=== PATIENT | male | born 1990 | race Caucasian/White ===

== ENCOUNTER 2017-06-11 11:19 | Emergency (ER) | payer BC, OTHER ==
[~2017-06-11] VITALS: Ht 175.3 cm; Wt 111.9 kg
[~2017-06-11 11:19] MED LIST: ALBUAER INH; AMPH30TA2 PO; LAMO1TAB21 PO; LNS3 PO; OMEP20CA9 PO; SERT-234 PO
[2017-06-11 11:21] VITALS: TEMP 36.7; Ht 175.3 cm; Wt 111.9 kg
[2017-06-11] MEDS ORDERED: SODIUM CHLORIDE 0.9% 1000ML 1,000 ML IV STA (11:51)
[2017-06-11] MEDS ORDERED: HYDROmorphone INJ 1 MG/ML SYR IV STA (11:51)
[2017-06-11] MEDS ORDERED: ONDANSETRON INJ 2 MG/ML 2 ML VIAL IV STA (11:51)
--- NOTE | 2017-06-11 11:54 | EMERGENCY ROOM VISIT NOTE ---
History First contact with patient: 11:47 Chief Complaint: URINARY SYMPTOMS Stated Complaint: URINATING BLOOD, BACK PAIN, TESTICLE PAIN Nursing Triage Summary: Pt c/o right-sided flank pain and testicular pain along with nausea. Admits to hematuria and burning with urination. Hx of kidney stones. History of Present Illness The patient is a 26 year old male who presents to the Emergency Room with complaints of right-sided flank pain. The patient states that he has had some mild pain since last Thursday. He states the pain has progressively worsened and today it was not tolerable. The patient rates his discomfort a 10/10. He reports the pain radiates into the right abdomen and right testicle. He reports dysuria and hematuria. He has a history of kidney stones but states this feels worse. He denies any fevers. He denies any earache, sore throat, cough. Review of Systems A 10 system review of systems was completed with positives and pertinent negatives listed in the HPI. Past Medical/Surgical History Medical Problems: (1) No significant medical problems Surgical Problems: (1) No significant past surgical history Social History Smoking Status: Never Smoker Alcohol Use: occasionally Marital Status: single Occupation Status: employed Current/Historical Medications Scheduled Eszopiclone (Lunesta), 3 MG PO DAILY Lamotrigine (Lamotrigine), 100 MG PO DAILY Tamsulosin Hcl (Flomax), 0.4 MG PO DAILY Scheduled PRN Amphetamine-Dextroamphetamine 30MG (Adderall 30MG), 30 MG PO DAILY PRN for INABILITY TO CONCENTRATE Omeprazole (Prilosec), 20 MG PO DAILY PRN for REFLUX Oxycodone Ir (Roxicodone Ir), 1-2 TAB PO Q4H PRN for Pain Physical Exam Vital Signs Date Time Temp Pulse Resp B/P (MAP) Pulse Ox O2 Delivery O2 Flow Rate FiO2 06/11/17 14:25 68 16 123/89 95 06/11/17 13:02 69 18 138/95 94 Room Air 06/11/17 11:21 36.7 89 20 148/110 93 Room Air Physical Exam VITALS: Vitals are noted on the nurse's note and reviewed by myself. Vital signs stable. GENERAL: This is a 26-year-old male, who appears to be in pain, nondiaphoretic, well-developed well-nourished. SKIN: The skin was without rashes, erythema, edema, or bruising. There is no tenting of the skin. Capillary reflex less than 2 seconds. HEAD: Normocephalic atraumatic. EARS: The external ears are normal in appearance. EYES: Pupils equal round and reactive to light and accommodation. Conjunctivae without injection, sclerae without icterus. Extraocular movements intact. NOSE: Patent, turbinates without inflammation or discharge. MOUTH: Mucous membranes moist. Tonsils are not enlarged. Pharynx without erythema or exudate. Uvula midline. Airway patent. Tongue does not deviate. NECK: Supple without nuchal rigidity. No JVD. HEART: Regular rate and rhythm without murmurs gallops or rubs. LUNGS: Clear to auscultation bilaterally without wheezes, rales or rhonchi. No retractions or accessory muscle use. ABDOMEN: Positive bowel sounds x 4. Soft, mild right lower quadrant tenderness , without masses or organomegaly. Mild right sided CVA tenderness MUSCULOSKELETAL: No muscle atrophy, erythema, or edema noted. Full range of motion in all extremities. Strength 5/5 throughout. NEURO: Patient was alert and oriented to person place and time. No focal neurological deficits. Medical Decision & Procedures ER Provider Diagnostic Interpretation: ABD/PELVIS WITHOUT FOR STONE HISTORY: 26 years-old Male right flank pain, history of kidney stones COMPARISON: Abdominal radiographs 06/10/2015 TECHNIQUE: Multiple axial CT images of the abdomen and pelvis were obtained without IV contrast. A dose lowering technique was used consistent with the principals of ALARA. FINDINGS: There is minimal dependent bibasilar atelectasis. There is no pneumoperitoneum. The imaged inferior cardiac chambers are unremarkable. The liver, spleen, gallbladder, pancreas and adrenal glands appear normal. There are several nonobstructing renal calculi on the left measuring up to 7 mm. There is mild right-sided obstructive uropathy secondary to a 4 x 4 x 4 mm calculus of the distal right ureter just proximal to the ureterovesicular junction. Additionally, there is a punctate nonobstructing calculus of the appear pole right kidney. Urinary bladder is partially collapsed. Prostate is unremarkable. The abdominal aorta is normal in course and caliber without bulky adenopathy. There is a small duodenal diverticulum. No bowel obstruction. Moderate volume of formed stool seen within the rectosigmoid. The appendix appears noninflamed. Bones and soft tissues are unremarkable. Small annular disc bulge seen at L5-S1. IMPRESSION: 1. Mild right-sided obstructive uropathy secondary to a 4 x 4 x 4 mm calculus of the distal right ureter just proximal to the ureterovesicular junction. 2. Additional nonobstructing renal calculi are present, left greater than right. Laboratory Results 06/11/17 11:39 Red Blood Count 5.57, Mean Corpuscular Volume 86.9, Mean Corpuscular Hemoglobin 29.1, Mean Corpuscular Hemoglobin Concent 33.5, Mean Platelet Volume 9.4, Neutrophils (%) (Auto) 53.4, Lymphocytes (%) (Auto) 34.2, Monocytes (%) (Auto) 9.3, Eosinophils (%) (Auto) 2.7, Basophils (%) (Auto) 0.3, Neutrophils # (Auto) 4.18, Lymphocytes # (Auto) 2.68, Monocytes # (Auto) 0.73, Eosinophils # (Auto) 0.21, Basophils # (Auto) 0.02 06/11/17 11:39 Test 06/11/17 00:00 06/11/17 11:39 Urine Color RED Urine Appearance TURBID (CLEAR) Urine pH 6.0 (4.5-7.5) Urine Specific [place] 1.025 (1.000-1.030) Urine Protein 2+ (NEG) Urine Glucose (UA) NEG (NEG) Urine Ketones NEG (NEG) Urine Occult Blood 3+ (NEG) Urine Nitrite NEG (NEG) Urine Bilirubin 1+ (NEG) Urine Urobilinogen NEG (NEG) Urine Leukocyte Esterase NEG (NEG) Urine RBC >30 /hpf (0-4) Urine WBC 1-5 /hpf (0-5) Urine Epithelial Cells 0-5 /lpf (0-5) Urine Bacteria NEG (NEG) Urine Mucus PRESENT (NONE PRSENT) White Blood Count 7.83 K/uL (4.8-10.8) Red Blood Count 5.57 M/uL (4.7-6.1) Hemoglobin 16.2 g/dL (14.0-18.0) Hematocrit 48.4 % (42-52) Mean Corpuscular Volume 86.9 fL (80-100) Mean Corpuscular Hemoglobin 29.1 pg (25-34) Mean Corpuscular Hemoglobin Concent 33.5 g/dl (32-36) Platelet Count 254 K/uL (130-400) Mean Platelet Volume 9.4 fL (7.4-10.4) Neutrophils (%) (Auto) 53.4 % Lymphocytes (%) (Auto) 34.2 % Monocytes (%) (Auto) 9.3 % Eosinophils (%) (Auto) 2.7 % Basophils (%) (Auto) 0.3 % Neutrophils # (Auto) 4.18 K/uL (1.4-6.5) Lymphocytes # (Auto) 2.68 K/uL (1.2-3.4) Monocytes # (Auto) 0.73 K/uL (0.11-0.59) Eosinophils # (Auto) 0.21 K/uL (0-0.5) Basophils # (Auto) 0.02 K/uL (0-0.2) RDW Standard Deviation 41.0 fL (36.4-46.3) RDW Coefficient of Variation 12.7 % (11.5-14.5) Immature Granulocyte % (Auto) 0.1 % Immature Granulocyte # (Auto) 0.01 K/uL (0.00-0.02) Anion Gap 5.0 mmol/L (3-11) Est Creatinine Clear Calc Drug Dose 124.4 ml/min Estimated GFR () 106.1 Estimated GFR (Non- 91.5 BUN/Creatinine Ratio 10.5 (10-20) Calcium Level 9.2 mg/dl (8.5-10.1) Total Bilirubin 1.1 mg/dl (0.2-1) Aspartate Amino Transf (AST/SGOT) 16 U/L (15-37) Alanine Aminotransferase (ALT/SGPT) 38 U/L (12-78) Alkaline Phosphatase 82 U/L (45-117) Total Protein 7.8 gm/dl (6.4-8.2) Albumin 4.1 gm/dl (3.4-5.0) Globulin 3.7 gm/dl (2.5-4.0) Albumin/Globulin Ratio 1.1 (0.9-2) Lipase 101 U/L (73-393) Medications Administered Medications (Trade) Dose Ordered Sig/Brain Route Start Time Stop Time Status Last Admin Dose Admin Sodium Chloride 1,000 ml @ 999 mls/hr Q1H1M STAT IV 06/11/17 11:51 06/11/17 12:51 DC 06/11/17 11:58 999 MLS/HR Hydromorphone HCl (Dilaudid Inj) 1 mg NOW STAT IV 06/11/17 11:51 06/11/17 11:53 DC 06/11/17 11:58 1 MG Ondansetron HCl (Zofran Inj) 4 mg NOW STAT IV 06/11/17 11:51 06/11/17 11:53 DC 06/11/17 11:57 4 MG Ketorolac Tromethamine (Toradol Inj) 30 mg NOW STAT IV 06/11/17 13:04 06/11/17 13:06 DC 06/11/17 13:21 30 MG Tamsulosin HCl (Flomax Cap) 0.4 mg NOW ONCE PO 06/11/17 14:15 06/11/17 14:16 DC 06/11/17 14:06 0.4 MG ED Course The patient was seen and examined. Previous visits were reviewed. The patient does not have a fever or leukocytosis. He does not have any significant electrolyte abnormality. Lipase is not elevated. Urinalysis suggests contamination and hematuria. CT scan of the abdomen and pelvis reveals a 4 x 4 x 4 mm stone at the right UVJ. The patient does have several other stones in the poles of the kidneys and he was advised of this. The patient was hydrated with 1 L of normal saline solution He was given 1 mg IV Dilaudid and 4 mg IV Zofran and his pain improved only for a short time He was given 30 mg IV Toradol with marked improvement in his pain He was given oral Flomax The patient presents to the emergency department with right-sided flank pain. The patient has a history of kidney stones. He also has hematuria. The patient was found to have the above stone at the right UVJ. He is afebrile. He does not seem to have urinary tract infection. The patient was comfortable after the above treatment. I did discuss and offer admission to the hospital but the patient would like to try outpatient management. He was given prescriptions for Flomax and oxycodone. He was given the information for the on -call urologist in the event that his symptoms do not improve and he does not pass the stone. He should return to the ER with any worsening symptoms, intractable pain or fevers. The case was discussed with Dr. Munoz who agrees with the assessment and treatment plan. Medical Decision DIFFERENTIAL DIAGNOSIS: Hepatitis, cholecystitis, cholangitis, biliary colic, pancreatitis, pneumonia, subdiaphragmatic abscess, appendicitis, inguinal hernia , nephrolithiasis, inflammatory bowel disease, mesenteric adenitis, peptic ulcer disease, GERD, gastritis, pancreatitis, myocardial infarction, pericarditis, ruptured aortic aneurysm, appendicitis, gastroenteritis, bowel obstruction, splenic infarct, diverticulitis, mesenteric ischemia, metabolic, peritonitis, among others. [place] Drug Monitoring Program Search Results: patient reviewed within database, no issues identified Medication Reconcilliation Current Medication List: was personally reviewed by ak Blood Pressure Screening Patient's blood pressure: Normal blood pressure Blood pressure disposition: Did not require urgent referral Impression Primary Impression: Kidney stone Departure Information Dispostion Home / Self-Care Condition GOOD Prescriptions Oxycodone Ir (Roxicodone Ir) 5 Mg Tab 1-2 TAB PO Q4H Y for Pain, #36 TAB For Initial Treatment Prov: Lisseth Post PA-C 06/11/17 Tamsulosin Hcl (FLOMAX) 0.4 Mg Cap 0.4 MG PO DAILY for 7 Days, #7 CAP Prov: Lisseth Post PA-C 06/11/17 Referrals Rick Trejo M.D. (PCP) Jose Pradhan MD, Urology Forms HOME CARE DOCUMENTATION FORM, IMPORTANT VISIT INFORMATION, Work Instructions Return To Work: 3 days Patient Instructions [facility] [employer] Additional Instructions -Motrin 600 mg every 6-8 hours or moderate pain Oxy IR 1-2 tablets every 4-6 hrs as needed for worse pain. No driving or alcohol use with Oxy IR. Increase water intake Contact urology if symptoms are not improving Return with intractable pain or fevers
[2017-06-11 12:02] LABS: BASO % 0.3 %; BASO ABS # 0.02 K/uL (0-0.2); COMPLETE YES; EOS % 2.7 %; HEMATOCRIT 48.4 % (42-52); IG% 0.1 %; LYMPH % 34.2 %; LYMPH ABS # 2.68 K/uL (1.2-3.4); MEAN CELL VOLUME 86.9 fL (80-100); MEAN CORPUSCULAR HEMOGLOBIN 29.1 pg (25-34); MEAN CORPUSCULAR HGB CONC 33.5 g/dl (32-36); MEAN PLATELET VOLUME 9.4 fL (7.4-10.4); MONO % 9.3 %; NEUT % 53.4 %; PLATELET COUNT 254 K/uL (130-400); RED BLOOD COUNT 5.57 M/uL (4.7-6.1); WHITE BLOOD COUNT 7.83 K/uL (4.8-10.8)
[2017-06-11 12:19] LABS: MANUAL MICROSCOPIC REQUIRED? YES; URINE APPEARANCE TURBID (CLEAR); URINE COLOR RED; URINE NITRITE NEG (NEG); URINE SPECIFIC GRAVITY 1.025 (1.000-1.030); UROBILINOGEN NEG (NEG)
[2017-06-11 12:21] LABS: REVIEW REQ? NO; URINE BILIRUBIN 1+ (NEG)
[2017-06-11 12:22] LABS: BUN/CREATININE RATIO 10.5 (10-20); CALCIUM 9.2 mg/dl (8.5-10.1); CREATININE 1.1 mg/dl (0.60-1.40); POTASSIUM 3.9 mmol/L (3.5-5.1)
[2017-06-11 12:27] LABS: URINE BACTERIA NEG (NEG); URINE MUCUS PRESENT (NONE PRSENT); URINE RBC >30 /hpf (0-4)
[2017-06-11 12:28] LABS: ZZUR CULT IF INDIC CLEAN CATCH NO
[2017-06-11 12:30] LABS: ALB/GLOB RATIO 1.1 (0.9-2)
--- NOTE | 2017-06-11 12:58 | DIAGNOSTIC IMAGING REPORT ---
ABD/PELVIS WITHOUT FOR STONE HISTORY: 26 years-old Male right flank pain, history of kidney stones COMPARISON: Abdominal radiographs 06/10/2015 TECHNIQUE: Multiple axial CT images of the abdomen and pelvis were obtained without IV contrast. A dose lowering technique was used consistent with the principals of JADE. FINDINGS: There is minimal dependent bibasilar atelectasis. There is no pneumoperitoneum. The imaged inferior cardiac chambers are unremarkable. The liver, spleen, gallbladder, pancreas and adrenal glands appear normal. There are several nonobstructing renal calculi on the left measuring up to 7 mm. There is mild right-sided obstructive uropathy secondary to a 4 x 4 x 4 mm calculus of the distal right ureter just proximal to the ureterovesicular junction. Additionally, there is a punctate nonobstructing calculus of the appear pole right kidney. Urinary bladder is partially collapsed. Prostate is unremarkable. The abdominal aorta is normal in course and caliber without bulky adenopathy. There is a small duodenal diverticulum. No bowel obstruction. Moderate volume of formed stool seen within the rectosigmoid. The appendix appears noninflamed. Bones and soft tissues are unremarkable. Small annular disc bulge seen at L5-S1. IMPRESSION: 1. Mild right-sided obstructive uropathy secondary to a 4 x 4 x 4 mm calculus of the distal right ureter just proximal to the ureterovesicular junction. 2. Additional nonobstructing renal calculi are present, left greater than right. The above report was generated using voice recognition software. It may contain grammatical, syntax or spelling errors. Electronically signed by: Crispin Choi M.D. 06/11/2017 12:56 PM Dictated Date/Time: 06/11/2017 12:52 PM
[2017-06-11] MEDS ORDERED: KETOROLAC TROMETHAMINE 30 MG/ML VIAL IV STA (13:04)
[2017-06-11] MEDS ORDERED: TAMS0.4C38 PO (14:03)
[2017-06-11] MEDS ORDERED: OXYC1TAB3 PO (14:03)
[2017-06-11] MEDS ORDERED: TAMSULOSIN HCL 0.4 MG CAP PO ONE (14:15)
[2017-06-11 14:25] VITALS: BP 123/89; PULSE 68; O2SAT 95
[2017-06-16] MEDS ORDERED: SERT1TAB68 PO (16:17)
[2017-06-16] MEDS ORDERED: ZNTT/150 PO (16:17)
[2017-06-19] MEDS ORDERED: FLM4 (06:24)
[2017-07-07] MEDS ORDERED: ALUM-30 PO (10:21)
[2017-07-10] MEDS ORDERED: OXYC7.5T65 PO (07:45)
[2017-07-13] MEDS ORDERED: OXYB5TAB PO (16:35)
[2017-07-13] MEDS ORDERED: FLM4 PO (16:35)
== END 2017-06-11 14:25 | disposition home or self-care (01) ==
LOC: C.EDB 11:21 → C.EDA 14:25
DX: N20.0 Calculus of kidney (principal); Z87.442 Personal history of urinary calculi; Z79.899 Other long term (current) drug therapy

== ENCOUNTER → 2017-06-16 | Outpatient (CLI) | payer BC ==
[~2017-06-16] MED LIST changes: -ALBUAER INH; +ALUM-30 PO; +FLM4; +FLM4 PO; +ONDA4TAB10 SL; +OXYB5TAB PO; +OXYC1TAB3 PO; +OXYC7.5T65 PO; -SERT-234 PO; +SERT1TAB68 PO; +TAMS0.4C38 PO; +ZNTT/150 PO
--- NOTE | 2017-06-16 17:13 | DIAGNOSTIC IMAGING REPORT ---
CHEST 2 VIEWS ROUTINE CLINICAL HISTORY: N20.1 Right ureteral calculus PREOPERATIVE CHEST COMPARISON STUDY: No previous studies for comparison. FINDINGS: The cardiac and mediastinal contours are normal. There is no evidence of focal pulmonary consolidation. There is no evidence of failure. No pleural effusions are visualized.[ There are sequela from an old right AC joint separation. IMPRESSION: No active disease in the chest. Electronically signed by: Irineo Renae M.D. 06/16/2017 5:12 PM Dictated Date/Time: 06/16/2017 5:11 PM
== END | disposition home or self-care (01) ==
LOC: C.RAD 16:35
PROVIDERS: ATTEND Nurse Practitioner Adult Health
DX: N20.1 Calculus of ureter (principal)

== ENCOUNTER → 2017-06-16 | Outpatient (CLI) | payer BC ==
--- NOTE | 2017-06-16 14:23 | DIAGNOSTIC IMAGING REPORT ---
KUB CLINICAL HISTORY: 26 years-old Male presenting with right ureteral calculus. TECHNIQUE: Single supine view of the abdomen was obtained. COMPARISON: CT from 06/11/2017.. FINDINGS: Mild stool burden somewhat degrades evaluation of the kidneys. Allowing for this limitation, the largest left renal calculus is radiographically evident and possibly a smaller left upper pole calculus. These are unchanged in position from prior CT. The diminutive calculus in the right kidney is not radiographically apparent. Previously noted distal right ureteral calculus remains apparent and is unchanged in position. Phlebolith is also noted. Nonobstructive bowel gas pattern. Osseous structures intact. IMPRESSION: 1. No change in position of the distal right ureteral calculus. 2. Left nephrolithiasis radiographically apparent. Additional punctate calculus in the right kidney not apparent. Electronically signed by: Dmitry López M.D. 06/16/2017 2:22 PM Dictated Date/Time: 06/16/2017 2:18 PM
== END | disposition home or self-care (01) ==
LOC: C.RAD 13:48
PROVIDERS: ATTEND Nurse Practitioner Adult Health
DX: N20.1 Calculus of ureter (principal)

== ENCOUNTER → 2017-06-18 | Outpatient (CLI) | payer BC ==
[~2017-06-18] MED LIST changes: -OMEP20CA9 PO
--- NOTE | 2017-06-18 18:47 | DIAGNOSTIC IMAGING REPORT ---
KUB CLINICAL HISTORY: 26 years-old Male presenting with right ureteral calculus. TECHNIQUE: Single supine view of the abdomen was obtained. COMPARISON: 06/16/2017. FINDINGS: No change in positioning of the distal right ureteral calculus. No radiographically apparent right renal calculi. Presence of bowel gas and stool mildly degrades evaluation of the kidneys. Allowing for this limitation, at least one of the left renal calculi is again noted. No calculus along the course of the left ureter is apparent. Multiple phleboliths noted in the pelvis, best demonstrated on recent CT from 06/11/2017. Nonobstructive bowel gas pattern. Mild stool burden throughout the colon. Osseous structures normal. IMPRESSION: 1. Unchanged position of the distal right ureteral calculus. 2. At least one of the left renal calculi are radiographically apparent. No radiographically apparent right renal calculi. Electronically signed by: Dmitry López M.D. 06/18/2017 6:45 PM Dictated Date/Time: 06/18/2017 6:43 PM
== END | disposition home or self-care (01) ==
LOC: C.RAD 18:24
PROVIDERS: ATTEND Nurse Practitioner Adult Health
DX: N20.1 Calculus of ureter (principal); N20.0 Calculus of kidney

== ENCOUNTER 2017-06-19 16:18 | Emergency (ER) | payer BC ==
[~2017-06-19] VITALS: Ht 175.3 cm; Wt 113.0 kg
[~2017-06-19 16:18] MED LIST changes: -ACETAMINOPHEN 325 MG TAB PO PRN; -ALUM-30 PO; -ATROPINE SULFATE 0.1 MG/ML 5ML SYR IV PRN; -CIPROFLOXACIN 400MG / D5W IV SCH; -DEXAMETHASONE SOD INJ 4 MG/ML VIAL ONE; -FENTANYL CITRATE INJ 50 MCG/1 ML 2 ML VIAL IV PRN; -FENTANYL CITRATE INJ 50 MCG/1 ML 2 ML VIAL ONE; -FLM4 PO; -KETOROLAC TROMETHAMINE 30 MG/ML VIAL IV. PRN; -LABETALOL HCL IV 5 MG/ML 20ML IV PRN; -LACTATED RINGER'S 1000ML 1,000 ML IV SCH; -LIDOCAINE HCL 2% 2 ML VIAL (20MG/ML) ONE; -MIDAZOLAM HCL 1 MG/ML 2ML VIAL ONE; -ONDA4TAB10 SL; -ONDANSETRON INJ 2 MG/ML 2 ML VIAL IV PRN; -ONDANSETRON INJ 2 MG/ML 2 ML VIAL ONE; -OXYB5TAB PO; -OXYC7.5T65 PO; -PROPOFOL IV EMULSION 10 MG/ML 20 ML VIAL IV ONE; -SODIUM CHLORIDE 0.9% 1000ML 1,000 ML IV SCH
[2017-06-19 16:24] VITALS: TEMP 37; Ht 175.3 cm; Wt 113.0 kg
[2017-06-19] MEDS ORDERED: HYDROmorphone INJ 1 MG/ML SYR IV STA (16:33)
[2017-06-19] MEDS ORDERED: SODIUM CHLORIDE 0.9% 1000ML 1,000 ML IV STA (16:33)
[2017-06-19] MEDS ORDERED: ONDANSETRON INJ 2 MG/ML 2 ML VIAL IV STA (16:33)
--- NOTE | 2017-06-19 16:48 | EMERGENCY ROOM VISIT NOTE ---
History First contact with patient: 16:28 Chief Complaint: FLANK PAIN Stated Complaint: PAIN - NAUSEA - VOMIT - LITHOTRIPSY THIS AM History of Present Illness The patient is a 26 year old male who presents to the Emergency Room with complaints of right flank pain and vomiting which began after a lithotripsy this morning. The patient states that he had a lithotripsy for a right ureteral stone approximately 8 hours ago. He reports "excruciating" pain since the completion of the procedure. He has had nausea and vomiting and difficulty urinating. He took oxycodone without relief. He rates his discomfort a 10/10. He does have a significant history of kidney stones but has never had to have surgery prior to this. He denies any fevers/chills. Review of Systems A complete 10 point review of systems was reviewed with the patient with pertinent positives and negatives as per history of present illness. All else were negative. Past Medical/Surgical History Medical Problems: (1) No significant medical problems Surgical Problems: (1) No significant past surgical history Social History Smoking Status: Never Smoker Alcohol Use: occasionally Marital Status: single Occupation Status: employed Current/Historical Medications Scheduled Eszopiclone (Lunesta), 3 MG PO QPM Lamotrigine (Lamotrigine), 100 MG PO HS Ondasetron Odt (Zofran Odt), 4 MG SL Q6H Sertraline Hcl (Zoloft), 100 MG PO QAM Scheduled PRN Amphetamine-Dextroamphetamine 30MG (Adderall 30MG), 30 MG PO DAILY PRN for INABILITY TO CONCENTRATE Oxycodone Ir (Roxicodone Ir), 1-2 TAB PO Q4H PRN for Pain Ranitidine (Zantac), 150 MG PO DAILY PRN for HEARTBURN Miscellaneous Medications Tamsulosin HCl (Tamsulosin HCl) Physical Exam Vital Signs Date Time Temp Pulse Resp B/P (MAP) Pulse Ox O2 Delivery O2 Flow Rate FiO2 06/19/17 19:02 82 16 142/78 98 Room Air 06/19/17 18:25 87 20 124/62 95 06/19/17 17:03 90 06/19/17 17:00 82 20 120/76 92 Room Air 06/19/17 16:24 37.0 97 18 139/94 95 Room Air Physical Exam VITALS: Vitals are noted on the nurse's note and reviewed by myself. Vital signs stable. GENERAL: This is a 26-year-old male, uncomfortable appearing, well-developed well-nourished. HEART: Regular rate and rhythm without murmurs gallops or rubs. LUNGS: Clear to auscultation bilaterally without wheezes, rales or rhonchi. ABDOMEN: Positive bowel sounds x 4. No tenderness to palpation in the right mid to lower abdomen. No guarding or rebound tenderness. Positive right CVA tenderness. NEURO: Patient was alert and oriented to person place and time. Medical Decision & Procedures ER Provider Diagnostic Interpretation: KUB IMPRESSION: 1. Interval passage of the distal right ureteral calculus. 2. Stable left renal calculi. No radiographically apparent right renal calculi. ABD/PELVIS NO IV OR ORAL CONT IMPRESSION: 1. Slight migration of the right ureteral calculus, which is now impacted at the right ureterovesical junction. 2. Stable slight interval increase in right collecting system and right ureteral dilation, possibly worsening obstruction. 3. Bilateral nephrolithiasis, greater on the left. Laboratory Results 06/19/17 16:37 Red Blood Count 5.07, Mean Corpuscular Volume 86.6, Mean Corpuscular Hemoglobin 30.6, Mean Corpuscular Hemoglobin Concent 35.3, Mean Platelet Volume 9.5, Neutrophils (%) (Auto) 83.8, Lymphocytes (%) (Auto) 10.1, Monocytes (%) (Auto) 5.6, Eosinophils (%) (Auto) 0.2, Basophils (%) (Auto) 0.1, Neutrophils # (Auto) 11.41, Lymphocytes # (Auto) 1.37, Monocytes # (Auto) 0.77, Eosinophils # (Auto) 0.03, Basophils # (Auto) 0.02 06/19/17 16:37 Test 06/19/17 16:30 06/19/17 16:37 Urine Color YELLOW Urine Appearance CLEAR (CLEAR) Urine pH 5.0 (4.5-7.5) Urine Specific [place] 1.019 (1.000-1.030) Urine Protein TRACE (NEG) Urine Glucose (UA) NEG (NEG) Urine Ketones TRACE (NEG) Urine Occult Blood 3+ (NEG) Urine Nitrite NEG (NEG) Urine Bilirubin NEG (NEG) Urine Urobilinogen NEG (NEG) Urine Leukocyte Esterase TRACE (NEG) Urine WBC (Auto) 5-10 /hpf (0-5) Urine RBC (Auto) >30 /hpf (0-4) Urine Hyaline Casts (Auto) 1-5 /lpf (0-5) Urine Epithelial Cells (Auto) 5-10 /lpf (0-5) Urine Bacteria (Auto) NEG (NEG) White Blood Count 13.63 K/uL (4.8-10.8) Red Blood Count 5.07 M/uL (4.7-6.1) Hemoglobin 15.5 g/dL (14.0-18.0) Hematocrit 43.9 % (42-52) Mean Corpuscular Volume 86.6 fL (80-100) Mean Corpuscular Hemoglobin 30.6 pg (25-34) Mean Corpuscular Hemoglobin Concent 35.3 g/dl (32-36) Platelet Count 195 K/uL (130-400) Mean Platelet Volume 9.5 fL (7.4-10.4) Neutrophils (%) (Auto) 83.8 % Lymphocytes (%) (Auto) 10.1 % Monocytes (%) (Auto) 5.6 % Eosinophils (%) (Auto) 0.2 % Basophils (%) (Auto) 0.1 % Neutrophils # (Auto) 11.41 K/uL (1.4-6.5) Lymphocytes # (Auto) 1.37 K/uL (1.2-3.4) Monocytes # (Auto) 0.77 K/uL (0.11-0.59) Eosinophils # (Auto) 0.03 K/uL (0-0.5) Basophils # (Auto) 0.02 K/uL (0-0.2) RDW Standard Deviation 39.8 fL (36.4-46.3) RDW Coefficient of Variation 12.5 % (11.5-14.5) Immature Granulocyte % (Auto) 0.2 % Immature Granulocyte # (Auto) 0.03 K/uL (0.00-0.02) Anion Gap 7.0 mmol/L (3-11) Est Creatinine Clear Calc Drug Dose 98.2 ml/min Estimated GFR () 79.2 Estimated GFR (Non- 68.4 BUN/Creatinine Ratio 9.9 (10-20) Calcium Level 8.9 mg/dl (8.5-10.1) Total Bilirubin 0.7 mg/dl (0.2-1) Direct Bilirubin 0.1 mg/dl (0-0.2) Aspartate Amino Transf (AST/SGOT) 21 U/L (15-37) Alanine Aminotransferase (ALT/SGPT) 42 U/L (12-78) Alkaline Phosphatase 76 U/L (45-117) Total Protein 7.6 gm/dl (6.4-8.2) Albumin 4.1 gm/dl (3.4-5.0) Lipase 97 U/L (73-393) Medications Administered Medications (Trade) Dose Ordered Sig/Brain Route Start Time Stop Time Status Last Admin Dose Admin Sodium Chloride 1,000 ml @ 999 mls/hr Q1H1M STAT IV 06/19/17 16:33 06/19/17 17:33 DC 06/19/17 16:42 999 MLS/HR Hydromorphone HCl (Dilaudid Inj) 1 mg NOW STAT IV 06/19/17 16:33 06/19/17 16:36 DC 06/19/17 16:43 1 MG Ondansetron HCl (Zofran Inj) 4 mg NOW STAT IV 06/19/17 16:33 06/19/17 16:36 DC 06/19/17 16:42 4 MG Ketorolac Tromethamine (Toradol Inj) 30 mg NOW STAT IV 06/19/17 18:20 06/19/17 18:22 DC 06/19/17 18:29 30 MG Ondansetron HCl (ZOFRAN ODT 4MG Home Pack) 1 homepack UD ONCE PO 06/19/17 18:45 06/19/17 18:46 DC 06/19/17 18:45 1 HOMEPACK ED Course The patient was evaluated as above. Labs were drawn and IV access was obtained. Patient was medicated with 1 mg Dilaudid, 4 mg Zofran and 1 L normal saline solution. KUB was performed and read by radiology as above. CT of the abdomen and pelvis was performed and read by radiology as above. Patient was reevaluated and findings were discussed. He was given 30 mg IV Toradol for pain. Case was discussed with Dr. Pollard of urology. He felt the patient could be discharged home or admitted if needed for pain control. I discussed this with the patient and he prefers to be discharged. Discharge instructions were reviewed with the patient. The patient verbalized understanding of my assessment and treatment plan and was discharged home in good condition. Medical Decision Differential diagnosis includes obstructing ureteral stone, pyelonephritis, parenchymal injury, hematoma, anesthesia reaction, among others. The patient is a 26-year-old male who presents today complaining of right flank pain after a lithotripsy performed today. Labs revealed mild leukocytosis possibly secondary to pain. No concerning anemia or electrolyte abnormalities. Urinalysis showed 3+ occult blood but was not suggestive of infection. KUB was initially performed and did not show an obstructing ureteral calculus. Due to the patient's severe pain and concern for the possibility of a parenchymal injury, I did choose to perform a CT scan of the abdomen and pelvis. This showed a migration of the stone, which is now located at the UVJ. I spoke with Dr. Pollard, the urologist who performed the lithotripsy today. He felt that this represented active passage of the stone and that the patient could either be admitted for pain control or discharged home. The patient prefers to be discharged home and was given a prescription for Zofran. He has pain medication at home from a previous prescription which she will take. He was instructed to follow-up with urology next week as needed. He may return here for any worsening of his current condition or new/concerning symptoms. Based on the patient's presentation and work up, I feel the patient is stable for outpatient treatment. The patient was educated to return to the emergency department for any worsening of their current condition or new/concerning symptoms. He will follow up with urology. Medication Reconcilliation Current Medication List: was personally reviewed by me Blood Pressure Screening Patient's blood pressure: Normal blood pressure Impression Primary Impression: Right ureteral calculus Departure Information Dispostion Home / Self-Care Condition GOOD Prescriptions Ondasetron Odt (ZOFRAN ODT) 4 Mg Tab 4 MG SL Q6H for Nausea, #15 TAB Prov: Shantel Hadley PA-C 06/19/17 Referrals Rick Trejo M.D. (PCP) Patient Instructions My [facility] Additional Instructions You have been treated in the Emergency Department today for a Kidney Stone ( Nephrolithiasis). You have received pain medicine in the emergency department which impairs your ability to operate a vehicle. It is illegal for you to drive after receiving these medicines. Continue your pain medication as prescribed. You have been prescribed Zofran to be used for any nausea or vomiting. Take as prescribed. For pain control, you can use the following [id number] medicines (if >12 yo): - Regular strength (325mg/tab) Tylenol (acetaminophen) 2 tabs every 4-6 hours as needed. Do not exceed 12 tablets in a 24 hour period. Avoid taking more than 4 grams (4000 mg) of Tylenol per day. This includes any other sources of acetaminophen you may take on a regular basis. - Regular strength (200 mg/tab) Advil (ibuprofen) 1-2 tabs every 4-6 hours as needed. Do not exceed a dose of 3200 mg per day. You have been provided a strainer and specimen collection cup. You should strain your urine to collect any passed stones. Your stones can be placed into the specimen cup and taken to your Urologist for further evaluation. Call Dr. Pollard next week to schedule follow-up as needed. Return to the Emergency Department if your symptoms persist despite the treatment plan outlined above or if you develop the following symptoms: intractable pain, fever, chills, or large amounts of blood in your urine.
[2017-06-19 16:50] LABS: BASO % 0.1 %; BASO ABS # 0.02 K/uL (0-0.2); COMPLETE YES; EOS % 0.2 %; HEMATOCRIT 43.9 % (42-52); IG% 0.2 %; LYMPH % 10.1 %; LYMPH ABS # 1.37 K/uL (1.2-3.4); MEAN CELL VOLUME 86.6 fL (80-100); MEAN CORPUSCULAR HEMOGLOBIN 30.6 pg (25-34); MEAN CORPUSCULAR HGB CONC 35.3 g/dl (32-36); MEAN PLATELET VOLUME 9.5 fL (7.4-10.4); MONO % 5.6 %; NEUT % 83.8 %; PLATELET COUNT 195 K/uL (130-400); RED BLOOD COUNT 5.07 M/uL (4.7-6.1); WHITE BLOOD COUNT 13.63 K/uL (4.8-10.8)
[2017-06-19 17:01] LABS: URINE APPEARANCE CLEAR (CLEAR); URINE BILIRUBIN NEG (NEG); URINE COLOR YELLOW; URINE NITRITE NEG (NEG); URINE SPECIFIC GRAVITY 1.019 (1.000-1.030); UROBILINOGEN NEG (NEG); ZZUR CULT IF INDIC CLEAN CATCH NO
[2017-06-19 17:02] LABS: MANUAL MICROSCOPIC REQUIRED? NO; REVIEW REQ? NO
--- NOTE | 2017-06-19 17:03 | DIAGNOSTIC IMAGING REPORT ---
KUB CLINICAL HISTORY: 26 years-old Male presenting with right flank pain, lithotripsy today. TECHNIQUE: Single supine view of the abdomen was obtained. COMPARISON: 06/18/2017. FINDINGS: Normal bowel gas pattern. No evidence of free intraperitoneal gas, pneumatosis, or portal venous gas. Osseous structures normal. Previously noted distal right ureteral calculus is no longer present. Multiple pelvic phleboliths again noted. No radiographically apparent right renal calculi. Previously noted left renal calculus remains evident likely with an upper pole left renal calculus also identified, unchanged in position. IMPRESSION: 1. Interval passage of the distal right ureteral calculus. 2. Stable left renal calculi. No radiographically apparent right renal calculi. Electronically signed by: Dmitry López M.D. 06/19/2017 5:01 PM Dictated Date/Time: 06/19/2017 5:00 PM
[2017-06-19 17:13] LABS: BUN/CREATININE RATIO 9.9 (10-20); CALCIUM 8.9 mg/dl (8.5-10.1); CREATININE 1.4 mg/dl (0.60-1.40)
--- NOTE | 2017-06-19 17:56 | DIAGNOSTIC IMAGING REPORT ---
ABD/PELVIS NO IV OR ORAL CONT CLINICAL HISTORY: 26 years-old Male presenting with right flank pain, lithotripsy today. TECHNIQUE: Multidetector CT of the abdomen and pelvis was performed without the use of intravenous contrast. IV contrast: None. A dose lowering technique was used consistent with the principles of ALARA (as low as reasonably achievable). COMPARISON: 06/11/2017. CT DOSE (mGy.cm): The estimated cumulative dose is 1180.28 mGy.cm. FINDINGS: Embedded Systems Engineer topogram: Unremarkable. Lung bases: Minimal dependent changes likely atelectasis. Normal heart size. No pericardial or pleural effusion. Liver: Normal morphology. Hepatic steatosis. Biliary: No gross biliary ductal dilatation allowing for noncontrast technique. Normal gallbladder. Pancreas: Normal. Spleen: Normal. Adrenal glands: Normal. Kidneys and ureters: Previously noted calculus in the distal ureter has migrated slightly and is now impacted at the right ureterovesical junction (series 3 image 414). Dilated right ureter and right renal collecting system stable to slightly increased from prior. Mild right perinephric fat stranding. Nonobstructing renal calculi bilaterally, the largest on the left measuring 6 mm. No left hydronephrosis. Left ureter normal. Bladder: No bladder calculi. Bladder wall normal. Pelvic organs: Prostate and seminal vesicles normal. Bowel: Intramural fat deposition within the colon, nonspecific. Normal appendix. No bowel obstruction. Peritoneal cavity: No free fluid or intraperitoneal gas. Vasculature: Normal noncontrast appearance. Lymph nodes: No enlarged lymph nodes in the abdomen or pelvis. Abdominal wall: Normal. Musculoskeletal: Normal. IMPRESSION: 1. Slight migration of the right ureteral calculus, which is now impacted at the right ureterovesical junction. 2. Stable slight interval increase in right collecting system and right ureteral dilation, possibly worsening obstruction. 3. Bilateral nephrolithiasis, greater on the left. Electronically signed by: Dmitry López M.D. 06/19/2017 5:54 PM Dictated Date/Time: 06/19/2017 5:48 PM
[2017-06-19] MEDS ORDERED: KETOROLAC TROMETHAMINE 30 MG/ML VIAL IV STA (18:20)
[2017-06-19] MEDS ORDERED: ONDANSETRON HOME PACK 4MG OD TAB PO ONE (18:45)
[2017-06-19] MEDS ORDERED: ONDA4TAB10 SL (18:49)
[2017-06-19 19:02] VITALS: BP 142/78; PULSE 82; O2SAT 98
[2017-07-07] MEDS ORDERED: ALUM-30 PO (10:21)
[2017-07-10] MEDS ORDERED: OXYC7.5T65 PO (07:45)
[2017-07-13] MEDS ORDERED: FLM4 PO (16:35)
[2017-07-13] MEDS ORDERED: OXYB5TAB PO (16:35)
== END 2017-06-19 19:10 | disposition home or self-care (01) ==
LOC: C.EDB 16:20 → C.EDA 19:10
DX: N20.1 Calculus of ureter (principal); Z87.442 Personal history of urinary calculi

== ENCOUNTER → 2017-06-19 | Day surgery (SDC) | payer BC ==
[2017-06-16 16:18] VITALS: Ht 175.3 cm; Wt 110.9 kg
[~2017-06-19] VITALS: Ht 175.3 cm; Wt 110.9 kg
[~2017-06-19] MED LIST changes: +ACETAMINOPHEN 325 MG TAB PO PRN; +ATROPINE SULFATE 0.1 MG/ML 5ML SYR IV PRN; +CIPROFLOXACIN 400MG / D5W IV SCH; +DEXAMETHASONE SOD INJ 4 MG/ML VIAL ONE; +FENTANYL CITRATE INJ 50 MCG/1 ML 2 ML VIAL IV PRN; +FENTANYL CITRATE INJ 50 MCG/1 ML 2 ML VIAL ONE; +KETOROLAC TROMETHAMINE 30 MG/ML VIAL IV. PRN; +LABETALOL HCL IV 5 MG/ML 20ML IV PRN; +LACTATED RINGER'S 1000ML 1,000 ML IV SCH; +LIDOCAINE HCL 2% 2 ML VIAL (20MG/ML) ONE; +MIDAZOLAM HCL 1 MG/ML 2ML VIAL ONE; +ONDANSETRON INJ 2 MG/ML 2 ML VIAL IV PRN; +ONDANSETRON INJ 2 MG/ML 2 ML VIAL ONE; +PROPOFOL IV EMULSION 10 MG/ML 20 ML VIAL IV ONE; +SODIUM CHLORIDE 0.9% 1000ML 1,000 ML IV SCH
--- NOTE | 2017-06-19 06:59 | History & Physical Bridge Note ---
H&P Re-Evaluation Bridge Note: I have examined the patient, reviewed the History & Physical and in the interval since the performance of the History & Physical I have noted the following changes of clinical significance: No changes noted
--- NOTE | 2017-06-19 07:39 | Discharge Instructions-SurgCtr ---
Discharge Instructions Date of Service Jun 19, 2017. Visit Reason for Visit: Stones Discharge Discharge Diagnosis / Problem: stones Discharge Goals Goal(s): Decrease discomfort, Improve function, Increase independence, Improve disease control Activity Recommendations Activity Limitations: resume your previous activity Lifting Limitations: none Exercise/Sports Limitations: none May Resume Sexual Activity: when tolerated Shower/Bathe: no limitations Driving or Machine Use: no limitations Anesthesia . Post Anesthesia Instructions: If you have had General Anesthesia or IV Sedation: * Do not drive today. * Resume driving when surgeon permits. * Do not make important decisions or sign legal documents today. * Call surgeon for: 1. Temperature elevations greater than 101 degrees F. 2. Uncontrollable pain. 3. Excessive bleeding. 4. Persistent nausea and vomiting. 5. Medication intolerance (nausea, vomiting or rash). * For nausea and vomiting use only clear liquids such as: tea, soda, bouillon until nausea subsides, then gradually increase diet as tolerated. * If you have any concerns or questions, call your surgeon's office. If physician is unavailable and it is an emergency, call 911 or go to the nearest emergency room. . Instructions / Follow-Up Instructions / Follow-Up Please keep your previously scheduled follow-up Diet Recommendations Home Diet: no limitations Procedures Procedures Performed: Right Extracorporeal Shock Wave Lithotripsy - Ureteral Pending Studies Studies pending at discharge: no Medical Emergencies . Who to Call and When: Medical Emergencies: If at any time you feel your situation is an emergency, please call 911 immediately. . Non-Emergent Contact Non-Emergency issues call your: Urologist Call Non-Emergent contact if: you have a fever, temperature is above 101.5, your pain is not controlled, your pain is worsening . . "Provider Documentation" section prepared by Mikel Vargas. .
--- NOTE | 2017-06-19 07:41 | [facility] Operative Report ---
Operative Report Operative Date Jun 19, 2017. Pre-Operative Diagnosis Right ureteral calculi Post-Operative Diagnosis Same as pre-op Procedure(s) Performed Right Extracorporeal Shock Wave Lithotripsy - Ureteral Surgeon Dr. Maci Pollard Document Manager Surgeon(s) None Estimated Blood Loss 0 mL Findings Right distal ureteral stone Specimens None Drains none Anesthesia Gen. Complication(s) None Disposition Recovery Room / PACU (stable) Indications Symptomatic right ureteral stone Description of Procedure Isma Zaragoza was identified in the preoperative holding area, appropriate informed consent was reviewed and completed and the patient was transported to the operating suite. Upon arrival appropriate preoperative antibiotics were administered and general anesthesia induced. The patient was placed in supine position and the stone in the distal right ureter was localized under fluoroscopy. A total of 3000 shocks were delivered to the stone. There appeared to be good fragmentation of the stone. Details of this procedure can be found on the [facility] information sheet. At the conclusion of the case the patient was extubated and taken to the PACU in stable condition. There were no complications. I attest to the content of the Intraoperative Record and any orders documented therein. Any exceptions are noted below.
[2017-06-19 08:31] VITALS: TEMP 36.4
[2017-06-19 08:53] VITALS: BP 132/85; PULSE 57; O2SAT 97
--- NOTE | 2017-06-19 08:53 | Anesthesiology Progress Note ---
Anesthesia Post Op Note Date & Time Jun 19, 2017 at 08:52 Vital Signs Vital Signs Past 12 Hours Date Time Temp Pulse Resp B/P (MAP) Pulse Ox O2 Delivery O2 Flow Rate FiO2 06/19/17 08:31 36.4 58 16 116/78 (91) 96 Room Air 06/19/17 08:26 67 17 06/19/17 08:26 66 17 94 06/19/17 08:25 137/91 06/19/17 08:23 78 13 97 06/19/17 08:23 77 13 06/19/17 08:22 53 14 93 06/19/17 08:22 53 14 06/19/17 08:21 66 16 94 06/19/17 08:21 64 16 06/19/17 08:21 36.6 73 20 128/90 95 Room Air 06/19/17 08:20 128/90 06/19/17 08:16 55 15 06/19/17 08:16 54 15 92 06/19/17 08:15 124/95 06/19/17 08:13 68 14 93 06/19/17 08:13 68 14 06/19/17 08:12 70 15 06/19/17 08:12 71 15 94 06/19/17 08:11 79 14 06/19/17 08:11 80 14 94 06/19/17 08:10 119/92 06/19/17 08:06 62 14 97 06/19/17 08:06 64 14 06/19/17 08:05 115/86 06/19/17 08:01 65 14 97 06/19/17 08:01 64 14 06/19/17 08:00 65 14 06/19/17 08:00 66 14 120/71 96 06/19/17 07:55 66 13 06/19/17 07:55 65 13 105/79 96 06/19/17 07:50 72 109/81 94 06/19/17 07:50 36.3 80 16 109/81 97 Mask 8 06/19/17 07:50 72 06/19/17 06:24 36.7 68 18 122/83 (96) 96 Room Air Notes Mental Status: alert / awake / arousable, participated in evaluation Pt Amnestic to Procedure: Yes Nausea / Vomiting: adequately controlled Pain: adequately controlled Airway Patency, RR, SpO2: stable & adequate BP & HR: stable & adequate Hydration State: stable & adequate Anesthetic Complications: no major complications apparent
== END | disposition home or self-care (01) ==
LOC: X.SURG 06:04
PROVIDERS: ATTEND Urology
DX: N20.1 Calculus of ureter (principal); J45.909 Unspecified asthma, uncomplicated; Z87.442 Personal history of urinary calculi

== ENCOUNTER → 2017-07-01 | Outpatient (CLI) | payer BC ==
[~2017-07-01] MED LIST changes: +ALUM-30 PO; +FLM4 PO; +ONDA4TAB10 SL; +OXYB5TAB PO; +OXYC7.5T65 PO; -TAMS0.4C38 PO
--- NOTE | 2017-07-01 11:36 | DIAGNOSTIC IMAGING REPORT ---
KUB HISTORY: RIGHT URETERAL CALCULUS N20.1 COMPARISON: Abdomen and pelvis CT and KUB 06/19/2017. FINDINGS: The bowel gas pattern is unremarkable. There are no dilated loops of small bowel to suggest an obstruction. The punctate stone within the distal right ureter seen on the prior CT examination is not identified and may have passed in the interval. Stable calcifications within the right deep pelvis consistent with phleboliths. No right renal calculi. There are 3 stones within the left kidney with the largest measuring 5 mm. These remain unchanged No pneumoperitoneum or pneumatosis. IMPRESSION: 1. Stable left-sided nephrolithiasis. 2. No ureteral calculi. Electronically signed by: Anshul Clemente M.D. 07/01/2017 11:35 AM Dictated Date/Time: 07/01/2017 11:28 AM
== END | disposition home or self-care (01) ==
LOC: C.RAD 11:16
PROVIDERS: ATTEND Nurse Practitioner Adult Health
DX: N20.0 Calculus of kidney (principal)

== ENCOUNTER → 2017-07-10 | Day surgery (SDC) | payer BC ==
--- NOTE | 2017-07-03 14:27 | DIAGNOSTIC IMAGING REPORT ---
IVP W/OR W/O TOMOGRAMS HISTORY: 26 years-old Male N20.1 Right ureteral [id number] COMPARISON: KUB 07/01/2017, CT 06/19/2017 TECHNIQUE: IVP was obtained without tomograms FINDINGS: Left-sided nephrolithiasis redemonstrated with largest calculus within the interpolar region, 5 mm. No definite ureteral lithiasis identified. There is prompt uptake and excretion of contrast in the kidneys bilaterally in a generally symmetric distribution. The right kidney measures 14.4 cm in length and the left kidney measures 15.7 cm in length. No focal collecting system filling defect identified. There is mild dilation of the right ureter compared to the left without significant right renal pelvis or calyceal dilation. This is likely physiologic. As the exam progresses, the right ureter becomes normal in caliber (notably on image 10 of 10). The post void image demonstrates minimal residual contrast within the bilateral collecting systems and ureters. No focal abnormality of the bladder identified. IMPRESSION: 1. Left-sided nephrolithiasis redemonstrated. No ureteral lithiasis. 2. No focal collecting system filling defect identified. 3. Normal bilateral symmetric renal function. Minimal dilation of the mid right ureter is likely physiologic. The above report was generated using voice recognition software. It may contain grammatical, syntax or spelling errors. Electronically signed by: Crispin Choi M.D. 07/03/2017 2:26 PM Dictated Date/Time: 07/03/2017 2:19 PM
[2017-07-07 10:25] VITALS: Ht 175.3 cm; Wt 110.9 kg
--- NOTE | 2017-07-09 19:08 | DIAGNOSTIC IMAGING REPORT ---
KUB CLINICAL HISTORY: Nephrolithiasis. COMPARISON STUDY: CT of the abdomen and pelvis June 19, 2017 and IVP July 03, 2017. FINDINGS: Pelvic calcifications represent phleboliths. A 5 mm calculus within the midpole of the left kidney is noted. No ureteral calculi are identified. Bowel gas pattern is normal. IMPRESSION: 1. No change in the 5 mm left renal calculus. 2. No ureteral calculi identified. Electronically signed by: Chepe Ribeiro M.D. 07/09/2017 7:07 PM Dictated Date/Time: 07/09/2017 7:00 PM
[~2017-07-10] VITALS: Ht 175.3 cm; Wt 110.9 kg
[~2017-07-10] MED LIST changes: +ATROPINE SULFATE 0.1 MG/ML 5ML SYR IV PRN; +CIPROFLOXACIN 400MG / D5W IV SCH; +DEXAMETHASONE SOD INJ 4 MG/ML VIAL ONE; +EpHEDrine SULFATE INJ 50 MG/ML AMP IV PRN; +FENTANYL CITRATE INJ 50 MCG/1 ML 2 ML VIAL IV PRN; +FENTANYL CITRATE INJ 50 MCG/1 ML 2 ML VIAL ONE; -FLM4; +FLUMAZENIL 0.1 MG/1 ML 10 ML VIAL IV PRN; +LABETALOL HCL IV 5 MG/ML 20ML IV PRN; +LACTATED RINGER'S 1000ML 1,000 ML IV SCH; +LIDOCAINE HCL 2% 2 ML VIAL (20MG/ML) ONE; +MIDAZOLAM HCL 1 MG/ML 2ML VIAL ONE; +NALOXONE HCL 0.4 MG/1 ML VIAL/CARP IV PRN; -ONDA4TAB10 SL; +ONDANSETRON INJ 2 MG/ML 2 ML VIAL IV PRN; +ONDANSETRON INJ 2 MG/ML 2 ML VIAL ONE; -OXYC1TAB3 PO; +OXYCODONE/ACETAMINOPHEN 5-325 TAB PO PRN; +PROMETHAZINE HCL INJ 12.5 MG in SODIUM CHLORIDE 0.9% 50ML 50 ML IV PRN; +PROPOFOL IV EMULSION 10 MG/ML 20 ML VIAL IV ONE
--- NOTE | 2017-07-10 08:02 | Discharge Instructions ---
Discharge Instructions Date of Service Jul 10, 2017. Admission Reason for Admission: Stones Discharge Discharge Diagnosis / Problem: Left renal stone s/p ESWL Discharge Goals Goal(s): Decrease discomfort, Improve disease control, Therapeutic intervention Activity Recommendations Activity Limitations: as noted below Lifting Limitations: no more than 25 pounds, gradually increase as tolerated Exercise/Sports Limitations: rest today, gradually increase as tolerated May Resume Sexual Activity: when tolerated Shower/Bathe: no limitations Driving or Machine Use: resume 1 day after discharge . Instructions / Follow-Up Instructions / Follow-Up In office as planned with KUB Xray before visit Discharge Diet Recommended Diet: Regular Diet (good fluid intake) Procedures Procedures Performed: Left Extracorporeal Shock Wave Lithotripsy - Renal Pending Studies Studies pending at discharge: no Medical Emergencies . Who to Call and When: Medical Emergencies: If at any time you feel your situation is an emergency, please call 911 immediately. . Non-Emergent Contact Non-Emergency issues call your: Urologist Call Non-Emergent contact if: you have a fever, temperature is above 101, your pain is not controlled, your pain is worsening, your pain is unusual for you, your pain is concerning you, you have any medication questions . . "Provider Documentation" section prepared by Jose Pradhan. . VTE Core Measure Inpt VTE Proph given/why not?: [facility]CD[place] Drug Monitoring Program Search Results: patient reviewed within database, see additional documentation (last Rx a month ago, new Rx provided for stone)
--- NOTE | 2017-07-10 08:08 | [facility] Post Operative Brief Note ---
Immediate Operative Summary Operative Date Jul 10, 2017. Pre-Operative Diagnosis Left Renal Calculi Post-Operative Diagnosis Same as pre-op Procedure(s) Performed Left Extracorporeal Shock Wave Lithotripsy - Renal Surgeon Dr. [place] Pradhan Certified Surgical First Assistant Surgeon(s) None Estimated Blood Loss 0 mL Findings Excellent stone fragmentation Specimens None Drains NA Anesthesia [facility] Complication(s) None Disposition Recovery Room / PACU
--- NOTE | 2017-07-10 08:39 | OPERATIVE REPORT ---
DATE OF OPERATION: 07/10/2017 PREOPERATIVE DIAGNOSIS: Left renal stone. POSTOPERATIVE DIAGNOSIS: Same. PROCEDURE: Left-sided renal extracorporeal shockwave lithotripsy. SURGEON: Dr. Jose Pradhan. POULTRY PROCESSOR: None. ANESTHESIA: General anesthesia with laryngeal mask. COMPLICATIONS: None. FINDINGS: Excellent stone fragmentation on fluoroscopy. ESTIMATED BLOOD LOSS: None. DETAILS OF PROCEDURE: The patient was brought to the litho suite. He was correctly identified and the stone was visualized on his most recent x-rays. After the correct time out was performed the patient was positioned over the therapy head. An adequate level of anesthesia was administered. The extracorporeal shockwave lithotripsy treatment was then commenced. Please see the [place] [facility] Stone Management sheet for complete treatment summary. After completion of the procedure the patient was taken to the recovery room in stable condition. I attest to the content of the Intraoperative Record and any orders documented therein. Any exception s are noted below.
[2017-07-10 09:32] VITALS: TEMP 36.3
--- NOTE | 2017-07-10 09:47 | Anesthesia Progress Nt - [facility] ---
Anesthesia Post Op Note Date & Time Jul 10, 2017 at 09:47 Vital Signs Pain Intensity: 1.0 Vital Signs Past 12 Hours Date Time Temp Pulse Resp B/P (MAP) Pulse Ox O2 Delivery O2 Flow Rate FiO2 07/10/17 09:32 36.3 74 16 118/83 (95) 95 Room Air 07/10/17 09:21 36.6 07/10/17 09:16 59 13 07/10/17 09:16 59 13 129/90 (99) 94 07/10/17 09:11 68 23 07/10/17 09:11 71 23 123/83 (97) 96 07/10/17 09:06 68 17 112/83 (93) 95 07/10/17 09:06 66 17 07/10/17 09:01 55 13 128/92 (106) 100 07/10/17 09:01 56 13 07/10/17 08:56 59 15 07/10/17 08:56 59 15 131/87 (101) 100 07/10/17 08:51 63 16 124/83 (93) 100 07/10/17 08:51 62 16 07/10/17 08:46 62 16 07/10/17 08:46 63 16 126/80 (84) 99 07/10/17 08:41 69 17 119/89 (99) 99 07/10/17 08:41 68 17 07/10/17 08:36 72 16 07/10/17 08:36 71 16 124/75 (85) 99 07/10/17 08:31 68 18 116/86 (91) 97 07/10/17 08:31 70 18 07/10/17 08:26 69 19 07/10/17 08:26 69 19 125/83 (98) 99 07/10/17 08:23 122/86 (102) 07/10/17 08:20 36.1 98 20 122/86 98 Diffusion Mask 5 07/10/17 06:28 37 86 16 123/85 (98) 95 Room Air Notes Mental Status: alert / awake / arousable, participated in evaluation Pt Amnestic to Procedure: Yes Nausea / Vomiting: adequately controlled Pain: adequately controlled Airway Patency, RR, SpO2: stable & adequate BP & HR: stable & adequate Hydration State: stable & adequate Anesthetic Complications: no major complications apparent
[2017-07-10 09:58] VITALS: BP 117/83; PULSE 70; O2SAT 96
== END | disposition home or self-care (01) ==
LOC: X.SURG 06:06
PROVIDERS: ATTEND Urology
DX: N20.0 Calculus of kidney (principal); F17.200 Nicotine dependence, unspecified, uncomplicated

== ENCOUNTER 2017-07-11 23:37 | Observation (INO) | payer BC ==
[~2017-07-11] VITALS: Ht 175.3 cm; Wt 113.6 kg
[~2017-07-11 23:37] MED LIST changes: -ATROPINE SULFATE 0.1 MG/ML 5ML SYR IV PRN; -CIPROFLOXACIN 400MG / D5W IV SCH; -DEXAMETHASONE SOD INJ 4 MG/ML VIAL ONE; -EpHEDrine SULFATE INJ 50 MG/ML AMP IV PRN; -FENTANYL CITRATE INJ 50 MCG/1 ML 2 ML VIAL IV PRN; -FENTANYL CITRATE INJ 50 MCG/1 ML 2 ML VIAL ONE; -FLM4 PO; -FLUMAZENIL 0.1 MG/1 ML 10 ML VIAL IV PRN; -LABETALOL HCL IV 5 MG/ML 20ML IV PRN; -LACTATED RINGER'S 1000ML 1,000 ML IV SCH; -LIDOCAINE HCL 2% 2 ML VIAL (20MG/ML) ONE; -MIDAZOLAM HCL 1 MG/ML 2ML VIAL ONE; -NALOXONE HCL 0.4 MG/1 ML VIAL/CARP IV PRN; -ONDANSETRON INJ 2 MG/ML 2 ML VIAL IV PRN; -ONDANSETRON INJ 2 MG/ML 2 ML VIAL ONE; -OXYB5TAB PO; -OXYCODONE/ACETAMINOPHEN 5-325 TAB PO PRN; -PROMETHAZINE HCL INJ 12.5 MG in SODIUM CHLORIDE 0.9% 50ML 50 ML IV PRN; -PROPOFOL IV EMULSION 10 MG/ML 20 ML VIAL IV ONE
[2017-07-11] MEDS ORDERED: HYDROmorphone INJ 1 MG/ML SYR IV STA (23:53)
[2017-07-11] MEDS ORDERED: SODIUM CHLORIDE 0.9% 1000ML 1,000 ML IV STA (23:53)
[2017-07-11] MEDS ORDERED: ONDANSETRON INJ 2 MG/ML 2 ML VIAL IV STA (23:53)
--- NOTE | 2017-07-12 | EMERGENCY ROOM VISIT NOTE ---
History First contact with patient: 23:48 Chief Complaint: KIDNEY STONE Stated Complaint: KIDNEY STONE PAIN History of Present Illness The patient is a 26 year old male who presents to the Emergency Room with complaints of left flank pain. The patient has a history of kidney stone. He had lithotripsy yesterday. He states he did not have much pain yesterday but now has significant 10/10 pain. The pain is in the left flank and radiates to the abdomen. He took 2 Percocet around 10 PM and the pain has not improved. The patient reports associated nausea. He denies any fevers. He denies any falls or injuries. He sees Dr. Pradhan of urology. Review of Systems A 10 system review of systems was completed with positives and pertinent negatives listed in the HPI. Past Medical/Surgical History Medical Problems: (1) No significant medical problems Surgical Problems: (1) No significant past surgical history Social History Smoking Status: Never Smoker Alcohol Use: occasionally Marital Status: single Occupation Status: employed Current/Historical Medications Scheduled Eszopiclone (Lunesta), 3 MG PO QPM Lamotrigine (Lamotrigine), 100 MG PO HS Sertraline Hcl (Zoloft), 100 MG PO QAM Scheduled PRN Alum & Mag Hydrox-Simethicone (Mylanta), 1 DOSE PO DAILY PRN for Indigestion Amphetamine-Dextroamphetamine 30MG (Adderall 30MG), 30 MG PO DAILY PRN for INABILITY TO CONCENTRATE Oxycodone/Acetaminophen 7.5MG/325MG (Percocet 7.5MG/325MG), 1 TAB PO Q4 PRN for Pain Ranitidine (Zantac), 150 MG PO DAILY PRN for HEARTBURN Physical Exam Vital Signs Date Time Temp Pulse Resp B/P (MAP) Pulse Ox O2 Delivery O2 Flow Rate FiO2 07/12/17 01:08 78 22 150/110 99 Room Air 07/11/17 23:41 36.6 70 19 152/102 99 Room Air Physical Exam VITALS: Vitals are noted on the nurse's note and reviewed by myself. Vital signs stable. The patient is afebrile. GENERAL: This is a 26-year-old male who appears to be uncomfortable from the pain, in no acute distress, nondiaphoretic, well-developed well-nourished. SKIN: The skin was without rashes, erythema, edema, or bruising. There is no tenting of the skin. Capillary reflex less than 2 seconds. HEAD: Normocephalic atraumatic. EARS: The external ears are normal in appearance. EYES: Pupils equal round and reactive to light and accommodation. Conjunctivae without injection, sclerae without icterus. Extraocular movements intact. NOSE: Patent, turbinates without inflammation or discharge. MOUTH: Mucous membranes moist. Tonsils are not enlarged. Pharynx without erythema or exudate. Uvula midline. Airway patent. Tongue does not deviate. NECK: Supple without nuchal rigidity. No lymphadenopathy. No thyromegaly. Cervical spine is nontender. No JVD. HEART: Regular rate and rhythm without murmurs gallops or rubs. LUNGS: Clear to auscultation bilaterally without wheezes, rales or rhonchi. No retractions or accessory muscle use. ABDOMEN: Positive bowel sounds x 4. Soft, nontender, without masses or organomegaly. MUSCULOSKELETAL: No muscle atrophy, erythema, or edema noted. Full range of motion in all extremities. Strength 5/5 throughout. NEURO: Patient was alert and oriented to person place and time. No focal neurological deficits. Medical Decision & Procedures ER Provider Diagnostic Interpretation: KUB was reviewed by myself and Dr. costello. The image seemed similar compared to the most recent KUB Laboratory Results 07/11/17 23:50 Red Blood Count 4.93, Mean Corpuscular Volume 87.8, Mean Corpuscular Hemoglobin 30.4, Mean Corpuscular Hemoglobin Concent 34.6, Mean Platelet Volume 9.6, Neutrophils (%) (Auto) 64.6, Lymphocytes (%) (Auto) 26.2, Monocytes (%) (Auto) 7.6, Eosinophils (%) (Auto) 1.1, Basophils (%) (Auto) 0.3, Neutrophils # (Auto) 9.82, Lymphocytes # (Auto) 3.99, Monocytes # (Auto) 1.16, Eosinophils # (Auto) 0.17, Basophils # (Auto) 0.04 07/11/17 23:50 Test 07/11/17 23:50 White Blood Count 15.21 K/uL (4.8-10.8) Red Blood Count 4.93 M/uL (4.7-6.1) Hemoglobin 15.0 g/dL (14.0-18.0) Hematocrit 43.3 % (42-52) Mean Corpuscular Volume 87.8 fL (80-100) Mean Corpuscular Hemoglobin 30.4 pg (25-34) Mean Corpuscular Hemoglobin Concent 34.6 g/dl (32-36) Platelet Count 190 K/uL (130-400) Mean Platelet Volume 9.6 fL (7.4-10.4) Neutrophils (%) (Auto) 64.6 % Lymphocytes (%) (Auto) 26.2 % Monocytes (%) (Auto) 7.6 % Eosinophils (%) (Auto) 1.1 % Basophils (%) (Auto) 0.3 % Neutrophils # (Auto) 9.82 K/uL (1.4-6.5) Lymphocytes # (Auto) 3.99 K/uL (1.2-3.4) Monocytes # (Auto) 1.16 K/uL (0.11-0.59) Eosinophils # (Auto) 0.17 K/uL (0-0.5) Basophils # (Auto) 0.04 K/uL (0-0.2) RDW Standard Deviation 40.3 fL (36.4-46.3) RDW Coefficient of Variation 12.6 % (11.5-14.5) Immature Granulocyte % (Auto) 0.2 % Immature Granulocyte # (Auto) 0.03 K/uL (0.00-0.02) Urine Color YELLOW Urine Appearance CLOUDY (CLEAR) Urine pH 5.0 (4.5-7.5) Urine Specific [place] 1.033 (1.000-1.030) Urine Protein TRACE (NEG) Urine Glucose (UA) NEG (NEG) Urine Ketones NEG (NEG) Urine Occult Blood 3+ (NEG) Urine Nitrite NEG (NEG) Urine Bilirubin NEG (NEG) Urine Urobilinogen NEG (NEG) Urine Leukocyte Esterase NEG (NEG) Urine WBC (Auto) 1-5 /hpf (0-5) Urine RBC (Auto) >30 /hpf (0-4) Urine Hyaline Casts (Auto) 1-5 /lpf (0-5) Urine Epithelial Cells (Auto) 0-5 /lpf (0-5) Urine Bacteria (Auto) NEG (NEG) Anion Gap 8.0 mmol/L (3-11) Est Creatinine Clear Calc Drug Dose 114.9 ml/min Estimated GFR () 95.5 Estimated GFR (Non- 82.4 BUN/Creatinine Ratio 11.5 (10-20) Calcium Level 8.5 mg/dl (8.5-10.1) Total Bilirubin 0.3 mg/dl (0.2-1) Aspartate Amino Transf (AST/SGOT) 13 U/L (15-37) Alanine Aminotransferase (ALT/SGPT) 37 U/L (12-78) Alkaline Phosphatase 75 U/L (45-117) Total Protein 7.2 gm/dl (6.4-8.2) Albumin 3.9 gm/dl (3.4-5.0) Globulin 3.3 gm/dl (2.5-4.0) Albumin/Globulin Ratio 1.2 (0.9-2) Medications Administered Medications (Trade) Dose Ordered Sig/Brain Route Start Time Stop Time Status Last Admin Dose Admin Sodium Chloride 1,000 ml @ 999 mls/hr Q1H1M STAT IV 07/11/17 23:53 07/12/17 00:53 DC 07/11/17 23:59 999 MLS/HR Ondansetron HCl (Zofran Inj) 4 mg NOW STAT IV 07/11/17 23:53 07/11/17 23:55 DC 07/11/17 23:58 4 MG Hydromorphone HCl (Dilaudid Inj) 1 mg NOW STAT IV 07/11/17 23:53 07/11/17 23:55 DC 07/11/17 23:58 1 MG Hydromorphone HCl (Dilaudid Inj) 1 mg NOW STAT IV 07/12/17 00:57 07/12/17 00:58 DC 07/12/17 01:05 1 MG Ondansetron HCl (Zofran Inj) 4 mg NOW STAT IV 07/12/17 00:57 07/12/17 00:58 DC 07/12/17 01:05 4 MG Ondansetron HCl (Zofran Inj) 4 mg NOW STAT IV 07/12/17 01:56 07/12/17 01:57 DC 07/12/17 02:01 4 MG ED Course The patient was seen and examined. Previous visits were reviewed. The patient does not have a fever. He does have a leukocytosis of 15.21 which may be reactive. He does not have any significant electrolyte abnormality. Urinalysis reveals hematuria. KUB does not appear to be significantly changed compared to previous. I cannot definitively identify a stone. The patient was hydrated with normal saline solution The patient Percocet prior to arrival He was given 1 mg IV Dilaudid and only had mild improvement in his pain He was given 1 mg IV Dilaudid with improvement in his pain He was given a total of 3 doses of 4 mg IV Zofran The patient has a long-standing history of kidney stones. He had lithotripsy performed yesterday. The patient presents today with intractable flank pain. The patient has already been trying Percocet at home with no relief. He would benefit from further evaluation and management in the hospital. The patient will be evaluated by the [facility] physician group pop as the last hospitalist. The case was discussed with Dr. costello who agrees with the assessment and treatment plan Medical Decision DIFFERENTIAL DIAGNOSIS: Hepatitis, cholecystitis, cholangitis, biliary colic, pancreatitis, pneumonia, subdiaphragmatic abscess, appendicitis, inguinal hernia , nephrolithiasis, inflammatory bowel disease, mesenteric adenitis, peptic ulcer disease, GERD, gastritis, pancreatitis, myocardial infarction, pericarditis, ruptured aortic aneurysm, appendicitis, gastroenteritis, bowel obstruction, splenic infarct, diverticulitis, mesenteric ischemia, metabolic, peritonitis, among others. Blood Pressure Screening Patient's blood pressure: Elevated blood pressure Blood pressure disposition: Elevated BP felt to be situational Impression Primary Impression: Right ureteral calculus Departure Information Dispostion Admitted as an inpatient Referrals Rick Trejo M.D. (PCP) Patient Instructions [facility]
[2017-07-12 00:14] LABS: BASO % 0.3 %; BASO ABS # 0.04 K/uL (0-0.2); COMPLETE YES; EOS % 1.1 %; HEMATOCRIT 43.3 % (42-52); IG% 0.2 %; LYMPH % 26.2 %; LYMPH ABS # 3.99 K/uL (1.2-3.4); MEAN CELL VOLUME 87.8 fL (80-100); MEAN CORPUSCULAR HEMOGLOBIN 30.4 pg (25-34); MEAN CORPUSCULAR HGB CONC 34.6 g/dl (32-36); MEAN PLATELET VOLUME 9.6 fL (7.4-10.4); MONO % 7.6 %; NEUT % 64.6 %; PLATELET COUNT 190 K/uL (130-400); RED BLOOD COUNT 4.93 M/uL (4.7-6.1); WHITE BLOOD COUNT 15.21 K/uL (4.8-10.8)
[2017-07-12 00:24] LABS: URINE APPEARANCE CLOUDY (CLEAR); URINE BILIRUBIN NEG (NEG); URINE COLOR YELLOW; URINE EPITHELIAL CELL AUTO 0-5 /lpf (0-5); URINE NITRITE NEG (NEG); URINE SPECIFIC GRAVITY 1.033 (1.000-1.030); UROBILINOGEN NEG (NEG); ZZUR CULT IF INDIC CLEAN CATCH NO
[2017-07-12 00:25] LABS: BUN/CREATININE RATIO 11.5 (10-20); CALCIUM 8.5 mg/dl (8.5-10.1); CREATININE 1.2 mg/dl (0.60-1.40); POTASSIUM 3.8 mmol/L (3.5-5.1)
[2017-07-12 00:28] LABS: ALB/GLOB RATIO 1.2 (0.9-2)
[2017-07-12 00:30] LABS: MANUAL MICROSCOPIC REQUIRED? NO; REVIEW REQ? NO
[2017-07-12] MEDS ORDERED: HYDROmorphone INJ 1 MG/ML SYR IV STA (00:57)
[2017-07-12] MEDS ORDERED: ONDANSETRON INJ 2 MG/ML 2 ML VIAL IV STA ×2 (00:57→01:56)
[2017-07-12] MEDS ORDERED: ONDANSETRON INJ 2 MG/ML 2 ML VIAL IV PRN (02:30)
[2017-07-12] MEDS ORDERED: ACETAMINOPHEN 325 MG TAB PO PRN (02:30)
[2017-07-12] MEDS ORDERED: IV FLUIDS COMPLETED PRN (02:45)
[2017-07-12 02:50] VITALS: BP 155/108; PULSE 65; TEMP 36.9; O2SAT 97; Ht 175.3 cm; Wt 113.6 kg
[2017-07-12] MEDS: FAMOTIDINE IV INJ 20 MG in DEXTROSE 5% 100ML 100 ML IV SCH ×2 (03:14→14:24)
[2017-07-12] MEDS: OXYCODONE/ACETAMINOPHEN 7.5-325 TAB PO PRN ×4 (03:15→20:23)
--- NOTE | 2017-07-12 03:15 | History and Physical ---
History & Physical Date & Time of Service: Jul 12, 2017 at 03:08 Chief Complaint: Abdominal Pain, Right Ureteral Calculus Primary Care Physician: Rick Trejo M.D. History of Present Illness Source: patient, spouse, hospital records The patient is a 26-year-old male who underwent lithotripsy on July 10 for right ureteral stone by Dr. Jose Pradhan. He reports he was doing well until earlier this evening, when he developed severe left flank pain and presents emergency department for assessment. A KUB at been performed by the ED which was nonrevealing, but I ordered CT of the abdomen and pelvis without contrast, which showed a 2 and a 3 mm distal left ureteral stone stones, with mild left hydroureteronephrosis. The previous right distal ureteral stone and right hydroureteronephrosis was resolved compared to the CT of 06/19/2017. Past Medical/Surgical History Medical Problems: (1) No significant medical problems Status: Chronic Surgical Problems: (1) No significant past surgical history Status: Chronic Family History Noncontributory Social History Smoking Status: Never Smoker Smokeless Tobacco Use: No Alcohol Use: none Drug Use: none Marital Status: single Occupational Status: employed Immunizations History of Influenza Vaccine: Unknown History of Tetanus Vaccine?: Unknown History of Pneumococcal: No History of Hepatitis B Vaccine: Unknown Multi-Drug Resistant Organisms History of MDRO: No Allergies Coded Allergies: Morphine (Verified Adverse Reaction, Unknown, N/V, 07/12/17) Home Medications Scheduled Eszopiclone (Lunesta), 3 MG PO QPM Lamotrigine (Lamotrigine), 100 MG PO HS Sertraline Hcl (Zoloft), 100 MG PO QAM Scheduled PRN Alum & Mag Hydrox-Simethicone (Mylanta), 1 DOSE PO DAILY PRN for Indigestion Amphetamine-Dextroamphetamine 30MG (Adderall 30MG), 30 MG PO DAILY PRN for INABILITY TO CONCENTRATE Oxycodone/Acetaminophen 7.5MG/325MG (Percocet 7.5MG/325MG), 1 TAB PO Q4 PRN for Pain Ranitidine (Zantac), 150 MG PO DAILY PRN for HEARTBURN Review of Systems The patient denies chest pain, palpitations, shortness of breath, cough, lower extremity swelling, vision change, hearing change, sore throat, fevers, chills, sweats, weight change, fatigue, diarrhea or constipation, abdominal pain, pelvic pain, blood in urine or stool, dysuria, urinary frequency or urgency, lightheadedness, dizziness, headache, memory loss, rash, abnormal bruising or bleeding, imbalance, focal or generalized weakness, numbness or tingling in arms or legs, generalized arthralgias or myalgias, back or neck pain, night sweats, or allergy symptoms. The review of systems is otherwise negative other than for that already noted above, and at least 10 systems have been reviewed. Physical Exam Vital Signs Date Time Temp Pulse Resp B/P (MAP) Pulse Ox O2 Delivery O2 Flow Rate FiO2 07/12/17 02:41 82 18 151/97 96 07/12/17 01:08 78 22 150/110 99 Room Air 07/11/17 23:41 36.6 70 19 152/102 99 Room Air The patient is awake, well-developed and adequately nourished, alert and oriented 3, normocephalic and atraumatic, lying in bed and in mild to moderate distress secondary to pain. HEENT--PERRL, EOMI, mucous membranes and oropharynx dry. Neck--supple, no JVD or bruits, thyroid normal, trachea midline, no adenopathy. Heart--normal S1 and S2, no extra beats, no murmurs, rubs or gallops. Lungs--clear bilaterally with good air movement, no respiratory distress, no accessory muscle use. Abdomen--normal bowel sounds and soft. Tender left flank. Abdomen is nondistended. Extremities--no cyanosis, clubbing or edema. There are good distal pulses b/l. Dermatologic--normal skin turgor, normal color, warm and dry, no abnormal lymph nodes, no rash. Neurologic--cranial nerves II through XII grossly intact, motor and sensory examination normal. Rheumatologic--normal range of motion, nontender, muscles and joints. Psychiatric--normal affect. Diagnostics Laboratory Results Results Past 24 Hours Test 07/11/17 23:50 Range/Units White Blood Count 15.21 4.8-10.8 K/uL Red Blood Count 4.93 4.7-6.1 M/uL Hemoglobin 15.0 14.0-18.0 g/dL Hematocrit 43.3 42-52 % Mean Corpuscular Volume 87.8 80-100 fL Mean Corpuscular Hemoglobin 30.4 25-34 pg Mean Corpuscular Hemoglobin Concent 34.6 32-36 g/dl Platelet Count 190 130-400 K/uL Mean Platelet Volume 9.6 7.4-10.4 fL Neutrophils (%) (Auto) 64.6 % Lymphocytes (%) (Auto) 26.2 % Monocytes (%) (Auto) 7.6 % Eosinophils (%) (Auto) 1.1 % Basophils (%) (Auto) 0.3 % Neutrophils # (Auto) 9.82 1.4-6.5 K/uL Lymphocytes # (Auto) 3.99 1.2-3.4 K/uL Monocytes # (Auto) 1.16 0.11-0.59 K/uL Eosinophils # (Auto) 0.17 0-0.5 K/uL Basophils # (Auto) 0.04 0-0.2 K/uL RDW Standard Deviation 40.3 36.4-46.3 fL RDW Coefficient of Variation 12.6 11.5-14.5 % Immature Granulocyte % (Auto) 0.2 % Immature Granulocyte # (Auto) 0.03 0.00-0.02 K/uL Urine Color YELLOW Urine Appearance CLOUDY CLEAR Urine pH 5.0 4.5-7.5 Urine Specific [place] 1.033 1.000-1.030 Urine Protein TRACE NEG Urine Glucose (UA) NEG NEG Urine Ketones NEG NEG Urine Occult Blood 3+ NEG Urine Nitrite NEG NEG Urine Bilirubin NEG NEG Urine Urobilinogen NEG NEG Urine Leukocyte Esterase NEG NEG Urine WBC (Auto) 1-5 0-5 /hpf Urine RBC (Auto) >30 0-4 /hpf Urine Hyaline Casts (Auto) 1-5 0-5 /lpf Urine Epithelial Cells (Auto) 0-5 0-5 /lpf Urine Bacteria (Auto) NEG NEG Sodium Level 141 136-145 mmol/L Potassium Level 3.8 3.5-5.1 mmol/L Chloride Level 105 98-107 mmol/L Carbon Dioxide Level 28 21-32 mmol/L Anion Gap 8.0 3-11 mmol/L Blood Urea Nitrogen 14 7-18 mg/dl Creatinine 1.20 0.60-1.40 mg/dl Est Creatinine Clear Calc Drug Dose 114.9 ml/min Estimated GFR () 95.5 Estimated GFR (Non- 82.4 BUN/Creatinine Ratio 11.5 10-20 Random Glucose 117 70-99 mg/dl Calcium Level 8.5 8.5-10.1 mg/dl Total Bilirubin 0.3 0.2-1 mg/dl Aspartate Amino Transf (AST/SGOT) 13 15-37 U/L Alanine Aminotransferase (ALT/SGPT) 37 12-78 U/L Alkaline Phosphatase 75 45-117 U/L Total Protein 7.2 6.4-8.2 gm/dl Albumin 3.9 3.4-5.0 gm/dl Globulin 3.3 2.5-4.0 gm/dl Albumin/Globulin Ratio 1.2 0.9-2 Impression Assessment and Plan Result right distal ureteral stone and right hydroureteronephrosis status post lithotripsy on July 10 new distal left ureteral stones, 2 and 3 mm respectively in size, with mild left hydroureteronephrosis-- Patient will be admitted to the medical surgical floor. Nothing by mouth status except medications. Normal saline at 100 mils per hour. Ceftriaxone 1 g IV daily. Dilaudid 1 mg IV every 2 hours when necessary. Zofran 4 mg IV every 6 hours when necessary. Consult Dr. Jose Pradhan from urology. Depression/insomnia-- Continue Lunesta 3 mg by mouth daily at bedtime, lamotrigine 100 mg by mouth daily at bedtime, and sertraline 100 mg by mouth every morning. Level of Care Med/Surg Advanced Directives Existing Advance Directive: No Existing Living Will: No Existing Power of Service Delivery Analyst: No Resuscitation Status FULL RESUSCITATION VTE Prophylaxis VTE Risk Assessment Done? Y/N: Yes Risk Level: Low Given or contraindicated: SCD's Social Service Consult None Apply
[2017-07-12] MEDS: SODIUM CHLORIDE 0.9% 1000ML 1,000 ML IV SCH ×3 (04:03→23:26)
[2017-07-12] MEDS: CEFTRIAXONE SOD INJ 1 GM in DEXTROSE 5% ADD-VANTAGE 50ML 50 ML IV SCH (04:04)
[2017-07-12] MEDS: HYDROmorphone INJ 1 MG/ML SYR IV PRN ×2 (04:39→12:32)
--- NOTE | 2017-07-12 06:15 | DIAGNOSTIC IMAGING REPORT ---
KUB CLINICAL HISTORY: left flank pain, lithotripsy yesterday COMPARISON STUDY: 07/09/2017 FINDINGS: Bowel pattern obscures the kidneys to significant degree. No well-defined calcification. Nonobstructive bowel pattern. IMPRESSION: Nonobstructive bowel pattern. Poor visibility of the kidneys. The above report was generated using voice recognition software. It may contain grammatical, syntax or spelling errors. Electronically signed by: Felix Barcenas M.D. 07/12/2017 6:13 AM Dictated Date/Time: 07/12/2017 6:12 AM
--- NOTE | 2017-07-12 06:29 | DIAGNOSTIC IMAGING REPORT ---
ABD/PELVIS WITHOUT FOR STONE CT DOSE: 1608.09 mGy.cm HISTORY: Flank pain right ureteral stone TECHNIQUE: Multiaxial CT images of the abdomen and pelvis were performed without the use of intravenous and oral contrast according to the standard department stone protocol. A dose lowering technique was utilized adhering to the principles of ALARA. COMPARISON STUDY: 06/19/2017 FINDINGS: lung bases are clear. Liver spleen and pancreas are unremarkable. Right-sided hydroureteronephrosis has resolved. The right renal calcifications appear to have passed. Left kidney demonstrates 2 small 2.5 mm calcifications distal left ureter at and are slightly proximal to the left ureterovesical junction. There is mild left hydroureteronephrosis. Bowel pattern is nonobstructive. There is a 4 mm nonobstructing calcification lower aspect left kidney. There is trace amount of perinephric fluid. Several additional punctate nonobstructing left renal calcifications are present. IMPRESSION: 1. Obstructing calcifications distal left ureter slightly proximal to the left ureterovesical junction. 2. Interval passage of the right renal calcifications. 3. Mild left hydroureteronephrosis. 4. Several additional nonobstructing left renal calcifications. The above report was generated using voice recognition software. It may contain grammatical, syntax or spelling errors. Electronically signed by: Felix Barcenas M.D. 07/12/2017 6:28 AM Dictated Date/Time: 07/12/2017 6:25 AM
[2017-07-12 07:21] VITALS: BP 105/68; PULSE 76; TEMP 37; O2SAT 92
[2017-07-12] MEDS ORDERED: SERTRALINE HCL 100 MG TAB PO SCH (09:00)
[2017-07-12 09:33] LABS: BASO % 0.1 %; BASO ABS # 0.01 K/uL (0-0.2); COMPLETE YES; EOS % 0.2 %; HEMATOCRIT 40.4 % (42-52); IG% 0.2 %; LYMPH % 14.2 %; LYMPH ABS # 1.78 K/uL (1.2-3.4); MEAN CELL VOLUME 87.4 fL (80-100); MEAN CORPUSCULAR HEMOGLOBIN 30.7 pg (25-34); MEAN CORPUSCULAR HGB CONC 35.1 g/dl (32-36); MEAN PLATELET VOLUME 9.6 fL (7.4-10.4); MONO % 11.3 %; PLATELET COUNT 170 K/uL (130-400); RED BLOOD COUNT 4.62 M/uL (4.7-6.1); WHITE BLOOD COUNT 12.53 K/uL (4.8-10.8)
--- NOTE | 2017-07-12 12:00 | Urology Consultation ---
History General Date of Service: Jul 12, 2017. Chief Complaint: Left Flank pain. Stone Primary Care Physician: Rick Trejo M.D. Pt seen a urologist before?: Yes If yes, why?: Stone. ESWL and Lithotripsy History of Present Illness Patient had sudden onset of severe left pain to groin severe in waves sharp and no position of comfort. Previous stone. Had ESWL left for large stone and URS right for obstructing right stone. Now 2 small 2mm stones on left at UVJ region. Hydrating. Tolerating pain. Nausea. HPI - Stones Location: left, ureter, UVJ Laboratory Labs were reviewed and are within normal limits unless listed below. Labs are available in the chart and at [facility] Problem List Medical Problems: (1) Kidney stone Status: Acute (2) Right ureteral calculus Status: Acute Family History Stones Social History Hx Tobacco Use In Past Year?: Yes (SNUFF 1 CAN PER 3 DAYS) Marital status: single Occupation status: employed Immunizations History of Influenza Vaccine: Unknown History of Tetanus Vaccine?: Unknown History of Pneumococcal: No History of Hepatitis B Vaccine: Unknown History of MDRO No Allergies Coded Allergies: Morphine (Verified Adverse Reaction, Unknown, N/V, 07/12/17) Medications Home Medications: Home Meds and Scripts Medications Dose Route/Sig Max Daily Dose Days Date Category Percocet 7.5MG/325MG (Oxycodone/Acetaminophen) Tab 1 Tab PO Q4 PRN 07/10/17 Rx Mylanta (Alum & Mag Hydrox-Simethicone) 1 Michelle Michelle 1 Dose PO DAILY PRN 07/07/17 Reported Zantac (Ranitidine HCl) 150 Mg Tab 150 Mg PO DAILY PRN 06/16/17 Reported Zoloft (Sertraline Hcl) 100 Mg Tab 100 Mg PO QAM 06/16/17 Reported Adderall 30MG (Amphetamine-Dextroamphetamine 30MG) 1 Tab Tab 30 Mg PO DAILY PRN 11/01/14 Reported Lamotrigine 100 Mg Tab 100 Mg PO HS 11/01/14 Reported Lunesta (Eszopiclone) 3 Mg Tab 3 Mg PO QPM 11/01/14 Reported Inpatient Medications: Current Inpatient Medications Medications (Trade) Dose Ordered Sig/Brain Route Start Time Stop Time Status Last Admin Dose Admin Acetaminophen (Tylenol Tab) 650 mg Q4H PRN PO 07/12/17 02:30 08/11/17 02:29 Eszopiclone (Lunesta Tab) 3 mg QPM PO 07/12/17 21:00 08/11/17 20:59 Lamotrigine (Lamictal Tab) 100 mg HS PO 07/12/17 21:00 08/11/17 20:59 Oxycodone/ Acetaminophen (Percocet 7.5-325MG Tab) 1 tab Q4 PRN PO 07/12/17 02:30 07/26/17 02:29 07/12/17 08:38 1 TAB Sertraline HCl (Zoloft Tab) 100 mg QAM PO 07/12/17 09:00 08/11/17 08:59 07/12/17 08:35 100 MG Famotidine 20 mg/ Dextrose 102 ml @ 200 mls/hr Q12H IV 07/12/17 03:00 08/11/17 02:59 07/12/17 03:14 200 MLS/HR Ondansetron HCl (Zofran Inj) 4 mg Q6H PRN IV 07/12/17 02:30 08/11/17 02:29 Hydromorphone HCl (Dilaudid Inj) 1 mg Q2H PRN IV 07/12/17 02:30 07/26/17 02:29 07/12/17 04:39 1 MG Ceftriaxone Sodium 1 gm/ Dextrose 50 ml @ 100 mls/hr Q24H IV 07/12/17 04:00 07/22/17 03:59 07/12/17 04:04 100 MLS/HR Miscellaneous (Iv Fluids Completed) 1 ea PRN PRN N/A 07/12/17 02:45 07/12/18 02:44 Sodium Chloride 1,000 ml @ 100 mls/hr Q10H IV 07/12/17 03:30 08/11/17 03:29 07/12/17 04:03 100 MLS/HR Review of Systems Review of Systems All Other Systems: Reviewed and Negative (See HPI for pert pos and negatives) Physical Exam Vital Signs: Vital Signs Past 12 Hours Date Time Temp Pulse Resp B/P (MAP) Pulse Ox O2 Delivery O2 Flow Rate FiO2 07/12/17 07:21 37.0 76 18 105/68 (80) 92 Room Air 07/12/17 07:20 Room Air 07/12/17 02:50 Room Air 07/12/17 02:50 36.9 65 16 155/108 97 Room Air 07/12/17 02:41 82 18 151/97 96 07/12/17 01:08 78 22 150/110 99 Room Air Physical Exam: General Appearance: WD/WN, no apparent distress Eyes: bilateral eyes normal inspection, bilateral eyes PERRL, bilateral eyes EOMI ENT: normal ENT inspection, hearing grossly normal, TMs normal, pharynx normal Neck: supple, no adenopathy, thyroid normal, no JVD Respiratory/Chest: chest non-tender, lungs clear, normal breath sounds, no respiratory distress, no accessory muscle use Cardiovascular: regular rate, rhythm, no edema, no gallop, no JVD, no murmur Gastrointestinal: Abdomen: normal abdomen, LLQ tenderness Incision: normal incision Bladder: normal bladder Renal: cva tenderness Hernia: absent hernia Liver: normal liver Spleen: normal spleen Genitourinary - Male: Penis: normal penis Urethral Meatus: normal urethral meatus Testes: normal testes Epididymides: normal epididymides Scrotum: normal scrotum Anus / Perineum: normal anus/perineum Sphincter Tone: normal sphincter tone Prostate: normal prostate Seminal Vesicles: normal seminal vesicles Extremities: normal range of motion, non-tender, normal inspection, no pedal edema, no calf tenderness, normal capillary refill 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 Patient has small stones near UVJ. Max expulsion therapy and monitoring. Control nausea. Will follow closely. Complicated stone history. If symptoms not improved or patient worsens may need stent. Discussed with patient who wishes to avoid stent if possible. Will follow.
[2017-07-12 15:11] VITALS: BP 109/71; PULSE 73; TEMP 37; O2SAT 90
--- NOTE | 2017-07-12 16:01 | Progress Note ---
Progress Note Date of Service Jul 12, 2017. Progress Note Pt seen and examined VSS LAbs reviewed WBC improved this AM Will utilize conservative management Urology consulted Pain controlled Start on flomax
[2017-07-12] MEDS ORDERED: TAMSULOSIN HCL 0.4 MG CAP PO ONE (16:30)
[2017-07-12] MEDS ORDERED: ESZOPICLONE 3 MG TAB PO SCH (21:00)
[2017-07-12 22:44] VITALS: BP 108/73; PULSE 77; TEMP 37; O2SAT 92
[2017-07-13] MEDS: FAMOTIDINE IV INJ 20 MG in DEXTROSE 5% 100ML 100 ML IV SCH ×2 (02:37→14:23)
[2017-07-13] MEDS: CEFTRIAXONE SOD INJ 1 GM in DEXTROSE 5% ADD-VANTAGE 50ML 50 ML IV SCH (03:12)
[2017-07-13] MEDS: OXYCODONE/ACETAMINOPHEN 7.5-325 TAB PO PRN ×2 (04:04→13:42)
[2017-07-13 06:17] LABS: BASO % 0.2 %; BASO ABS # 0.02 K/uL (0-0.2); COMPLETE YES; EOS % 0.6 %; HEMATOCRIT 37.2 % (42-52); IG% 0.2 %; LYMPH % 12.9 %; LYMPH ABS # 1.58 K/uL (1.2-3.4); MEAN CELL VOLUME 87.7 fL (80-100); MEAN CORPUSCULAR HEMOGLOBIN 30.4 pg (25-34); MEAN CORPUSCULAR HGB CONC 34.7 g/dl (32-36); MEAN PLATELET VOLUME 9.8 fL (7.4-10.4); MONO % 11.6 %; NEUT % 74.5 %; PLATELET COUNT 153 K/uL (130-400); RED BLOOD COUNT 4.24 M/uL (4.7-6.1); WHITE BLOOD COUNT 12.21 K/uL (4.8-10.8)
[2017-07-13 06:54] LABS: BUN/CREATININE RATIO 7.6 (10-20); CALCIUM 7.9 mg/dl (8.5-10.1); CREATININE 1.5 mg/dl (0.60-1.40); MAGNESIUM 1.7 mg/dl (1.8-2.4); POTASSIUM 3.8 mmol/L (3.5-5.1)
[2017-07-13 06:58] VITALS: BP 115/74; PULSE 74; TEMP 37; O2SAT 92
--- NOTE | 2017-07-13 07:31 | Progress Note ---
Subjective Date of Service: Jul 13, 2017. Subjective Pt evaluation today including: conversation w/ patient Pain: Improved PO Intake: Tolerating full Pain in left flank improving. Mild radiation to groin. No stone passage. + burning. OOB and amb. Mild Nausea Problem List Medical Problems: (1) Kidney stone Status: Acute (2) Right ureteral calculus Status: Acute Review of Systems All Other Systems: Reviewed and Negative Objective Vital Signs Date Time Temp Pulse Resp B/P (MAP) Pulse Ox O2 Delivery O2 Flow Rate FiO2 07/13/17 06:58 37.0 74 19 115/74 (88) 92 Room Air 07/12/17 23:25 Room Air 07/12/17 22:44 37.0 77 16 108/73 (85) 92 Room Air 07/12/17 15:45 Room Air 07/12/17 15:11 37.0 73 16 109/71 (84) 90 Room Air Physical Exam General Appearance: WD/WN, no apparent distress Eyes: normal inspection ENT: normal ENT inspection Neck: no JVD Respiratory/Chest: chest non-tender, no respiratory distress, no accessory muscle use Cardiovascular: regular rate, rhythm Abdomen: soft Extremities: normal range of motion, non-tender Neurologic/Psychiatric: golf course starter II-XII nml as tested, no motor/sensory deficits Skin: normal color, warm/dry Laboratory Results Last 24 Hours Test 07/12/17 09:06 07/13/17 05:57 White Blood Count 12.53 K/uL 12.21 K/uL Red Blood Count 4.62 M/uL 4.24 M/uL Hemoglobin 14.2 g/dL 12.9 g/dL Hematocrit 40.4 % 37.2 % Mean Corpuscular Volume 87.4 fL 87.7 fL Mean Corpuscular Hemoglobin 30.7 pg 30.4 pg Mean Corpuscular Hemoglobin Concent 35.1 g/dl 34.7 g/dl Platelet Count 170 K/uL 153 K/uL Mean Platelet Volume 9.6 fL 9.8 fL Neutrophils (%) (Auto) 74.0 % 74.5 % Lymphocytes (%) (Auto) 14.2 % 12.9 % Monocytes (%) (Auto) 11.3 % 11.6 % Eosinophils (%) (Auto) 0.2 % 0.6 % Basophils (%) (Auto) 0.1 % 0.2 % Neutrophils # (Auto) 9.28 K/uL 9.10 K/uL Lymphocytes # (Auto) 1.78 K/uL 1.58 K/uL Monocytes # (Auto) 1.41 K/uL 1.42 K/uL Eosinophils # (Auto) 0.02 K/uL 0.07 K/uL Basophils # (Auto) 0.01 K/uL 0.02 K/uL RDW Standard Deviation 40.4 fL 40.6 fL RDW Coefficient of Variation 12.6 % 12.6 % Immature Granulocyte % (Auto) 0.2 % 0.2 % Immature Granulocyte # (Auto) 0.03 K/uL 0.02 K/uL Sodium Level 139 mmol/L Potassium Level 3.8 mmol/L Chloride Level 105 mmol/L Carbon Dioxide Level 27 mmol/L Anion Gap 7.0 mmol/L Blood Urea Nitrogen 11 mg/dl Creatinine 1.50 mg/dl Est Creatinine Clear Calc Drug Dose 91.9 ml/min Estimated GFR () 72.9 Estimated GFR (Non- 62.9 BUN/Creatinine Ratio 7.6 Random Glucose 107 mg/dl Calcium Level 7.9 mg/dl Magnesium Level 1.7 mg/dl Assessment and Plan 1. Left Stone 2. History bilateral stone 3. Renal Colic Improving overall. Straining urine. No confirmed passage yet. N/V controlled. Continue hydration and expulsion therapy. Can D/c home if improved. Plan to follow up in 1-2 weeks to confirm passage/resolution of symptoms.
[2017-07-13] MEDS ORDERED: TAMSULOSIN HCL 0.4 MG CAP PO SCH (09:00)
[2017-07-13] MEDS: MAGNESIUM SULFATE 1GM / D5W 1 GM in PREMIXED IN D5W 100 ML IV SCH ×2 (09:58→11:05)
[2017-07-13] MEDS: SODIUM CHLORIDE 0.9% 1000ML 1,000 ML IV SCH (09:59)
[2017-07-13 15:21] VITALS: BP 109/73; PULSE 73; TEMP 37; O2SAT 93
[2017-07-13 15:22] LABS: BUN/CREATININE RATIO 7.2 (10-20); CALCIUM 8.2 mg/dl (8.5-10.1); CREATININE 1.4 mg/dl (0.60-1.40); MAGNESIUM 2.4 mg/dl (1.8-2.4); POTASSIUM 3.7 mmol/L (3.5-5.1)
[2017-07-13] MEDS ORDERED: OXYB5TAB PO (16:35)
[2017-07-13] MEDS ORDERED: FLM4 PO (16:35)
--- NOTE | 2017-07-13 16:45 | Discharge Instructions ---
Discharge Instructions Date of Service Jul 13, 2017. Admission Reason for Admission: Abdominal Pain, left Ureteral Calculus Discharge Discharge Diagnosis / Problem: left ureteral calculus Discharge Goals Goal(s): Improve function, Increase independence, Specific goals (strain all urine) Activity Recommendations Activity Limitations: resume your previous activity Lifting Limitations: none Exercise/Sports Limitations: none May Resume Sexual Activity: when tolerated Shower/Bathe: no limitations Driving or Machine Use: no limitations . Instructions / Follow-Up Instructions / Follow-Up Strain all urine. Repeat labs with primary care provider in 3 days to check creatinine F/U with Urology in about 2 weeks (appt already scheduled) Do not operate Motor vehicles while taking percocet. Current Hospital Diet Patient's current hospital diet: Full Liquid Diet Discharge Diet Recommended Diet: Regular Diet Fluid Restriction: None Pending Studies Studies pending at discharge: no Medical Emergencies . Who to Call and When: Medical Emergencies: If at any time you feel your situation is an emergency, please call 911 immediately. . Non-Emergent Contact Non-Emergency issues call your: Primary Care Provider, Urologist Call Non-Emergent contact if: you have a fever, temperature is above 101, your pain is worsening . . "Provider Documentation" section prepared by Thomas Brown. . VTE Core Measure Inpt VTE Proph given/why not?: SCD's [place] Drug Monitoring Program Search Results: patient reviewed within database Drug Monitoring Findings: On 07/10/2017, patient Prescribed OXYCODON-ACETAMINOPHEN 7.5-325, had 20 tablets.
--- NOTE | 2017-07-13 17:04 | Discharge Summary ---
Discharge Summary Date of Service Jul 13, 2017. Discharge Summary Admission Date: Jul 12, 2017 at 02:21 Discharge Date: Jul 13, 2017 Discharge Disposition: Home Principal Diagnosis: left ureteral calculus Immunizations: Have You Had Influenza Vaccine: Unknown History of Tetanus Vaccine?: Unknown History of Pneumococcal: No History of Hepatitis B Vaccine: Unknown Medication Reconciliation New Medications: Oxybutynin Chloride (Oxybutynin Chloride Er) 5 Mg Tab 1 TAB PO DAILY for 14 Days, #14 TAB 1 Refill Tamsulosin HCl (Tamsulosin HCl) 0.4 Mg Cap 0.4 MG PO QAM for 14 Days, #14 CAP 1 Refill Take once daily Continued Medications: Alum & Mag Hydrox-Simethicone (Mylanta) 1 Michelle Michelle 1 DOSE PO DAILY PRN for Indigestion Amphetamine-Dextroamphetamine 30MG (Adderall 30MG) 1 Tab Tab 30 MG PO DAILY PRN for INABILITY TO CONCENTRATE Eszopiclone (Lunesta) 3 Mg Tab 3 MG PO QPM Lamotrigine (Lamotrigine) 100 Mg Tab 100 MG PO HS Oxycodone/Acetaminophen 7.5MG/325MG (Percocet 7.5MG/325MG) Tab 1 TAB PO Q4 PRN for Pain, #20 TAB Ranitidine (Zantac) 150 Mg Tab 150 MG PO DAILY PRN for HEARTBURN, TAB Sertraline Hcl (Zoloft) 100 Mg Tab 100 MG PO QAM, TAB Discharge Exam Review of Systems: Constitutional: No fever, No chills, No sweats, No weight loss, No weakness , No fatigue, No problem reported Eyes: + discharge, No worsening of vision, No eye pain, No redness, No diplopia, No problem reported ENT: + tinnitus, No hearing loss, No unusual epistaxis, No nasal symptoms Respiratory: No cough, No sputum, No wheezing Cardiovascular: No chest pain, No orthopnea, No PND Abdomen: + pain, + nausea, No vomiting, No diarrhea, No constipation Musculoskeletal: No joint pain, No muscle pain Genitourinary - Female: No dysuria, No urinary frequency, No urinary urgency Neurologic: No memory loss, No paralysis, No weakness Psychiatric: No depression symptoms, No anhedonism Endocrine: No fatigue, No excessive thirst Physical Exam: General Appearance: WD/WN, no apparent distress Eyes: normal inspection, PERRL, EOMI ENT: normal ENT inspection, hearing grossly normal, TMs normal Neck: supple, no adenopathy, thyroid normal Respiratory/Chest: chest non-tender, lungs clear, normal breath sounds, no respiratory distress Cardiovascular: regular rate, rhythm, no edema, no gallop, no JVD Abdomen / GI: normal bowel sounds, + tenderness (LUQ, no rebound tenderness) Extremities: normal inspection, no calf tenderness, normal capillary refill Neurologic/Psychiatric: no motor/sensory deficits Skin: normal color, warm/dry Lymphatic: no adenopathy Hospital Course The patient is a 26-year-old male who underwent lithotripsy on July 10 for right ureteral stone by Dr. Jose Pradhan. He reports he was doing well until earlier on the evening of 07/11/17, when he developed severe left flank pain and presents emergency department for assessment. A KUB at been performed by the ED which was nonrevealing, however CT of the abdomen and pelvis without contrast , which showed a 2 and a 3 mm distal left ureteral stone stones, with mild left hydroureteronephrosis. The previous right distal ureteral stone and right hydroureteronephrosis was resolved compared to the CT of 06/19/2017. Patient was placed on tamsulosin and pain medicine. Urology was consulted. BMP showed mild elevation of creatinine but is now coming down. UA did not show signs of infection, no need to continue antibiotics. Conservative management was recommended as stones this size usually pass at a 90 % rate. Case was discussed with Dr. Amin who will see patient in about 2 weeks. Appointment already scheduled before this admission. Upon discharge patient will be also started on oxybutynin. Pain medication already prescribed prior to this hospital stay Total Time Spent: Greater than 30 minutes This includes examination of the patient, discharge planning, medication reconciliation, and communication with other providers. Discharge Instructions Please refer to the electronic Patient Visit Report (Discharge Instructions) for additional information. Follow-Up Recommend BMP testing in 3 days to assure normalization of his kindeny function F/U with PCP in 7 days F/U with Urology in 2 weeks. Additional Copies To Rick Trejo M.D.
[2017-07-13] MEDS: HYDROmorphone INJ 1 MG/ML SYR IV PRN (17:12)
[2017-07-13 17:33] VITALS: BP 109/73; PULSE 73; TEMP 37; O2SAT 93
[2017-07-13] MEDS ORDERED: FAMOTIDINE 20 MG TAB PO SCH (21:00)
== END 2017-07-13 18:15 | disposition home or self-care (01) ==
LOC: C.EDB 23:38 → C.MSN 07-12 02:21 → ENRESERV 07-12 02:32
PROVIDERS: ADMIT Hospitalist; ATTEND Internal Medicine Sports Medicine
DX: N13.2 Hydronephrosis with renal and ureteral calculous obstruction (principal); F32.9 Major depressive disorder, single episode, unspecified; G47.00 Insomnia, unspecified; Z84.1 Family history of disorders of kidney and ureter

== ENCOUNTER → 2017-07-14 | Outpatient (CLI) | payer BC ==
[~2017-07-14] MED LIST changes: +FLM4 PO; +OXYB5TAB PO
== END | disposition home or self-care (01) ==
LOC: C.LABSPEC 16:53
PROVIDERS: ATTEND Urology
DX: N20.0 Calculus of kidney (principal)

== ENCOUNTER → 2017-07-14 | Outpatient (CLI) | payer BC ==
--- NOTE | 2017-07-14 13:19 | DIAGNOSTIC IMAGING REPORT ---
KUB CLINICAL HISTORY: 26 years-old Male presenting with right ureteral calculus. TECHNIQUE: Single supine view of the abdomen was obtained. COMPARISON: 07/12/[address] from 06/19/2017. FINDINGS: Previously noted nonobstructing calculi in the left kidney are not radiographically apparent. Previously seen noted obstructing calculus in the distal right ureter is no longer apparent, likely indicating passage. Multiple adjacent phleboliths correlated to prior CT. Mild stool burden. Nonobstructive bowel gas pattern. No evidence of free intraperitoneal gas, pneumatosis, or portal venous gas. Osseous structures normal. IMPRESSION: 1. Left renal calculi not radiographically apparent. 2. Previously seen noted distal right ureteral calculus is no longer visualized, likely indicating passage. Electronically signed by: Dmitry López M.D. 07/14/2017 1:18 PM Dictated Date/Time: 07/14/2017 1:14 PM
== END | disposition home or self-care (01) ==
LOC: C.RAD 12:53
PROVIDERS: ATTEND Urology
DX: N20.0 Calculus of kidney (principal); N20.1 Calculus of ureter

== ENCOUNTER → 2017-07-24 | Outpatient (CLI) | payer BC ==
[~2017-07-24] MED LIST changes: +OPTIRAY 300 IV PRN
--- NOTE | 2017-07-24 14:21 | DIAGNOSTIC IMAGING REPORT ---
IV PYELOGRAM CLINICAL HISTORY: Nephrolithiasis. Recent left ureteral stone status post lithotripsy. COMPARISON STUDY: Abdominal CT dated 07/12/2017. TECHNIQUE: An abdominal shift manager radiograph is performed. IVP pyelogram was then performed following the IV administration of 100 cc of Optiray 300, tomographic images are acquired in the corticomedullary and excretory phases of enhancement. Overhead views of the renal collecting system and bladder were obtained in multiple obliquities both pre and post void. FINDINGS: The abdominal shift manager radiograph shows a nonobstructed abdominal bowel gas pattern. There is mild to moderate colonic fecal retention. There is no radiographic evidence of nephrolithiasis on today's examination. Phleboliths are seen in the right hemipelvis. The bony structures appear intact. Following contrast administration there is symmetric renal cortical enhancement and contrast excretion. The kidneys are normal in size and no hydronephrosis is seen. There is no evidence of urothelial lesion within the renal pelvis bilaterally or along the course of the ureters. The bladder is normal as visualized. No significant postvoid residual is identified. IMPRESSION: 1. There is no radiographic evidence of nephrolithiasis on the shift manager tomogram. 2. Unremarkable IV pyelogram. There is no hydronephrosis. Electronically signed by: Yrn King M.D. 07/24/2017 2:16 PM Dictated Date/Time: 07/24/2017 2:14 PM
== END | disposition home or self-care (01) ==
LOC: C.RAD 12:43
PROVIDERS: ATTEND Urology
DX: N20.1 Calculus of ureter (principal)

== ENCOUNTER 2022-12-22 04:11 | Observation (INO) ==
[2022-12-22] MEDS ORDERED: ONDANSETRON INJ 2 MG/ML 2 ML VIAL IV STA (04:23)
[2022-12-22] MEDS ORDERED: fentaNYL citrate 100 MCG/2 ML VIAL IV PRN ×2 (04:23→15:06)
[2022-12-22] MEDS ORDERED: SODIUM CHLORIDE 0.9% 1000ML 1,000 ML IV ONE (04:23)
--- NOTE | 2022-12-22 04:27 | Emergency Department Note ---
History of Present Illness General Chief complaint: Chest Pain Stated complaint: CHEST PAIN,UPR ABD PAIN,NAUSEA,VOMITING,SOBB Time Seen by Provider: 12/22/22 04:17 History of Present Illness Maximum Pain Intensity: 8 This 32-year-old male with an elevated BMI who is generally for dinner presents the ER complaining of severe epigastric right upper quadrant pain. He had a few episodes in the past but nothing this bad. No prior abdominal surgeries. No alcohol use. Patient denies chest pain, dyspnea, fevers, flulike illness. is present. Home Medications Medication Instructions Recorded Confirmed Type AMPHETAMINE-DEXTROAMPHETAMINE 30MG 30 mg PO DAILY PRN INABILITY TO 11/01/14 History (ADDERALL 30MG) CONCENTRATE ##0 Eszopiclone (Lunesta) 3 mg PO QPM ##0 11/01/14 History LAMOTRIGINE 100 mg PO HS ##0 11/01/14 History Ranitidine (Zantac) 150 mg PO DAILY PRN HEARTBURN #0 06/16/17 History tabs SERTRALINE HCL (ZOLOFT) 100 mg PO QAM #0 tabs 06/16/17 History ALUM & MAG HYDROX-SIMETHICONE 1 dose PO DAILY PRN Indigestion ##0 07/07/17 History (MYLANTA) OXYBUTYNIN CHLORIDE (OXYBUTYNIN 1 tab PO DAILY 14 days #14 tabs 07/13/17 Rx CHLORIDE ER) Tamsulosin HCl 0.4 mg PO QAM 14 days #14 caps 07/13/17 Rx Allergies Allergy/AdvReac Type Severity Reaction Status Date / Time morphine AdvReac Unknown N/V Verified 07/12/17 00:21 Past Med/Surg History Medical History ADHD Allergic rhinitis Bipolar disorder Exercise-induced asthma mainly when he was younger GERD (gastroesophageal reflux disease) Kidney stone Surgical History H/O nasal septoplasty History of ankle surgery bilateral ankles Family History Denies family history of Coronary heart disease Gall bladder disease Social History Smoking Status: Never smoker Tobacco Type: Smokeless Tobacco (Dip or Chew) Cigarettes Per Day: 1 can chew/day; Hx Alcohol Use: Yes Alcohol Intake Frequency: Monthly or Less Preferred Language: Cuban marital status: Current Living Situation: Spouse current occupational status: employed 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 many Children do You have: 1 Feels Safe at Home: Yes Review of Systems A total of 10 systems reviewed and were otherwise negative Physical Exam Vital Signs Vital Signs - 24 hr 12/22/22 04:16 12/22/22 04:31 12/22/22 04:34 Temperature 36.5 C Temperature Source Temporal Artery Scan Pulse Rate 112 H 88 56 L Pulse Rate from SpO2 Sensor Pulse Rhythm Regular Respiratory Rate 22 18 Blood Pressure 153/100 H Blood Pressure Mean 117 Pulse Oximetry 99 98 Oxygen Delivery Method Room Air Room Air Sepsis Recent Fever Within 48 Hours No Sepsis New/Unexplained Change in Mental Status No Sepsis Action Taken by Nursing No Action Required 12/22/22 07:00 12/22/22 07:08 12/22/22 07:08 Temperature Temperature Source Pulse Rate 44 L 43 L Pulse Rate from SpO2 Sensor 44 L 43 L Pulse Rhythm Respiratory Rate 18 17 Blood Pressure 130/83 Blood Pressure Mean 98 Pulse Oximetry 93 94 Oxygen Delivery Method Room Air Room Air Sepsis Recent Fever Within 48 Hours Sepsis New/Unexplained Change in Mental Status Sepsis Action Taken by Nursing 12/22/22 07:30 Temperature Temperature Source Pulse Rate 65 Pulse Rate from SpO2 Sensor 66 Pulse Rhythm Respiratory Rate 18 Blood Pressure Blood Pressure Mean Pulse Oximetry 95 Oxygen Delivery Method Room Air Sepsis Recent Fever Within 48 Hours Sepsis New/Unexplained Change in Mental Status Sepsis Action Taken by Nursing VITALS: Vitals are noted on the nurse's note and reviewed by myself. Vital signs reviewed. GENERAL: White male who appears in pain, in no acute distress, nondiaphoretic, well-developed well-nourished. SKIN: The skin was without rashes, erythema, edema, or bruising. There is no tenting of the skin. Capillary reflex less than 2 seconds. HEAD: Normocephalic atraumatic. EARS: External auditory canals clear, EYES: Pupils equal round and reactive to light and accommodation. Conjunctivae without injection, sclerae without icterus. Extraocular movements intact. NOSE: Patent, turbinates without inflammation or discharge. MOUTH: Mucous membranes moist. Pharynx without erythema or exudate. Uvula midline. Airway patent. Tongue does not deviate. NECK: Supple without nuchal rigidity. No lymphadenopathy. No thyromegaly. Cervical spine is nontender. No JVD. HEART: Regular rate and rhythm LUNGS: Clear to auscultation bilaterally without wheezes, rales or rhonchi. No retractions or accessory muscle use. ABDOMEN: Positive bowel sounds x 4. Normal tympanic percussion. Soft, tender right upper quadrant, without masses or organomegaly. Abdi sign positive. No guarding or rebound tenderness. No CVA tenderness MUSCULOSKELETAL: No muscle atrophy, erythema, or edema noted. NEURO: Patient was alert and oriented to person place and time. Normal sensation to light and sharp touch. No focal neurological deficits. Course Administered Medications Lactated Ringer's (Lr) 1,000 mls @ 125 mls/hr IV .Q8H [facility] Stop: 01/21/23 07:14 Last Admin: 12/22/22 08:30 Dose: 125 mls/hr Documented By: AMADA Piperacillin Sod/Tazobactam (Sod 4.5 gm/ Dextrose) 120 mls @ 30 mls/hr IV Q8H [facility]; Protocol Stop: 01/01/23 10:59 Last Admin: 12/22/22 10:23 Dose: 30 mls/hr Documented By: AMADA Famotidine 20 mg/ Syringe 5 mls @ 2.5 mls/min IV BID [facility] Stop: 01/21/23 10:59 Last Admin: 12/22/22 11:40 Dose: 2.5 mls/min Documented By: AMADA Miscellaneous (Remove Nicoderm Patch) 1 each N/A DAILY@0859 [facility] Stop: 01/21/23 10:58 Last Admin: 12/22/22 11:46 Dose: Not Given Documented By: AMADA Nicotine (Nicotine 7 Mg/24 Hr Tdsy) 7 mg TD [facility] Stop: 01/21/23 10:59 Last Admin: 12/22/22 11:44 Dose: 7 mg Documented By: AMADA Sertraline HCl (Sertraline Hcl 100 Mg Tablet) [facility] Stop: 01/21/23 11:09 Last Admin: 12/22/22 11:46 Dose: Not Given Documented By: AMADA Discontinued Medications Bupivacaine HCl (Bupivacaine 0.5 % 5 Mg/1 Ml Mpf 30ml Vial) Confirm Administered Dose 30 ml .ROUTE .STK-MED ONE Stop: 12/22/22 15:43 Last Admin: 12/22/22 17:04 Dose: 10 ml Documented By: JIMMIE Famotidine (Famotidine 20mg/5ml Iv Push) Confirm Administered Dose 20 mg IV .STK-MED ONE Stop: 12/22/22 11:39 Last Admin: 12/22/22 11:40 Dose: Not Given Documented By: AMADA Fentanyl Citrate (Fentanyl Citrate 100 Mcg/2 Ml Vial) 50 mcg IV Q15M PRN PRN Reason: Pain Stop: 01/05/23 04:22 Last Admin: 12/22/22 07:50 Dose: 50 mcg Documented By: AMADA Sodium Chloride (Nss 1000ml) 1,000 mls @ 999 mls/hr IV .Q1H1M ONE Stop: 12/22/22 05:23 Last Infusion: 12/22/22 05:38 Dose: 0 mls/hr Documented By: MARIA LUZ Admin: 12/22/22 04:36 Dose: 999 mls/hr Documented By: MARIA LUZ Piperacillin Sod/Tazobactam Sod (Zosyn) 4.5 gm in 120 mls @ 240 mls/hr IV NOW ONE Stop: 12/22/22 05:49 Last Infusion: 12/22/22 06:14 Dose: 0 mls/hr Documented By: MARIA LUZ Admin: 12/22/22 05:42 Dose: 240 mls/hr Documented By: MARIA LUZ Acetaminophen (Ofirmev) 1,000 mg in 100 mls @ 400 mls/hr IV NOW ONE Stop: 12/22/22 17:20 Last Admin: 12/22/22 17:56 Dose: Not Given Documented By: VERO Indomethacin (Indomethacin 50 Mg Supp) 100 mg AL ONE ONE Stop: 12/22/22 08:22 Last Admin: 12/22/22 16:14 Dose: 100 mg Documented By: Ondansetron HCl (Ondansetron Inj 2 Mg/Ml 2 Ml Vial) 4 mg IV NOW STA Stop: 12/22/22 04:24 Last Admin: 12/22/22 04:37 Dose: 4 mg Documented By: MARIA LUZ Medical Decision Making Medical Records Attestation: I reviewed the patient's medical records. Home Medications Current Medication List: was personally reviewed by me Laboratory Data Attestation: I reviewed the patient's lab results. 12/22/22 04:35 12/22/22 04:35 Lab Results 12/22/22 12/22/22 12/22/22 Range/Units 04:35 04:35 04:36 WBC 7.46 (4.8-10.8) K/ul RBC 5.05 (4.70-6.10) M/uL Hgb 15.2 (14.0-18.0) g/dl Hct 44.0 (42.0-52.0) % MCV 87.1 (80.0-100.0) fL MCH 30.1 (25.0-34.0) pg MCHC 34.5 (32.0-36.0) g/dL RDW Std Deviation 40.4 (36.4-46.3) fL RDW Coeff of Wilbur 12.8 (11.5-14.5) % Plt Count 216 (130-400) K/uL MPV 9.5 (9.4-12.4) fL Immature Gran % (Auto) 0.1 % Neut % (Auto) 66.6 % Lymph % (Auto) 21.8 % [place] % (Auto) 9.5 % Eos % (Auto) 1.5 % Baso % (Auto) 0.5 % Neut # (Auto) 4.96 (1.40-6.50) K/uL Lymph # (Auto) 1.63 (1.2-3.4) K/uL [place] # (Auto) 0.71 H (0.11-0.59) K/uL Eos # (Auto) 0.11 (0-0.50) K/uL Baso # (Auto) 0.04 (0-0.2) K/uL Immature Gran # (Auto) 0.01 (0.01-0.20) K/uL PT 10.6 (9.0-12.0) Seconds INR 1.0 (0.9-1.1) APTT 25.1 (21.0-31.0) Seconds PTT Ratio 0.9 Sodium 142 (136-145) mmol/L Potassium 3.9 (3.5-5.1) mmol/L Chloride 106 (98-107) mmol/L Carbon Dioxide 28 (21-32) mmol/L Anion Gap 8 (3-11) BUN 13 (6-23) mg/dl Creatinine 0.86 (0.6-1.4) mg/dl Est Cr Clr Drug Dosing 142.1 ml/min Est GFR ( Amer) 132.1 ml/min Est GFR (Non-Af Amer) 113.9 ml/min BUN/Creatinine Ratio 15.1 (10-20) Glucose 115 H (70-99(Fasting)) mg/dl Calcium 9.8 (8.5-10.1) mg/dl Total Bilirubin 2.3 H (0.2-1.0) mg/dl AST 418 H (13-39) U/L ALT 367 H (7-52) U/L Alkaline Phosphatase 98 (34-104) U/L Troponin I High Sens 2.9 (0-20) pg/ml Total Protein 7.1 (6.0-8.3) gm/dl Albumin 4.6 (3.4-5.0) gm/dl Globulin 2.5 (2.5-4.0) gm/dl Albumin/Globulin Ratio 1.8 (0.9-2) Lipase 53 (11-82) U/L SARS-CoV-2, RNA, NAAT (NEGATIVE) 12/22/22 Range/Units 04:43 WBC (4.8-10.8) K/ul RBC (4.70-6.10) M/uL Hgb (14.0-18.0) g/dl Hct (42.0-52.0) % MCV (80.0-100.0) fL MCH (25.0-34.0) pg MCHC (32.0-36.0) g/dL RDW Std Deviation (36.4-46.3) fL RDW Coeff of Wilbur (11.5-14.5) % Plt Count (130-400) K/uL MPV (9.4-12.4) fL Immature Gran % (Auto) % Neut % (Auto) % Lymph % (Auto) % [place] % (Auto) % Eos % (Auto) % Baso % (Auto) % Neut # (Auto) (1.40-6.50) K/uL Lymph # (Auto) (1.2-3.4) K/uL [place] # (Auto) (0.11-0.59) K/uL Eos # (Auto) (0-0.50) K/uL Baso # (Auto) (0-0.2) K/uL Immature Gran # (Auto) (0.01-0.20) K/uL PT (9.0-12.0) Seconds INR (0.9-1.1) APTT (21.0-31.0) Seconds PTT Ratio Sodium (136-145) mmol/L Potassium (3.5-5.1) mmol/L Chloride (98-107) mmol/L Carbon Dioxide (21-32) mmol/L Anion Gap (3-11) BUN (6-23) mg/dl Creatinine (0.6-1.4) mg/dl Est Cr Clr Drug Dosing ml/min Est GFR ( Amer) ml/min Est GFR (Non-Af Amer) ml/min BUN/Creatinine Ratio (10-20) Glucose (70-99(Fasting)) mg/dl Calcium (8.5-10.1) mg/dl Total Bilirubin (0.2-1.0) mg/dl AST (13-39) U/L ALT (7-52) U/L Alkaline Phosphatase (34-104) U/L Troponin I High Sens (0-20) pg/ml Total Protein (6.0-8.3) gm/dl Albumin (3.4-5.0) gm/dl Globulin (2.5-4.0) gm/dl Albumin/Globulin Ratio (0.9-2) Lipase (11-82) U/L SARS-CoV-2, RNA, NAAT NEGATIVE (NEGATIVE) Imaging Data Attestation: I personally reviewed and interpreted this imaging study as follows: Radiologist's Impression: Chest X-Ray 12/22/22 04:17 XR chest 1V portable CLINICAL HISTORY: Chest pain, nonspecific TECHNIQUE: Single frontal radiograph of the chest was obtained. Comparison: Comparison is made to chest and abdomen radiograph 06/10/2015 FINDINGS: No lines and tubes are seen. The cardiomediastinal silhouette is normal. The lungs are clear. No evidence of pleural effusion or pneumothorax. IMPRESSION: No acute chest disease. ACT 112: Negative or not required by law. Electronically signed by: Jimbo Hough M.D. 12/22/2022 7:58 AM Gallbladder Ultrasound 12/22/22 04:23 US gallbladder CLINICAL HISTORY: Right upper quadrant abdominal pain. COMPARISON STUDY: CT of the abdomen and pelvis April 18, 2019. FINDINGS: Hepatic echogenicity is increased. No hepatic lesions are identified. There is no biliary ductal dilatation. The common bile duct measures 5 mm in caliber. A large gallstone within the gallbladder is noted. There is sludge within the gallbladder is well. Mild gallbladder wall thickening is noted. The wall measures 4 mm in thickness. Sonographic Abdi sign was elicited. There is no biliary ductal dilatation. The common bile duct measures 5 mm in caliber. Pancreas is largely obscured. There is no right hydronephrosis. IMPRESSION: 1. Cholelithiasis with mild gallbladder wall thickening and positive sonographic Abdi sign. These findings favor acute cholecystitis. A hepatobiliary scan could be obtained as indicated. 2. No biliary ductal dilatation. 3. Obscured pancreas. ACT 112: Negative or not required by law. Electronically signed by: Chepe Ribeiro M.D. 12/22/2022 6:49 AM Cholangiopancreatography MRI 12/22/22 05:46 MRCP CLINICAL HISTORY: elevated LFTs, gallstones TECHNIQUE: Utilizing a 1.5 Christin magnet and dedicated coil, multiplanar, multiecho imaging of the upper abdomen was performed utilizing heavily T2 weighted pulsing sequences without IV contrast. COMPARISON STUDY: CT of the abdomen and pelvis November 18, 2017 and right upper quadrant ultrasound performed earlier today. FINDINGS: There is no intra or extrahepatic biliary ductal dilatation. The common bile duct measures 5 mm in caliber. There is a possible 3 mm T2 hypointense focus within the distal common bile duct. This may reflect a calculus. Multiple gallstones within the gallbladder measure up to 2 cm. There is mild gallbladder wall thickening. The gallbladder is mildly distended. No hepatic lesions are identified on this unenhanced exam. Unenhanced images of the spleen, adrenal glands, kidneys and pancreas are unremarkable. There is no abdominal lymphadenopathy or ascites. Caliber and wall thickness of visualized small and large bowel are normal. There is no pancreatic ductal dilatation. IMPRESSION: 1. No biliary ductal dilatation. Possible small common bile duct calculus, measuring 3 mm. 2. Cholelithiasis with mild gallbladder wall thickening. Acute cholecystitis cannot be excluded. If indicated, a hepatobiliary scan could be obtained. ACT 112: Negative or not required by law. Electronically signed by: Chepe Ribeiro M.D. 12/22/2022 7:05 AM [facility] Narrative Prior records/ancillary studies reviewed. Triage Nursing notes reviewed. Additional history obtained from family. The patient's history was concerning for abdominal pain. Differential diagnosis: Etiologies such as appendicitis, diverticulitis, PUD, biliary pathology, UTI, pancreatitis, obstruction, mesenteric ischemia, aortic pathology, infections, inflammatory bowel disease, renal colic, as well as others were entertained. Physical examination findings: As above. ER treatment provided: An order was placed for continuous cardiac monitoring. The monitor shows a rate of 60-1 50 with a sinus rhythm per my Independent interpretation. Fentanyl, Zofran, IV fluids, Zosyn On reassessment the patient felt better. Diagnostics interpreted by me: ECG: Ordered for upper abdominal pain EKG: Normal sinus, normal intervals, no acute ST-T wave changes. Impression normal sinus rhythm interpreted by myself I think arrhythmia is unlikely. EKG shows normal sinus rhythm with no interval abnormalities such as QT prolongation or WPW. There are no findings to suggest Brugada syndrome. Cardiac monitoring in the emergency department reveals no tachycardic or bradycardic dysrhythmia. Hypertrophic cardiomyopathy was considered but there are no clear historical elements pointing toward this. EKG is not suggestive. The QRS voltage is not extremely large and there are no suggestive Q waves. The labs Independently Interpreted by myself revealed No worrisome leukocytosis, elevated bilirubin and LFTs. Imaging studies: Chest x-ray with no acute consolidation, pneumothorax or free air per my i ndependent rotation Ultrasound was reviewed by myself and read by radiology. Consultation: A consultation was placed with the Darien HERNANDEZ. The case was discussed and diagnostics were reviewed. The patient was evaluated in the ER for further treatment. They recommend medical admission. Medicine was consulted and the case was discussed. Patient will be admitted to this medicine service for possible ERCP as LFTs are elevated. Exam and history seem consistent with cholelithiasis with concerns for possible choledocholithiasis. Patient was started on antibiotics. Labs and diagnostics were independently interpreted by myself. Patient had elevated LFTs. He was given IV antibiotics. Medicine and surgery were consulted. Patient will be admitted to the medical service. Patient may need an ERCP. By the evaluation outlined above emergent etiologies such as appendicitis, diverticulitis, UTI, pancreatitis, mesenteric ischemia, aortic pathology, inflammatory bowel disease, renal colic, as well as others were deemed relatively unlikely. The pt informed about the findings as listed above. All questions were answered and pleased with the treatment. The chart was completed utilizing [employer] Speech voice recognition software. Grammatical errors, random word insertions, pronoun errors, and incomplete sentences are an occassional consequence of this system due to software limitations, ambient noise, and hardware issues. Any formal questions or concerns about the content, text, or information contained within the body of this dictation should be directly addressed to the physician assistant spa director for clarification. Impression & Plan Abdominal pain, acute, Cholelithiasis, Elevated LFTs Discharge Plan Visit Data Chief Complaint: Chest Pain Stated Complaint: CHEST PAIN,UPR ABD PAIN,NAUSEA,VOMITING,SOBB ED Provider: Abdia Fajardo ED Midlevel Provider: Neeta Roberts Discharge Problem: Abdominal pain, acute, Cholelithiasis, Elevated LFTs Patient Disposition: Admitted As Inpatient Condition: Good Discharge Instructions Interventions: ED Discharge Assessment Last Done: 12/22/22 13:13
[2022-12-22 05:16] LABS: Albumin Globulin Ratio 1.8 (0.9-2); Albumin Level 4.6 gm/dl (3.4-5.0); BUN Creatinine Ratio 15.1 (10-20); Bilirubin,Total 2.3 mg/dl (0.2-1.0); Calcium 9.8 mg/dl (8.5-10.1); Creatinine Clr Calc Pharmacy 142.1 ml/min; Est GFR (African American) 132.1 ml/min; Est GFR (Non-African American) 113.9 ml/min; Globulin 2.5 gm/dl (2.5-4.0); Potassium 3.9 mmol/L (3.5-5.1); Total Protein 7.1 gm/dl (6.0-8.3)
[2022-12-22] MEDS ORDERED: PIPERACILLIN/TAZOBACTAM 4.5 GM/120 ML BAG IV ONE (05:20)
[2022-12-22 05:21] LABS: Basophils # (auto) 0.04 K/uL (0-0.2); Basophils % (auto) 0.5 %; Eosinophils # (auto) 0.11 K/uL (0-0.50); Eosinophils % (auto) 1.5 %; Hemoglobin 15.2 g/dl (14.0-18.0); Immature Granulocytes # (auto) 0.01 K/uL (0.01-0.20); Immature Granulocytes % (auto) 0.1 %; Lymphocytes # (auto) 1.63 K/uL (1.2-3.4); Lymphocytes % (auto) 21.8 %; Mean Corpuscular Hemoglobin 30.1 pg (25.0-34.0); Mean Corpuscular Hgb Conc 34.5 g/dL (32.0-36.0); Mean Corpuscular Volume 87.1 fL (80.0-100.0); Mean Platelet Volume 9.5 fL (9.4-12.4); Monocytes # (auto) 0.71 K/uL (0.11-0.59); Monocytes % (auto) 9.5 %; Neutrophils # (auto) 4.96 K/uL (1.40-6.50); Neutrophils % (auto) 66.6 %; Platelet Count 216 K/uL (130-400); RDW Coefficient of Variation 12.8 % (11.5-14.5); RDW Standard Deviation 40.4 fL (36.4-46.3); Red Blood Count 5.05 M/uL (4.70-6.10); White Blood Count 7.46 K/ul (4.8-10.8)
[2022-12-22 05:23] LABS: Troponin I High Sensitivity 2.9 pg/ml (0-20)
--- NOTE | 2022-12-22 05:44 | Surgery Consultation ---
Date of Consultation December 22, 2022 Assessment & Plan (1) Cholelithiasis: I discussed with the treating clinician the emergency department and she is having the patient admitted on the hospitalist service. Recommend proceeding as follows: Provide analgesics Provide antiemetics Antibiotics in form of Zosyn have been initiated which I recommend continuing for the present time Implement n.p.o. status it looks like the patient may require procedural intervention Provide IV fluid for hydration Follow serial labs I discussed with the patient that he will likely need a cholecystectomy however due to his elevated LFTs we want to ensure he does not have choledocholithiasis. We will therefore obtain an MRCP to evaluate for this possibility. Decision about proceeding with cholecystectomy will be dependent on MRCP resultsif patient is noted to have choledocholithiasis gastroenterology will need to be involved to potentially form ERCP if indicated Additional recommendations be forthcoming based on pending results and his clinical course as it unfolds (2) Elevated LFTs: Supervising Physician Co-Signing Physician Notes As per Darien Gregory physician desk assistant Patient reports some pain again in right side when the pain medicine wears off Has had other issues in the past for reflux type of symptoms specially whenever eating spicy foods No family history of gallstones Abdomen soft tenderness in right upper quadrant At this point we will proceed with an MRCP if negative for choledocholithiasis then proceed with laparoscopic cholecystectomy intraoperative cholangiogram today if positive for choledocholithiasis try to arrange for laparoscopic cholecystectomy at the same time an ERCP All question answered History of Present Illness Reason for Consultation: Cholelithiasis History of Present Illness This is a 32-year-old male who presented to [facility] secondary to abdominal pain. He notes that the pain occurred last evening several hours after eating a meal. He notes the pain is primary located in the right upper quadrant without radiation. He does not note any modifying factors other than medicines that were administered in the emergency department. He denies any nausea or vomiting. He notes he has never had any abdominal surgery before. The patient notes that in the past he has received some postprandial abdominal pain not as severe as this that he always attributed to GERD. Since arrival to the hospital the patient has had labs and imaging which independent reviewed. Patient did have a gallbladder ultrasound that showed the patient had gallstones with gallbladder sludge. There not appear to be any distinct biliary ductal dilatation. The gallbladder wall was thickened at 4 mm and there is no pericholecystic fluid. The tissue technologist did report a positive Abdi sign. A chest x-ray was performed that did not appear to show any evidence of pneumonia. Labs include a CBC her white blood cell count, hemoglobin, hematocrit, and platelet count were normal. Chemistry profile showed sodium, potassium, BUN, and creatinine were normal. LFTs were elevated with total bilirubin of 2.3 and an AST of 418 and an ALT of 367. Alkaline phosphatase was not elevated. A COVID test was negative. The patient's lipase was nonelevated. In the emergency department the patient received 1 L of intravenous fluids. He has received antibiotics in the form of Zosyn and he did require 50 mcg of fentanyl for pain control At the time of my interview he was resting comfortably in bed and he was in no distress. Allergies Allergy/AdvReac Type Severity Reaction Status Date / Time morphine AdvReac Unknown N/V Verified 07/12/17 00:21 Home Medications Medication Instructions Recorded Confirmed Type AMPHETAMINE-DEXTROAMPHETAMINE 30MG 30 mg PO DAILY PRN INABILITY TO 11/01/14 History (ADDERALL 30MG) CONCENTRATE ##0 Eszopiclone (Lunesta) 3 mg PO QPM ##0 11/01/14 History LAMOTRIGINE 100 mg PO HS ##0 11/01/14 History Ranitidine (Zantac) 150 mg PO DAILY PRN HEARTBURN #0 06/16/17 History tabs SERTRALINE HCL (ZOLOFT) 100 mg PO QAM #0 tabs 06/16/17 History ALUM & MAG HYDROX-SIMETHICONE 1 dose PO DAILY PRN Indigestion ##0 07/07/17 History (MYLANTA) OXYBUTYNIN CHLORIDE (OXYBUTYNIN 1 tab PO DAILY 14 days #14 tabs 07/13/17 Rx CHLORIDE ER) Tamsulosin HCl 0.4 mg PO QAM 14 days #14 caps 07/13/17 Rx Patient History Medical History (Updated 12/22/22 @ 08:19 by Dony Stein) ADHD Allergic rhinitis Bipolar disorder Exercise-induced asthma mainly when he was younger GERD (gastroesophageal reflux disease) Kidney stone Surgical History (Updated 12/22/22 @ 08:16 by Dony Stein) H/O nasal septoplasty History of ankle surgery bilateral ankles Family History Denies family history of Coronary heart disease Gall bladder disease Social History (Updated 12/22/22 @ 08:17 by Dony Stein) Smoking Status: Never smoker Tobacco Type: Smokeless Tobacco (Dip or Chew) Cigarettes Per Day: 1 can chew/day; Hx Alcohol Use: Yes Alcohol Intake Frequency: Monthly or Less Preferred Language: Kiswahili marital status: Current Living Situation: Spouse current occupational status: employed 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 many Children do You have: 1 Feels Safe at Home: Yes Review of Systems Constitutional: no fever and no chills Eyes: no eye pain Ear, Nose, Mouth, Throat: no ear pain Respiratory: no cough Cardiovascular: no chest pain Gastrointestinal: as per Subjective / HPI Genitourinary: no dysuria Musculoskeletal: no back pain Integumentary: no rash Neurologic: no localized weakness Physical Exam Constitutional: WD/WN, vitals as above Eyes: + anicteric sclerae; no conjunctival abnormality ENMT: Ears: no hearing impairment and no external ear abnormality Sublingual jaundice is absent Neck: trachea midline Respiratory: normal respiratory effort; no respiratory distress and no labored breathing Cardiovascular: Rate/Rhythm: regular rate and regular rhythm Gastrointestinal (Abdomen): Abdomen is rotund but soft. It is nonrigid. There is pain noted with palpation in the right upper quadrant (the patient has just received fentanyl for analgesia prior to my examination) there is minimal pain in the epigastric region. There is no rebound tenderness or guarding Musculoskeletal: No calf tenderness Skin: no rashes and no jaundice Neurologic: moves all extremities Psychiatric: A+Ox3, euthymic affect Results & Data ([facility]) Vital Signs (Past 12 Hours) Vital Signs Temp Pulse Resp BP Pulse Ox O2 Del Method 12/22/22 04:34 56 L 12/22/22 04:31 88 18 98 Room Air 12/22/22 04:16 36.5 C 112 H 22 153/100 H 99 Room Air PG Care Time/CCT Total # of Minutes Spent Total Time Spent with Patient: Total time spent is greater than 50% in coordination of care (as documented) at patient's floor/unit and/or counseling patient: Coding Level of Care Code INP/OBS CONSULT LVL 5, 80 MIN Diagnoses Cholelithiasis K80.20 Elevated LFTs R79.89
--- NOTE | 2022-12-22 06:50 | Ultrasound Report ---
US gallbladder CLINICAL HISTORY: Right upper quadrant abdominal pain. COMPARISON STUDY: CT of the abdomen and pelvis April 18, 2019. FINDINGS: Hepatic echogenicity is increased. No hepatic lesions are identified. There is no biliary d uctal dilatation. The common bile duct measures 5 mm in caliber. A large gallstone within the gallbla dder is noted. There is sludge within the gallbladder is well. Mild gallbladder wall thickening is no chanel. The wall measures 4 mm in thickness. Sonographic Abdi sign was elicited. There is no biliary d uctal dilatation. The common bile duct measures 5 mm in caliber. Pancreas is largely obscured. There is no right hydronephrosis. IMPRESSION: 1. Cholelithiasis with mild gallbladder wall thickening and positive sonographic Abdi sign. These f indings favor acute cholecystitis. A hepatobiliary scan could be obtained as indicated. 2. No biliary ductal dilatation. 3. Obscured pancreas. ACT 112: Negative or not required by law. Electronically signed by: Chepe Ribeiro M.D. 12/22/2022 6:49 AM
--- NOTE | 2022-12-22 07:05 | History & Physical Report ---
Date of Service December 22, 2022 Assessment & Plan (1) Acute cholecystitis: Plan: Clinical history, exam, labs, and imaging studies highly suggestive of acute cholecystitis. He may have choledocholithiasis based on elevated t.bili along with MRCP showing possible distal 3mm CBD stone. He is hemodynamically stable at this time. Plan - * admit to med/surg * NPO except meds * generous IV fluids (LR at 125cc/hr) * continue IV zosyn q8h * IV dilaudid q6h prn * IV zofran prn * IV pepcid q12h * general surgery consult appreciated * [facility] consult for ?choledocholithiasis and potential need for ERCP - appreciate their assistance * CMP in am (2) Choledocholithiasis: Plan: MRCP suggestive of a 3mm distal CBD stone. I corresponded with Dr Viri Dejesus - [facility] - and requested formal cons ultation. Patient to likely need ERCP. See #1 above re: antibiotics, fluids, etc. Keep NPO. (3) Abnormal LFTs: Plan: 2nd to #1, #2. LFTs in am. Lipase noted to be normal. (4) ADHD: Plan: Hold his stimulant medication while here. (5) Bipolar disorder: Plan: Controlled, no recent yolanda. Continue lamictal. Continue zoloft. Continue lunesta. (6) GERD (gastroesophageal reflux disease): Plan: Start pepcid 20mg IV BID. (7) Exercise-induced asthma: Plan: No recent issues. No recent albuterol use. Lungs clear; O2 sats wnl. (8) DVT prophylaxis: Plan: Defer on chemical means due to likely need for ERCP then surgery for his gall bladder. He is low risk as well. Ambulation. (9) Obesity (BMI 30-39.9): Plan: BMI 36. Plan Pt's updated at bedside. History of Present Illness Chief Complaint: severe abdominal pain Primary Care Provider: Steven Dunham MD 32yo male with past h/o kidney stones s/p lithotripsy, bipolar disorder, ADHD, and GERD presents with the acute onset of severe upper abdominal pain beginning early evening on 12/21/22. Patient states he was feeling well and in his usual health yesterday. He and his ate strombolis for dinner late afternoon and within a couple of hours the abdominal pain began. He had associated vomiting. Some of the pain radiated to the back. Retrospectively he has had similar episodes like this over the last 4-6 months including an abdominal pain episode that caused him to come home early from work one time. He thought these episodes were from his GERD for which he takes prn pepcid. The pain persisted all evening and into the early AM hours of 12/22/22. Thus, he finally came to the ER for evaluation. Denies any fevers or chills. Denies chest pain or dyspnea. Denies diarrhea. Since coming to the ER and receiving IV narcotics he is more comfortable. He mentions he had considerable pain during his RUQ u/s. ER course - IV fluid bolus; IV zosyn x 1; zofran x 1; fentanyl IV RUQ u/s, MRCP Allergies Allergy/AdvReac Type Severity Reaction Status Date / Time morphine AdvReac Unknown N/V Verified 07/12/17 00:21 Home Medications Medication Instructions Recorded Confirmed Type AMPHETAMINE-DEXTROAMPHETAMINE 30MG 30 mg PO DAILY PRN INABILITY TO 11/01/14 History (ADDERALL 30MG) CONCENTRATE ##0 Eszopiclone (Lunesta) 3 mg PO QPM ##0 11/01/14 History LAMOTRIGINE 100 mg PO HS ##0 11/01/14 History Ranitidine (Zantac) 150 mg PO DAILY PRN HEARTBURN #0 06/16/17 History tabs SERTRALINE HCL (ZOLOFT) 100 mg PO QAM #0 tabs 06/16/17 History ALUM & MAG HYDROX-SIMETHICONE 1 dose PO DAILY PRN Indigestion ##0 07/07/17 History (MYLANTA) OXYBUTYNIN CHLORIDE (OXYBUTYNIN 1 tab PO DAILY 14 days #14 tabs 07/13/17 Rx CHLORIDE ER) Tamsulosin HCl 0.4 mg PO QAM 14 days #14 caps 07/13/17 Rx Past Med/Surg History Medical History (Updated 12/22/22 @ 08:29 by Dony Stein) ADHD Allergic rhinitis Bipolar disorder Exercise-induced asthma mainly when he was younger GERD (gastroesophageal reflux disease) Kidney stone Surgical History (Updated 12/22/22 @ 08:16 by Dony Stein) H/O nasal septoplasty History of ankle surgery bilateral ankles Family History Denies family history of Coronary heart disease Gall bladder disease Social History (Updated 12/22/22 @ 08:17 by Dony Stein) Smoking Status: Never smoker Tobacco Type: Smokeless Tobacco (Dip or Chew) Cigarettes Per Day: 1 can chew/day; Hx Alcohol Use: Yes Alcohol Intake Frequency: Monthly or Less Preferred Language: Polish marital status: Current Living Situation: Spouse current occupational status: employed 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 many Children do You have: 1 Feels Safe at Home: Yes Review of Systems Review of Systems: gen - no fevers/chills HENT - no runny nose; had a sore throat yesterday eyes - no visual complaints CV - no chest pain pulm - no cough, no wheeze, no dyspnea GI - severe upper abd pain with vomiting; no diarrhea; no BRBPR - no LUTs or dysuria musculo - no myalgias neuro - no headaches endo - denies diabetes skin - no rash psych - no recent issues with bipolar d/o Physical Exam Physical Exam: gen - NAD, awake, alert eyes - no icterus, PERRL HENT - MMM, no lesions, tonsils 3+ b/l neck - supple, no lymph nodes, no JVD heart - RRR, s1 s2, no murmur lungs - CTA b/l, no wheeze abd - soft, tender high epigastric region & RUQ; no rebound/no peritoneal signs; BS+; no HSM ext - no edema, pulses 2+ b/l neuro - patellar reflexes 2+ b/l; strength 5/5 x 4 exts skin - no jaundice psych - affect wnl; a/o x 3 Results & Data Results & Data ([facility]) Vital Signs (Past 12 Hours) Vital Signs Temp Pulse Resp BP Pulse Ox O2 Del Method 12/22/22 04:34 56 L 12/22/22 04:31 88 18 98 Room Air 12/22/22 04:16 36.5 C 112 H 22 153/100 H 99 Room Air Laboratory Results Laboratory Results - last 24 hr 12/22/22 12/22/22 12/22/22 04:35 04:35 04:36 WBC 7.46 RBC 5.05 Hgb 15.2 Hct 44.0 MCV 87.1 MCH 30.1 MCHC 34.5 RDW Std Deviation 40.4 RDW Coeff of Wilbur 12.8 Plt Count 216 MPV 9.5 Immature Gran % (Auto) 0.1 Neut % (Auto) 66.6 Lymph % (Auto) 21.8 Morehouse % (Auto) 9.5 Eos % (Auto) 1.5 Baso % (Auto) 0.5 Neut # (Auto) 4.96 Lymph # (Auto) 1.63 Morehouse # (Auto) 0.71 H Eos # (Auto) 0.11 Baso # (Auto) 0.04 Immature Gran # (Auto) 0.01 PT Pending INR Pending APTT Pending PTT Ratio Pending Sodium 142 Potassium 3.9 Chloride 106 Carbon Dioxide 28 Anion Gap 8 BUN 13 Creatinine 0.86 Est Cr Clr Drug Dosing 142.1 Est GFR ( Amer) 132.1 Est GFR (Non-Af Amer) 113.9 BUN/Creatinine Ratio 15.1 Glucose 115 H Calcium 9.8 Total Bilirubin 2.3 H AST 418 H ALT 367 H Alkaline Phosphatase 98 Troponin I High Sens 2.9 Total Protein 7.1 Albumin 4.6 Globulin 2.5 Albumin/Globulin Ratio 1.8 Lipase 53 SARS-CoV-2, RNA, NAAT 12/22/22 04:43 WBC RBC Hgb Hct MCV MCH MCHC RDW Std Deviation RDW Coeff of Wilbur Plt Count MPV Immature Gran % (Auto) Neut % (Auto) Lymph % (Auto) Morehouse % (Auto) Eos % (Auto) Baso % (Auto) Neut # (Auto) Lymph # (Auto) Morehouse # (Auto) Eos # (Auto) Baso # (Auto) Immature Gran # (Auto) PT INR APTT PTT Ratio Sodium Potassium Chloride Carbon Dioxide Anion Gap BUN Creatinine Est Cr Clr Drug Dosing Est GFR ( Amer) Est GFR (Non-Af Amer) BUN/Creatinine Ratio Glucose Calcium Total Bilirubin AST ALT Alkaline Phosphatase Troponin I High Sens Total Protein Albumin Globulin Albumin/Globulin Ratio Lipase SARS-CoV-2, RNA, NAAT NEGATIVE Diagnostic Findings Chest X-Ray 12/22/22 04:17 XR chest 1V portable CLINICAL HISTORY: Chest pain, nonspecific TECHNIQUE: Single frontal radiograph of the chest was obtained. Comparison: Comparison is made to chest and abdomen radiograph 06/10/2015 FINDINGS: No lines and tubes are seen. The cardiomediastinal silhouette is normal. The lungs are clear. No evidence of pleural effusion or pneumothorax. IMPRESSION: No acute chest disease. ACT 112: Negative or not required by law. Electronically signed by: Jimbo Hough M.D. 12/22/2022 7:58 AM Gallbladder Ultrasound 12/22/22 04:23 US gallbladder CLINICAL HISTORY: Right upper quadrant abdominal pain. COMPARISON STUDY: CT of the abdomen and pelvis April 18, 2019. FINDINGS: Hepatic echogenicity is increased. No hepatic lesions are identified. There is no biliary ductal dilatation. The common bile duct measures 5 mm in caliber. A large gallstone within the gallbladder is noted. There is sludge within the gallbladder is well. Mild gallbladder wall thickening is noted. The wall measures 4 mm in thickness. Sonographic Abdi sign was elicited. There is no biliary ductal dilatation. The common bile duct measures 5 mm in caliber. Pancreas is largely obscured. There is no right hydronephrosis. IMPRESSION: 1. Cholelithiasis with mild gallbladder wall thickening and positive sonographic Abdi sign. These findings favor acute cholecystitis. A hepatobiliary scan could be obtained as indicated. 2. No biliary ductal dilatation. 3. Obscured pancreas. ACT 112: Negative or not required by law. Electronically signed by: Chepe Ribeiro M.D. 12/22/2022 6:49 AM Cholangiopancreatography MRI 12/22/22 05:46 MRCP CLINICAL HISTORY: elevated LFTs, gallstones TECHNIQUE: Utilizing a 1.5 Christin magnet and dedicated coil, multiplanar, multiecho imaging of the upper abdomen was performed utilizing heavily T2 weighted pulsing sequences without IV contrast. COMPARISON STUDY: CT of the abdomen and pelvis November 18, 2017 and right upper quadrant ultrasound performed earlier today. FINDINGS: There is no intra or extrahepatic biliary ductal dilatation. The common bile duct measures 5 mm in caliber. There is a possible 3 mm T2 hypointense focus within the distal common bile duct. This may reflect a calculus. Multiple gallstones within the gallbladder measure up to 2 cm. There is mild gallbladder wall thickening. The gallbladder is mildly distended. No hepatic lesions are identified on this unenhanced exam. Unenhanced images of the spleen, adrenal glands, kidneys and pancreas are unremarkable. There is no abdominal lymphadenopathy or ascites. Caliber and wall thickness of visualized small and large bowel are normal. There is no pancreatic ductal dilatation. IMPRESSION: 1. No biliary ductal dilatation. Possible small common bile duct calculus, measuring 3 mm. 2. Cholelithiasis with mild gallbladder wall thickening. Acute cholecystitis cannot be excluded. If indicated, a hepatobiliary scan could be obtained. ACT 112: Negative or not required by law. Electronically signed by: Chepe Ribeiro M.D. 12/22/2022 7:05 AM EKG - NSR, mildly prominent R wave V1, slight early repol limb leads, no ST changes Code Status & VTE Plan Code Status full PG Care Time/CCT Total # of Minutes Spent Total Time Spent with Patient: Total time spent is greater than 50% in coordination of care (as documented) at patient's floor/unit and/or counseling patient: Coding Level of Care Code 17571 INT INP/OBS CARE 2/55MIN Diagnoses Acute cholecystitis K81.0 Choledocholithiasis K80.50 Abnormal LFTs R79.89 ADHD F90.9 Bipolar disorder F31.9 GERD (gastroesophageal reflux disease) K21.9 Exercise-induced asthma J45.990 DVT prophylaxis Z29.9 Obesity (BMI 30-39.9) E66.9
--- NOTE | 2022-12-22 07:07 | Magnetic Resonance Report ---
MRCP CLINICAL HISTORY: elevated LFTs, gallstones TECHNIQUE: Utilizing a 1.5 Christin magnet and dedicated coil, multiplanar, multiecho imaging of the [facility] abdomen was performed utilizing heavily T2 weighted pulsing sequences without IV contrast. COMPARISON STUDY: CT of the abdomen and pelvis November 18, 2017 and right upper quadrant ultrasound performed earlier today. FINDINGS: There is no intra or extrahepatic biliary ductal dilatation. The common bile duct measures 5 mm in caliber. There is a possible 3 mm T2 hypointense focus within the distal common bile duct. Th is may reflect a calculus. Multiple gallstones within the gallbladder measure up to 2 cm. There is mi ld gallbladder wall thickening. The gallbladder is mildly distended. No hepatic lesions are identifie d on this unenhanced exam. Unenhanced images of the spleen, adrenal glands, kidneys and pancreas are unremarkable. There is no abdominal lymphadenopathy or ascites. Caliber and wall thickness of visuali zed small and large bowel are normal. There is no pancreatic ductal dilatation. IMPRESSION: 1. No biliary ductal dilatation. Possible small common bile duct calculus, measuring 3 mm. 2. Cholelithiasis with mild gallbladder wall thickening. Acute cholecystitis cannot be excluded. If i ndicated, a hepatobiliary scan could be obtained. ACT 112: Negative or not required by law. Electronically signed by: Chepe Ribeiro M.D. 12/22/2022 7:05 AM
--- NOTE | 2022-12-22 08:00 | XRay Report ---
XR chest 1V portable CLINICAL HISTORY: Chest pain, nonspecific TECHNIQUE: Single frontal radiograph of the chest was obtained. Comparison: Comparison is made to chest and abdomen radiograph 06/10/2015 FINDINGS: No lines and tubes are seen. The cardiomediastinal silhouette is normal. The lungs are clear. No evid ence of pleural effusion or pneumothorax. IMPRESSION: No acute chest disease. ACT 112: Negative or not required by law. Electronically signed by: Jimbo Hough M.D. 12/22/2022 7:58 AM
[2022-12-22] MEDS ORDERED: INDOMETHACIN 50 MG SUPP PR ONE (08:21)
[2022-12-22] MEDS: LACTATED RINGER'S 1,000 ML IV SCH (08:30)
--- NOTE | 2022-12-22 08:32 | Gastrointestinal Consultation ---
Date of Consultation December 22, 2022 Assessment & Plan (1) Choledocholithiasis: (2) Acute cholecystitis: Pt is a 32 yo male w epigastric, RUQ abd pain radiating to back, noted to have elevated LFTs and abd US, MRCP finding of gallstones, gallbladder wall thickening suspicious for cholecystitis and CBD stone. - NPO - IV antibiotics - ERCP this afternoon in OR by Dr. Dejesus - Surgery consult for possible cholecystectomy Supervising Physician Co-Signing Physician Notes I saw and evaluated the patient. He presented with abdominal pain and was found to have evidence of choledocholithiasis on MRCP. The patient reports that he has had intermittent abdominal pain that is presented over the last 24 to 48 hours. Physical examination mild scleral icterus Right upper quadrant tenderness noted Impression: Patient presents with signs and symptoms related to choledocholithiasis. We will plan for ERCP for biliary decompression today. We discussed risks to include bleeding infection perforation pain failed biliary cannulation and need for follow-up studies. Plan ERCP today Indocin suppository to be given during the examination given the patient's young age. History of Present Illness Reason for Consultation: CBD stone Requesting Physician: Dr. Dony Santos Attending Physician: Dr. Viri Dejesus History of Present Illness Pt is a 32 yo male w PMHx as listed below who presented to ED w c/o epigastric and RUQ abd pain radiating to back since last night around 7p. He has associated n/v. Denies any changes in bowel habits. No fever, chills. He had what he thought is heartburn symptoms for 8 months now but usually pain resolved after anti-acids. However last night pain didn't resolve. On eval, he was found to be afebrile, wo leukocytosis. LFTs: Tbili 2.3, AST 418, ALT 367, Alk phos 98. Lipase normal. Abd us and MRCP w signs of gallstones, and gallbladder wall thickening, CBD stone of 3mm. Allergies Allergy/AdvReac Type Severity Reaction Status Date / Time morphine AdvReac Unknown N/V Verified 07/12/17 00:21 Home Medications Medication Instructions Recorded Confirmed Type AMPHETAMINE-DEXTROAMPHETAMINE 30MG 30 mg PO DAILY PRN INABILITY TO 11/01/14 History (ADDERALL 30MG) CONCENTRATE ##0 Eszopiclone (Lunesta) 3 mg PO QPM ##0 11/01/14 History LAMOTRIGINE 100 mg PO HS ##0 11/01/14 History Ranitidine (Zantac) 150 mg PO DAILY PRN HEARTBURN #0 06/16/17 History tabs SERTRALINE HCL (ZOLOFT) 100 mg PO QAM #0 tabs 06/16/17 History ALUM & MAG HYDROX-SIMETHICONE 1 dose PO DAILY PRN Indigestion ##0 07/07/17 History (MYLANTA) OXYBUTYNIN CHLORIDE (OXYBUTYNIN 1 tab PO DAILY 14 days #14 tabs 07/13/17 Rx CHLORIDE ER) Tamsulosin HCl 0.4 mg PO QAM 14 days #14 caps 07/13/17 Rx Patient History Medical History ADHD Allergic rhinitis Bipolar disorder Exercise-induced asthma 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 he was younger GERD (gastroesophageal reflux disease) Kidney stone Surgical History H/O nasal septoplasty History of ankle surgery bilateral ankles Family History Denies family history of Coronary heart disease Gall bladder disease Social History Smoking Status: Never smoker Tobacco Type: Smokeless Tobacco (Dip or Chew) Cigarettes Per Day: 1 can chew/day; Hx Alcohol Use: Yes Alcohol Intake Frequency: Monthly or Less Preferred Language: Khmer marital status: Current Living Situation: Spouse current occupational status: employed 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 many Children do You have: 1 Feels Safe at Home: Yes Review of Systems Review of Systems: All systems reviewed & are unremarkable except as noted in HPI & below Physical Exam Constitutional: WD/WN, vitals as above well groomed, cooperative and comfortable Eyes: PERRL, conjunctivae normal, anicteric sclerae ENMT: external ear and nose normal, oropharynx normal Respiratory: normal respiratory effort, lungs clear to auscultation Cardiovascular: RRR, no murmur, no edema Gastrointestinal (Abdomen): normal bowel sounds, soft, nontender, no hepatosplenomegaly Skin: no rashes, warm and dry no jaundice Psychiatric: A+Ox3, euthymic affect Lymphatic: no lymphedema Results & Data ([facility]) Vital Signs (Past 12 Hours) Vital Signs Temp Pulse Resp BP Pulse Ox O2 Del Method 12/22/22 08:09 61 12/22/22 08:00 70 21 94 Room Air 12/22/22 08:00 140/91 12/22/22 07:30 65 18 95 Room Air 12/22/22 07:08 43 L 17 94 Room Air 12/22/22 07:08 130/83 12/22/22 07:00 44 L 18 93 Room Air 12/22/22 04:34 56 L 12/22/22 04:31 88 18 98 Room Air 12/22/22 04:16 36.5 C 112 H 22 153/100 H 99 Room Air
[2022-12-22 08:45] LABS: Partial Thromboplastin Ratio 0.9; Partial Thromboplastin Time 25.1 Seconds (21.0-31.0); Prothrombin Time 10.6 Seconds (9.0-12.0)
[2022-12-22] MEDS ORDERED: PIPERACILLIN/TAZOBACTAM 3.375 GM in DEXTROSE 5% 100 ML IV SCH ×2 (08:45→15:00)
--- NOTE | 2022-12-22 09:50 | History & Physical Bridge Note ---
Date of Service December 22, 2022 History & Physical Bridge Note I have examined the patient, reviewed the History & Physical and in the interval since the performance of the History & Physical I have noted the following changes of clinical significance: no changes noted I discussed proceding with laparoscopic cholecystectomy today after ERCP pt and agree with plan
[2022-12-22] MEDS: PIPERACILLIN/TAZOBACTAM 4.5 GM CI (over 4 hours) IV SCH ×2 (10:23→19:25)
[2022-12-22] MEDS ORDERED: ONDANSETRON INJ 2 MG/ML 2 ML VIAL IV PRN ×3 (10:32→19:00)
[2022-12-22] MEDS ORDERED: HYDROmorphone INJ 0.5 MG/0.5 ML SYR IV PRN ×2 (10:32→19:00)
--- NOTE | 2022-12-22 11:23 | Electrocardiogram Report ---
Test Reason : Blood Pressure : / mmHG Vent. Rate : 070 BPM Atrial Rate : 070 BPM P-R Int : 158 ms QRS Dur : 096 ms QT Int : 374 ms P-R-T Axes : 033 049 013 degrees QTc Int : 403 ms Poor data quality, interpretation may be adversely affected Normal sinus rhythm Normal ECG When compared with ECG of 16-JUN-2017 17:03, No significant change was found Confirmed by Eugenio Christianson ([id number]) on 12/22/2022 11:23:26 AM Referred By: REFERRED SELF Confirmed By:Ascencion Christianson
[2022-12-22] MEDS ORDERED: FAMOTIDINE 20MG/5ML IV PUSH IV ONE (11:38)
[2022-12-22] MEDS: FAMOTIDINE 20 MG in SYRINGE 3 ML IV SCH ×2 (11:40→21:55)
[2022-12-22] MEDS: NICOTINE 7 MG/24 HR TDSY TD SCH (11:44)
[2022-12-22] MEDS: SERTRALINE HCL 100 MG TABLET PO SCH (11:46)
--- NOTE | 2022-12-22 15:05 | Anesthesiology Consultation ---
Date of Service December 22, 2022 Assessment & Plan Chart Review Chart Review: Acceptable Risk for Surgery Consults Requested none ASA ASA2 Proposed Anesthesia Anesthesia Type: General Risk / Benefits Reviewed With: PT / POA / Parent / Guardian, Accepts Plan and Informed Consent Obtained History Surgery Operation Date: 12/22/22 13:10 Proposed Procedures p Endoscopic Retrograde Cholangiopancreatogram - Viri Dejesus DO s Laparoscopic Cholecystectomy - Prince Davis MD, FACS Height/Weight Height: 5 ft 7 in Weight: 106.5 kg Allergies Allergy/AdvReac Type Severity Reaction Status Date / Time morphine AdvReac Unknown N/V Verified 07/12/17 00:21 Medications Home Medications Medication Instructions Recorded Confirmed Last Taken AMPHETAMINE-DEXTROAMPHETAMINE 30MG 30 mg PO DAILY PRN INABILITY TO 11/01/14 Unknown (ADDERALL 30MG) CONCENTRATE ##0 Eszopiclone (Lunesta) 3 mg PO QPM ##0 11/01/14 Unknown LAMOTRIGINE 100 mg PO HS ##0 11/01/14 Unknown Ranitidine (Zantac) 150 mg PO DAILY PRN HEARTBURN #0 06/16/17 Unknown tabs SERTRALINE HCL (ZOLOFT) 100 mg PO QAM #0 tabs 06/16/17 Unknown ALUM & MAG HYDROX-SIMETHICONE 1 dose PO DAILY PRN Indigestion ##0 07/07/17 Unknown (MYLANTA) OXYBUTYNIN CHLORIDE (OXYBUTYNIN 1 tab PO DAILY 14 days #14 tabs 07/13/17 Unknown CHLORIDE ER) Tamsulosin HCl 0.4 mg PO QAM 14 days #14 caps 07/13/17 Unknown Active Medications Generic Name Dose Route Start Last Admin Trade Name Freq PRN Reason Stop Dose Admin Lactated Ringer's 1,000 mls @ 125 mls/hr 12/22/22 07:15 12/22/22 08:30 Lr IV 01/21/23 07:14 125 mls/hr .Q8H RAOUL Administration Piperacillin Sod/Tazobactam 120 mls @ 30 mls/hr 12/22/22 11:00 12/22/22 10:23 Sod 4.5 gm/ Dextrose IV 01/01/23 10:59 30 mls/hr Q8H RAOUL Administration Protocol Famotidine 20 mg/ Syringe 5 mls @ 2.5 mls/min 12/22/22 11:00 12/22/22 11:40 IV 01/21/23 10:59 2.5 mls/min BID RAOUL Administration Miscellaneous 1 each 12/22/22 10:59 12/22/22 11:46 Remove Nicoderm Patch N/A 01/21/23 10:58 Not Given DAILY@0859 RAOUL Nicotine 7 mg 12/22/22 11:00 12/22/22 11:44 Nicotine 7 Mg/24 Hr Tdsy TD 01/21/23 10:59 7 mg QAM RAOUL Administration Sertraline HCl 100 mg 12/22/22 11:10 12/22/22 11:46 Sertraline Hcl 100 Mg Tablet PO 01/21/23 11:09 Not Given QAM RAOUL NPO Date Last Intake of Fluids: 12/22/22 Time Last Intake of Fluids: 02:00 Date Last Intake of Solids: 12/21/22 Time Last Intake of Solids: 20:00 Past Medical History Medical History ADHD Allergic rhinitis Bipolar disorder Exercise-induced asthma mainly when he was younger GERD (gastroesophageal reflux disease) Kidney stone Exercise / Class Metabolic Activity II 4-5 Yardwork/Stairs/Walk up hill Past Family History Family History Denies family history of Coronary heart disease Gall bladder disease Past Surgical History Surgical History H/O nasal septoplasty History of ankle surgery bilateral ankles Past Anesthesia History No Hx of Anesthesia Complications and No Family Hx of Anesthesia Complications History of PONV No Hx of PONV and No Hx of Motion Sickness Social History Smoking Status: Never smoker Smoking cigarettes per day: 1 can chew/day Hx Alcohol Use: Yes Physical Exam Vital Signs Last Vital Signs Temp 36.8 C 12/22/22 13:28 Pulse 50 L 12/22/22 13:28 Resp 14 12/22/22 13:28 BP 113/85 12/22/22 13:28 Pulse Ox 98 12/22/22 13:28 O2 Del Method Room Air 12/22/22 13:28 Constitutional + obese ENMT Mouth: no TMJ abnormality Thyromental Distance: > or= 3.5 Finger Breadths Mallampati Class: III Neck normal visual inspection, trachea midline and + facial hair; neck extension not limited Respiratory normal respiratory effort Auscultation: lungs clear to auscultation bilaterally Cardiovascular Rate/Rhythm: regular rate and regular rhythm Heart Sounds: no murmur Musculoskeletal Spine: normal cervical ROM Extremities: full ROM of extremities Neurologic moves all extremities Psychiatric Orientation: alert and oriented x 3 Testing Laboratory Results 12/22/22 04:35 12/22/22 04:35 PT 10.6 Seconds (9.0-12.0) 12/22/22 04:36 INR 1.0 (0.9-1.1) 12/22/22 04:36 APTT 25.1 Seconds (21.0-31.0) 12/22/22 04:36
[2022-12-22] MEDS ORDERED: ePHEDrine sulfate 50 MG/ML AMP IV PRN (15:06)
[2022-12-22] MEDS ORDERED: MEPERIDINE HCL 25 MG/ML CARP/VIAL IV PRN (15:06)
[2022-12-22] MEDS ORDERED: METOCLOPRAMIDE HCL INJ 5 MG/ML 2 ML VIAL IV PRN (15:06)
[2022-12-22] MEDS ORDERED: HYDROmorphone INJ 2 MG/ML SYR/VIAL IV PRN (15:06)
[2022-12-22] MEDS ORDERED: ATROPINE SULFATE 0.1 MG/ML 10ML SYR IV PRN (15:06)
[2022-12-22] MEDS ORDERED: DEXAMETHASONE SOD INJ 4 MG/ML VIAL ONE (15:39)
[2022-12-22] MEDS ORDERED: PROPOFOL IV EMULSION 10 MG/ML 20 ML VIAL IV ONE (15:39)
[2022-12-22] MEDS ORDERED: ROCURONIUM BROMIDE 10 MG/ML 5 ML VIAL IV ONE (15:39)
[2022-12-22] MEDS ORDERED: LIDOCAINE 2% MPF LOCAL 5 ML VIAL INFIL ONE (15:39)
[2022-12-22] MEDS ORDERED: ONDANSETRON INJ 2 MG/ML 2 ML VIAL ONE (15:39)
[2022-12-22] MEDS ORDERED: MIDAZOLAM HCL 1 MG/ML 2ML VIAL ONE (15:40)
[2022-12-22] MEDS ORDERED: fentaNYL citrate 100 MCG/2 ML VIAL ONE ×2 (15:40→16:23)
[2022-12-22] MEDS ORDERED: BUPIVACAINE 0.5 % 5 MG/1 ML MPF 30ML VIAL ONE (15:42)
--- NOTE | 2022-12-22 16:23 | Post Operative Brief Note ---
Immediate Post Op Note v1 Date of Surgery December 22, 2022 Pre & Post Diagnosis Operation Date: 12/22/22 13:10 Pre-Op Diagnosis: Acute Cholecystitis, Choledocolithiasis Post-Op Diagnosis: Acute Cholecystitis, Choledocolithiasis I identified the patient and participated in the time-out.: Yes Procedure Operation Date: 12/22/22 13:10 Actual Procedures s Endoscopic Retrograde Cholangiopancreatography in Operating Room(Not Applicable) - Viri Dejesus, Surgeon Viri Dejesus, DO Corporate Travel Coordinator none Estimated Blood Loss 0 Findings Consistent with Post-Op Diagnosis
--- NOTE | 2022-12-22 16:23 | GI REPORT ---
Patient Name: Isma Zaragoza Procedure Date: 12/22/2022 3:31 PM Date of : 1990 Admit Type: Inpatient Age: 32 Gender: Male Attending MD: Viri Dejesus DO, Procedure: ERCP Providers: Viri Dejesus DO Referring MD: Dony Stein, Prince Davis M.d., Steven Dunham Indications: Abdominal pain of suspected biliary origin, Abnormal MRCP Medicines: General Anesthesia Complications: No immediate complications. Estimated blood loss: Minimal. Estimated Blood Loss: Estimated blood loss was minimal. Procedure: Pre-Anesthesia Assessment: - Prior to the procedure, a History and Physical was performed, and patient medications, allergies and sensitivities were reviewed. The patient's tolerance of previous anesthesia was reviewed. - The risks and benefits of the procedure and the sedation options and risks were discussed with the patient. All questions were answered and informed consent was obtained. - Patient identification and proposed procedure were verified prior to the procedure by the physician, the nurse and the instrument repairer helper. The procedure was verified in the procedure room. - Pre-procedure physical examination revealed no contraindications to sedation. - ASA Grade Assessment: II - A patient with mild systemic disease. - After reviewing the risks and benefits, the patient was deemed in satisfactory condition to undergo the procedure. - The anesthesia plan was to use general anesthesia. - Immediately prior to administration of medications, the patient was re-assessed for adequacy to receive sedatives. - The heart rate, respiratory rate, oxygen saturations, blood pressure, adequacy of pulmonary ventilation, and response to care were monitored throughout the procedure. - The physical status of the patient was re-assessed after the procedure. After obtaining informed consent, the scope was passed under direct vision. Throughout the procedure, the patient's blood pressure, pulse, and oxygen saturations were monitored continuously. The Duodenoscope was introduced through the mouth, and advanced to the duodenum and used to inject contrast into the bile duct. The ERCP was accomplished without difficulty. The patient tolerated the procedure well. Findings: The freight traffic consultant film was normal. The esophagus was successfully intubated under direct vision without detailed examination of the pharynx, larynx, and associated structures, and upper GI tract. The upper GI tract was grossly normal. The major papilla was normal. The bile duct was deeply cannulated with the short-nosed traction sphincterotome and guidewire (PD not injected or cannulated). Contrast was injected. I personally interpreted the bile duct images. Contrast extended to the hepatic ducts. The lower third of the main bile duct contained filling defect(s) thought to be a stone. The biliary tree was not dilated and the cystic duct appeared patent. Biliary sphincterotomy was made with a Fusion OMNI sphincterotome using ERBE electrocautery. There was no post-sphincterotomy bleeding. To discover objects, the biliary tree was swept with an 8.5 mm balloon starting at the bifurcation. Two stones were removed. No stones remained. One 10 Fr by 7 cm biliary stent with a single external flap and a single internal flap was placed 7 cm into the common bile duct. Bile flowed through the stent. The stent was in good position. Indomethacin 100 mg was given via suppository to decrease the risk of post-ERCP pancreatitis (PEP). The endoscope was withdrawn from the patient. Impression: - The major papilla appeared normal. - A filling defect consistent with a stone was seen on the cholangiogram. - Choledocholithiasis was found. Complete removal was accomplished by biliary sphincterotomy and balloon extraction. - A biliary sphincterotomy was performed. - The biliary tree was swept. - One biliary stent was placed into the common bile duct. - Indomethacin given to decrease risk of post-ERCP pancreatitis. Recommendation: - Avoid aspirin and nonsteroidal anti-inflammatory medicines for 1 week. - Clear liquid diet today. - Repeat ERCP in 6 weeks to remove stent. - Cholecystectomy as planned with Dr. Davis. Viri Dejesus D.O. Viri Dejesus, 12/22/2022 4:22:38 PM This report has been signed electronically. Note Initiated On: 12/22/2022 3:31 PM Number of Addenda: 0 I attest to the content of the Intraoperative Record and orders documented therein, exceptions below {[id number]}
--- NOTE | 2022-12-22 16:24 | Communication Note ---
Date of Service: December 22, 2022 Patient underwent ERCP this afternoon for an abnormal appearing MRCP suspicious for choledocholithiasis. He was found to have 2 small stones within the distal common bile duct. Biliary sphincterotomy was performed and a balloon sweeping was performed with removal of the stones. A prophylactic biliary stent was placed as the patient was jaundiced today. Recommendations Patient to have cholecystectomy today with Dr. Davis repeat ERCP in 6 weeks for removal of biliary stent Consider a 10-day course of antibiotic coverage Continue IV hydration overnight Patient may have clear liquids from a GI perspective Please call with questions or concerns
[2022-12-22] MEDS ORDERED: KETAMINE 50 MG/5 ML SYRINGE ONE (16:46)
[2022-12-22] MEDS ORDERED: SUGAMMADEX SODIUM 200 MG/2 ML VIAL IV ONE (17:02)
[2022-12-22] MEDS ORDERED: ACETAMINOPHEN 1000 MG/100 ML IV IV ONE (17:05)
[2022-12-22] MEDS ORDERED: ACETAMINOPHEN 1,000 MG/100 ML VIAL IV ONE (17:06)
--- NOTE | 2022-12-22 17:06 | Post Operative Brief Note ---
PG Immediate Post Op with CF Date of Surgery December 22, 2022 Pre & Post Diagnosis Operation Date: 12/22/22 13:10 Pre-Op Diagnosis: Acute Cholecystitis, Choledocholithiasis Post-Op Diagnosis: Acute Cholecystitis, Choledocholithiasis I identified the patient and participated in the time-out.: Yes Procedure Operation Date: 12/22/22 13:10 Actual Procedures s Endoscopic Retrograde Cholangiopancreatography in Operating Room(Not Applicable) - Viri Dejesus DO p Laparoscopic Cholecystectomy(Not Applicable) - Prince Davis MD, FACS Surgeon Prinec Davis MD, FACS Funeral Driver none, K Balbir for laparoscopic cholecystectomy Estimated Blood Loss 0 Findings Consistent with Post-Op Diagnosis Severe acute cholecystitis Specimens Specimen Description: A. Gallbladder
--- NOTE | 2022-12-22 17:44 | Operative Report (OR) ---
DATE OF OPERATION: 12/22/2022. NAME OF OPERATION: Laparoscopic cholecystectomy. PREOPERATIVE DIAGNOSIS: Acute cholecystitis. POSTOPERATIVE DIAGNOSIS: Acute cholecystitis. STAFF SURGEON: Prince Davis MD. ANIMAL CONTROL SUPERVISOR: Xochilt Mcgregor PA-C. ANESTHESIA: General. DESCRIPTION OF PROCEDURE: The patient was in the operating room. He had undergone ERCP. His abdome n was prepped and draped in the usual fashion. Pneumatic stockings and orogastric tube were in place . A 0.5% plain Marcaine was used to anesthetize all incisions. An incision was made above the umbil icus, carrying dissection down, identifying the fascia, placing a Veress needle, producing pneumoperi toneum. My management assistant helped with prepping, draping, removal of the gallbladder, and closure of the w ounds. An 11 mm port was placed at the umbilical site and then under visualization, three 5 mm ports were placed, one cephalad and two laterally. The patient did have significant adipose tissue in the abdominal wall. The gallbladder was severely distended and thickened. The bile was sludge-like. I t was aspirated somewhat. Dissection was carried out to the aide hepatis, noting severe edema. Cys tic duct and cystic artery were identified, clipped, and transected and the gallbladder was dissected away from the liver bed in the usual fashion. Gallbladder was placed in an Endobag and then after a ppropriate irrigation and hemostasis, the Endobag was removed through the umbilical site. I did have to enlarge the fascial defect somewhat to remove the gallbladder. The fascia at the umbilicus was c losed using 0 PDS suture. The skin was reapproximated using subcuticular 4-0 Monocryl. Dermabond ap plied and the patient was transferred to the recovery room in stable condition. Job ID: [id number]
--- NOTE | 2022-12-22 18:09 | Anesthesiology Progress Note ---
Date of Service December 22, 2022 Anesthesia Post Procedure Vital Signs Vital Signs: Temp Pulse Pulse Pulse Resp BP BP 12/22/22 18:05 36.7 C 48 L 19 143/90 H 12/22/22 17:55 55 L 16 139/89 12/22/22 17:45 52 L 17 142/96 H 12/22/22 17:35 50 L 16 148/100 H 12/22/22 17:26 36.0 C L 76 20 135/87 12/22/22 13:28 36.8 C 50 L 14 12/22/22 13:13 12/22/22 13:00 55 L 12/22/22 13:00 129/90 12/22/22 12:30 46 L 12/22/22 12:00 42 L 12/22/22 12:00 129/88 12/22/22 11:30 47 L 20 12/22/22 11:00 65 12 12/22/22 11:00 141/87 H 12/22/22 10:30 46 L 16 12/22/22 10:33 12/22/22 10:00 65 16 12/22/22 10:00 119/90 12/22/22 09:30 40 L 13 12/22/22 09:00 47 L 16 12/22/22 09:00 129/85 12/22/22 08:30 60 16 12/22/22 08:09 61 12/22/22 08:00 70 21 12/22/22 08:00 140/91 12/22/22 07:30 65 18 12/22/22 07:08 43 L 17 12/22/22 07:08 130/83 12/22/22 07:00 44 L 18 12/22/22 04:34 56 L 12/22/22 04:31 88 18 12/22/22 04:16 36.5 C 112 H 22 153/100 H BP Pulse Ox O2 Del Method O2 Flow Rate 12/22/22 18:05 96 Nasal Cannula 2 12/22/22 17:55 94 Nasal Cannula 2 12/22/22 17:45 94 Oxymask 5 12/22/22 17:35 94 Oxymask 10 12/22/22 17:26 96 Oxymask 10 12/22/22 13:28 113/85 98 Room Air 12/22/22 13:13 Room Air 12/22/22 13:00 95 Room Air 12/22/22 13:00 12/22/22 12:30 93 Room Air 12/22/22 12:00 95 Room Air 12/22/22 12:00 12/22/22 11:30 95 Room Air 12/22/22 11:00 95 Room Air 12/22/22 11:00 12/22/22 10:30 94 Room Air 12/22/22 10:33 Room Air 12/22/22 10:00 94 Room Air 12/22/22 10:00 12/22/22 09:30 95 Room Air 12/22/22 09:00 94 Room Air 12/22/22 09:00 12/22/22 08:30 96 Room Air 12/22/22 08:09 12/22/22 08:00 94 Room Air 12/22/22 08:00 12/22/22 07:30 95 Room Air 12/22/22 07:08 94 Room Air 12/22/22 07:08 12/22/22 07:00 93 Room Air 12/22/22 04:34 12/22/22 04:31 98 Room Air 12/22/22 04:16 99 Room Air Pain Intensity Chest: Pain Intensity: 7 Abdomen: Pain Intensity: 3 Transfer of Care Handoff Completed per policy Notes Mental Status: alert / awake / arousable Patient Amnestic to Procedure: Yes Nausea / Vomiting: adequately controlled Pain: adequately controlled Airway Patency, RR, SpO2: stable & adequate BP & HR: stable & adequate Hydration State: stable & adequate Anesthetic Complications: no major complications apparent and Pt Satisfied with anesthetic care
--- NOTE | 2022-12-22 18:53 | Fluoroscopy Report ---
[place] ERCP biliary ductal CLINICAL HISTORY: for ercp. Duct exploration. Elevated LFTs. Gallstones. COMPARISON STUDY: MRCP 12/22/2022. FLUOROSCOPY TIME: 17 seconds FLUOROSCOPY IMAGES: 5 EXPOSURE DOSE: Jim r =5.6 mGy FINDINGS: The ampulla was cannulated and contrast was injected into the common bile duct. A common bi le duct stent was placed and appears in good position. IMPRESSION: Fluoroscopic assistance as above. ACT 112: Negative or not required by law. Electronically signed by: Anshul Clemente M.D. 12/22/2022 6:52 PM
[2022-12-22] MEDS ORDERED: ACETAMINOPHEN 325 MG TAB PO PRN (19:00)
[2022-12-22] MEDS ORDERED: COUGH DROP (SUGAR FREE) LOZ 24 LOZ/1 BOX BUCCAL PRN (19:07)
[2022-12-22] MEDS ORDERED: Nursing to Pharmacy Communication SCH (19:15)
[2022-12-22] MEDS: SODIUM CHLORIDE 0.9% 1000ML 1,000 ML IV SCH (19:23)
[2022-12-22] MEDS: oxyCODONE HCL IR 5 MG TAB (IMMEDIATE RELEASE) PO PRN (19:46)
[2022-12-22] MEDS: ESZOPICLONE 1 MG TAB PO SCH (21:55)
[2022-12-22] MEDS: lamoTRIgine 100 MG TAB PO SCH (21:55)
[2022-12-22] MEDS: DOCUSATE SODIUM/SENNA 50/8.6MG TAB PO SCH (21:55)
[2022-12-23] MEDS: LACTATED RINGER'S 1,000 ML IV SCH (01:24)
[2022-12-23] MEDS: PIPERACILLIN/TAZOBACTAM 4.5 GM CI (over 4 hours) IV SCH ×3 (02:06→19:19)
[2022-12-23] MEDS: oxyCODONE HCL IR 5 MG TAB (IMMEDIATE RELEASE) PO PRN ×3 (04:59→17:58)
[2022-12-23 06:10] LABS: Basophils # (auto) 0.02 K/uL (0-0.2); Basophils % (auto) 0.2 %; Eosinophils # (auto) 0.01 K/uL (0-0.50); Eosinophils % (auto) 0.1 %; Hematocrit (blood only) 40.4 % (42.0-52.0); Hemoglobin 13.8 g/dl (14.0-18.0); Immature Granulocytes # (auto) 0.04 K/uL (0.01-0.20); Immature Granulocytes % (auto) 0.4 %; Lymphocytes # (auto) 1.04 K/uL (1.2-3.4); Lymphocytes % (auto) 9.8 %; Mean Corpuscular Hemoglobin 29.9 pg (25.0-34.0); Mean Corpuscular Hgb Conc 34.2 g/dL (32.0-36.0); Mean Corpuscular Volume 87.6 fL (80.0-100.0); Monocytes # (auto) 0.54 K/uL (0.11-0.59); Monocytes % (auto) 5.1 %; Neutrophils # (auto) 8.95 K/uL (1.40-6.50); Neutrophils % (auto) 84.4 %; Platelet Count 189 K/uL (130-400); RDW Coefficient of Variation 12.6 % (11.5-14.5); RDW Standard Deviation 40.5 fL (36.4-46.3); Red Blood Count 4.61 M/uL (4.70-6.10)
--- NOTE | 2022-12-23 06:29 | Surgery Progress Note ---
Date of Service December 23, 2022 Assessment & Plan (1) S/P laparoscopic cholecystectomy: Plan: Patient status post ERCP and laparoscopic cholecystectomy He had severe acute cholecystitis indicated by severe edema He has required some oxygen and IV pain medication We will advance diet from a surgical standpoint Discharge home when medically stable without oxygen We will need p.o. pain medication and antibiotics Admission and Anticipated Discharge Date Admission Date: December 22, 2022 Results & Data ([facility]) Vital Signs (Past 12 Hours) Vital Signs Temp Pulse Pulse Resp BP Pulse Ox O2 Del Method 12/23/22 04:56 36.8 C 60 16 118/70 98 Nasal Cannula 12/23/22 00:44 36.8 C 58 L 16 128/76 96 Nasal Cannula 12/22/22 19:30 Nasal Cannula 12/22/22 20:30 36.8 C 59 L 18 133/81 96 Nasal Cannula 12/22/22 19:33 36.7 C 53 L 18 125/80 96 Nasal Cannula 12/22/22 19:09 36.4 C L 45 L 16 136/88 95 Nasal Cannula 12/22/22 18:35 37.0 C 50 L 17 146/94 H 94 Nasal Cannula O2 Flow Rate 12/23/22 04:56 2 12/23/22 00:44 2 12/22/22 19:30 2 12/22/22 20:30 2 12/22/22 19:33 2 12/22/22 19:09 1 12/22/22 18:35 2 PG Care Time/CCT Total # of Minutes Spent Total Time Spent with Patient: Total time spent is greater than 50% in coordination of care (as documented) at patient's floor/unit and/or counseling patient: Coding Level of Care Code 90597 Post Operative Follow-Up Diagnoses S/P laparoscopic cholecystectomy Z90.49
[2022-12-23 06:35] LABS: Calcium 8.8 mg/dl (8.5-10.1); Creatinine Clr Calc Pharmacy 142.8 ml/min; Est GFR (African American) 127.9 ml/min; Est GFR (Non-African American) 110.3 ml/min; Potassium 4.5 mmol/L (3.5-5.1)
[2022-12-23 06:54] LABS: Albumin Globulin Ratio 1.7 (0.9-2); Albumin Level 3.9 gm/dl (3.4-5.0); Bilirubin,Total 2.8 mg/dl (0.2-1.0); Globulin 2.3 gm/dl (2.5-4.0); Phosphorus 4.6 mg/dl (2.5-4.9); Total Protein 6.2 gm/dl (6.0-8.3)
[2022-12-23] MEDS: NICOTINE 7 MG/24 HR TDSY TD SCH (09:21)
[2022-12-23] MEDS: DOCUSATE SODIUM/SENNA 50/8.6MG TAB PO SCH ×2 (09:24→21:10)
[2022-12-23] MEDS: FAMOTIDINE 20 MG in SYRINGE 3 ML IV SCH (09:24)
[2022-12-23] MEDS: SERTRALINE HCL 100 MG TABLET PO SCH (09:25)
--- NOTE | 2022-12-23 10:05 | Gastroenterology Progress Note ---
Date of Service December 23, 2022 Assessment & Plan (1) Choledocholithiasis: (2) Acute cholecystitis: Plan: Pt is a 32 yo male w epigastric, RUQ abd pain radiating to back, noted to have elevated LFTs and abd US, MRCP finding of gallstones, gallbladder wall thicke lee suspicious for cholecystitis and CBD stone. S/P ERCP w choledocholithiasis removal, biliary sphincterectomy and biliary stent placement, followed by lap cholecystectomy on 12/22. AST trending down, rest of LFTs similar. Clinically doing quite well, tolerated solid meals, no longer requiring O2. + abd pain mostly around incision areas. - Low fat diet - Antibiotics coverage x 7 days - Avoid ASA and NSAIDs x 1 week after biliary sphincterectomy - Repeat ERCP in 6 weeks to remove biliary stent - Trend LFTs - Recall GI prn Admission and Anticipated Discharge Date Admission Date: December 22, 2022 Supervising Physician Co-Signing Physician Notes Attending attestation I have seen, examined this patient, and agree with the findings and above by our mid-level provider SANTINO Simons, with the following additions: Pain has improved S/P ERCP for CBD stones Repeat ERCP to be arranged for stent removal Subjective Patient reports having generalized abdominal pain, mostly around incision area. Denies any nausea or vomiting. Tolerated solid breakfast. Tried to have BM today but cannot pass stools, is passing slight flatus Review of Systems Review of Systems: All systems reviewed & are unremarkable except as noted in HPI & below Physical Exam Constitutional: WD/WN, vitals as above well groomed, cooperative and comfortable Eyes: PERRL, conjunctivae normal, anicteric sclerae ENMT: external ear and nose normal, oropharynx normal Respiratory: normal respiratory effort, lungs clear to auscultation Cardiovascular: RRR, no murmur, no edema Gastrointestinal (Abdomen): Generalized TTP, surgical incision areas CDI, BS present. Skin: no rashes, warm and dry Psychiatric: A+Ox3, euthymic affect Lymphatic: no lymphedema Results & Data ([facility]) Vital Signs (Past 12 Hours) Vital Signs Temp Pulse Resp BP Pulse Ox O2 Del Method O2 Flow Rate 12/23/22 07:36 36.4 C L 54 L 17 111/71 96 Nasal Cannula 1 12/23/22 04:56 36.8 C 60 16 118/70 98 Nasal Cannula 2 12/23/22 00:44 36.8 C 58 L 16 128/76 96 Nasal Cannula 2
[2022-12-23 12:13] LABS: HBSAG NON-REACTIVE (NON-REACTIVE); Hepatitis A Antibody IgM NON-REACTIVE (NON-REACTIVE); Hepatitis B Core Antibody IgM NON-REACTIVE (NON-REACTIVE)
[2022-12-23] MEDS: POLYETHYLENE (MIRALAX) 17 GM PACK PO SCH (13:28)
--- NOTE | 2022-12-23 13:35 | Hospitalist Progress Note ---
Date of Service December 23, 2022 Assessment & Plan (1) Acute cholecystitis: Plan: Admitted on account of abdominal pains Clinical history, exam, labs, and imaging studies highly suggestive of acute cholecystitis and choledocholithiasis He is now day 1 S/P ERCP w choledocholithiasis removal, biliary sphincterectomy and biliary stent placement, followed by lap cholecystectomy Appreciate gen surgery continue antibiotics cultures negative so far pain is under fair control (2) Choledocholithiasis: Plan: He is now day 1 S/P ERCP w choledocholithiasis removal, biliary sphincterectomy and biliary stent placement, followed by lap cholecystectomy Appreciate GI Will need another ERCP in 6 weeks for stent removal (3) Abnormal LFTs: Plan: some improvement after surgery and ERCP (4) ADHD: Plan: Hold his stimulant medication while here. (5) Bipolar disorder: Plan: Controlled, no recent yolanda. Continue lamictal. Continue zoloft. Continue lunesta. (6) GERD (gastroesophageal reflux disease): Plan: Start pepcid 20mg IV BID. (7) Exercise-induced asthma: Plan: No recent issues. No recent albuterol use. Lungs clear; O2 sats wnl. (8) DVT prophylaxis: Plan: scd (9) Obesity (BMI 30-39.9): Plan: BMI 36. Plan Hopefully d/c in the next 24 hrs Admission and Anticipated Discharge Date Admission Date: December 22, 2022 Subjective patient seen and examined, he is stable post surgery, pain is under fair control Review of Systems Review of Systems: All systems reviewed are negative, apart from the ones contained in the history. Physical Exam Physical Exam: The patient is awake, alert and oriented 3, well developed and well nourished, normocephalic and atraumatic, lying in bed and in no acute distress. HEENT--PERRL, EOMI, mucous membranes and oropharynx mildly dry Neck--supple. No JVD. No bruits. Thyroid normal, trachea midline, no adenopathy. Heart--normal S1 and S2. No murmurs, rubs or gallops. Lungs--clear bilaterally, no respiratory distress, no accessory muscle use. Abdomen--normal bowel sounds and soft. Mild epigastric and left sided abdominal pain Extremities--no cyanosis or clubbing. No edema. Dermatologic--normal skin turgor, normal color, no abnormal lymph nodes, no rash. Neurologic--cranial nerves II through XII grossly intact. Rheumatologic--normal range of motion. Psychiatric--normal affect. Results & Data Results & Data ([facility]) Vital Signs (Past 12 Hours) Vital Signs Temp Pulse Pulse Resp BP Pulse Ox O2 Del Method 12/23/22 11:37 98.1 F 45 L 62 17 104/67 95 12/23/22 11:07 98.1 F 62 17 104/67 95 Room Air 12/23/22 07:36 97.5 F L 54 L 17 111/71 96 Nasal Cannula 12/23/22 04:56 98.2 F 60 16 118/70 98 Nasal Cannula O2 Flow Rate 12/23/22 11:37 12/23/22 11:07 12/23/22 07:36 1 12/23/22 04:56 2 PG Care Time/CCT Total # of Minutes Spent Total Time Spent with Patient: Total time spent is greater than 50% in coordination of care (as documented) at patient's floor/unit and/or counseling patient: Coding Level of Care Code 62828 SUB INP/OBS CARE 2/35MIN Diagnoses Acute cholecystitis K81.0 Choledocholithiasis K80.50 Abnormal LFTs R79.89 ADHD F90.9 Bipolar disorder F31.9 GERD (gastroesophageal reflux disease) K21.9 Exercise-induced asthma J45.990 DVT prophylaxis Z29.9 Obesity (BMI 30-39.9) E66.9 Time Spent (min) 35
[2022-12-23] MEDS ORDERED: Nursing to Pharmacy Communication SCH (19:45)
[2022-12-23] MEDS: ESZOPICLONE 1 MG TAB PO SCH (21:10)
[2022-12-23] MEDS: FAMOTIDINE 20 MG TAB PO SCH (21:10)
[2022-12-23] MEDS: lamoTRIgine 100 MG TAB PO SCH (21:10)
[2022-12-23] MEDS: SODIUM CHLORIDE 0.9% 1000ML 1,000 ML IV SCH (23:25)
[2022-12-24] MEDS: PIPERACILLIN/TAZOBACTAM 4.5 GM CI (over 4 hours) IV SCH ×2 (01:55→09:59)
[2022-12-24] MEDS: SERTRALINE HCL 100 MG TABLET PO SCH (07:49)
[2022-12-24] MEDS: POLYETHYLENE (MIRALAX) 17 GM PACK PO SCH (07:50)
[2022-12-24] MEDS: FAMOTIDINE 20 MG TAB PO SCH (07:50)
[2022-12-24] MEDS: DOCUSATE SODIUM/SENNA 50/8.6MG TAB PO SCH (07:50)
[2022-12-24] MEDS: NICOTINE 7 MG/24 HR TDSY TD SCH (07:50)
[2022-12-24 08:56] LABS: Hematocrit (blood only) 36.9 % (42.0-52.0); Hemoglobin 12.5 g/dl (14.0-18.0); Mean Corpuscular Hemoglobin 30.6 pg (25.0-34.0); Mean Corpuscular Hgb Conc 33.9 g/dL (32.0-36.0); Mean Corpuscular Volume 90.2 fL (80.0-100.0); Mean Platelet Volume 10.1 fL (9.4-12.4); Platelet Count 168 K/uL (130-400); RDW Coefficient of Variation 13.2 % (11.5-14.5); RDW Standard Deviation 43.4 fL (36.4-46.3); Red Blood Count 4.09 M/uL (4.70-6.10); White Blood Count 10.17 K/ul (4.8-10.8)
[2022-12-24 09:15] LABS: BUN Creatinine Ratio 13.3 (10-20); Calcium 8.4 mg/dl (8.5-10.1); Creatinine Clr Calc Pharmacy 144.4 ml/min; Est GFR (African American) 129.6 ml/min; Est GFR (Non-African American) 111.8 ml/min; Potassium 3.7 mmol/L (3.5-5.1)
[2022-12-24] MEDS ORDERED: MAGNESIUM HYDROXIDE SUSP 30 ML UDC PO ONE (09:48)
--- NOTE | 2022-12-24 09:53 | Surgery Progress Note ---
Date of Service December 24, 2022 Assessment & Plan (1) S/P laparoscopic cholecystectomy: Plan: Patient seems to be doing better Stable for discharge from surgical standpoint Put instructions in the discharge for Senokot-S and milk of magnesia Also put in prescriptions for hydrocodone/acetaminophen and Augmentin Instructions to call the office for follow-up in 2 to 3 weeks Admission and Anticipated Discharge Date Admission Date: December 22, 2022 Results & Data ([facility]) Vital Signs (Past 12 Hours) Vital Signs BP O2 Del Method 12/24/22 07:35 115/71 Room Air PG Care Time/CCT Total # of Minutes Spent Total Time Spent with Patient: Total time spent is greater than 50% in coordination of care (as documented) at patient's floor/unit and/or counseling patient: Coding Level of Care Code 14387 Post Operative Follow-Up Diagnoses S/P laparoscopic cholecystectomy Z90.49
[2022-12-24] MEDS ORDERED: bisacodyL 10 MG SUPP PR STA (10:11)
[2022-12-24] MEDS ORDERED: ALUMINUM/MAGNESIUM SUSP 18 ML, LIDOCAINE VISCOUS 2% SOLN 6 ML, BARCODE IDENTIFIER 1 EACH PO ONE (10:30)
[2022-12-24] MEDS: oxyCODONE HCL IR 5 MG TAB (IMMEDIATE RELEASE) PO PRN (12:44)
--- NOTE | 2022-12-24 13:20 | Discharge Summary ---
Date of Service December 24, 2022 Admission HPI Per Admitting Provider 32yo male with past h/o kidney stones s/p lithotripsy, bipolar disorder, ADHD, and GERD presents with the acute onset of severe upper abdominal pain beginning early evening on 12/21/22. Patient states he was feeling well and in his usual health yesterday. He and his ate strombolis for dinner late afternoon and within a couple of hours the abdominal pain began. He had associated vomiting. Some of the pain radiated to the back. Retrospectively he has had similar episodes like this over the last 4-6 months including an abdominal pain episode that caused him to come home early from work one time. He thought these episodes were from his GERD for which he takes prn pepcid. The pain persisted all evening and into the early AM hours of 12/22/22. Thus, he finally came to the ER for evaluation. Denies any fevers or chills. Denies chest pain or dyspnea. Denies diarrhea. Since coming to the ER and receiving IV narcotics he is more comfortable. He mentions he had considerable pain during his RUQ u/s. ER course - IV fluid bolus; IV zosyn x 1; zofran x 1; fentanyl IV RUQ u/s, MRCP Principal Diagnosis acute cholecystitis, choledocholithiasis Discharge Exam The patient is awake, alert and oriented 3, well developed and well nourished, normocephalic and atraumatic, lying in bed and in no acute distress. HEENT--PERRL, EOMI, mucous membranes and oropharynx mildly dry Neck--supple. No JVD. No bruits. Thyroid normal, trachea midline, no adenopathy. Heart--normal S1 and S2. No murmurs, rubs or gallops. Lungs--clear bilaterally, no respiratory distress, no accessory muscle use. Abdomen--normal bowel sounds and soft. Mild epigastric and left sided abdominal pain Extremities--no cyanosis or clubbing. No edema. Dermatologic--normal skin turgor, normal color, no abnormal lymph nodes, no rash. Neurologic--cranial nerves II through XII grossly intact. Rheumatologic--normal range of motion. Psychiatric--normal affect. Discharge Data Allergies Allergy/AdvReac Type Severity Reaction Status Date / Time morphine AdvReac Unknown N/V Verified 07/12/17 00:21 Consultations 12/22/22 05:45 ED Decision to Admit Stat 12/22/22 10:32 Consult Gastroenterology Routine Consult General Surgery Routine Procedures Performed Operation Date: 12/22/22 13:10 Actual Procedures s Endoscopic Retrograde Cholangiopancreatography in Operating Room(Not Applicable) - Viri Dejesus, DO p Laparoscopic Cholecystectomy(Not Applicable) - Prince Davis MD, FACS Ordered Studies 12/22/22 04:23 US gallbladder Urgent 12/22/22 05:46 MR MRCP Stat 12/22/22 14:30 FL ERCP biliary ductal Routine Hospital Course (1) Acute cholecystitis: Admitted on account of abdominal pains Clinical history, exam, labs, and imaging studies highly suggestive of acute cholecystitis and choledocholithiasis He is now day 1 S/P ERCP w choledocholithiasis removal, biliary sphincterectomy and biliary stent placement, followed by lap cholecystectomy Appreciate gen surgery continue antibiotics cultures negative so far pain is under fair control d/c home (2) Choledocholithiasis: He is now day 1 S/P ERCP w choledocholithiasis removal, biliary sphincterectomy and biliary stent placement, followed by lap cholecystectomy Appreciate GI Will need another ERCP in 6 weeks for stent removal (3) Abnormal LFTs: some improvement after surgery and ERCP (4) ADHD: Hold his stimulant medication while here. (5) Bipolar disorder: Controlled, no recent yolanda. Continue lamictal. Continue zoloft. Continue lunesta. (6) GERD (gastroesophageal reflux disease): Start pepcid 20mg IV BID. (7) Exercise-induced asthma: No recent issues. No recent albuterol use. Lungs clear; O2 sats wnl. (8) DVT prophylaxis: scd (9) Obesity (BMI 30-39.9): BMI 36. Plan d/c home Total Time Total Time Spent Total Time Spent (In Minutes): 35 Discharge Plan Discharge Items Patient Disposition: Home - Self-Care Reason For Visit: ACUTE CHOLECYSTITIS, SUSPECTED CHOLEDOCHOLITHIASIS Discharge Diagnosis: acute cholecystitis Condition on Discharge: Good Activity: Per Instructions section Activity Comment: light activity for 4 weeks Lifting: No more than 10 pounds Bathing Comment: may shower; no soaking in tubs/pools Sexual Activity: When tolerated Exercise/Sports: Wait until after follow-up appointment Exercise Comment: wait 4 weeks Driving/Machine Use: no driving if taking any narcotics for pain Non-emergency contact: Primary Care Provider and Surgeon Call non-emergency contact if: you have any medication questions, your symptoms worsen, your pain is not controlled, your pain is concerning for you, you have a fever, your temperature is above 101.5, your wound has increased redness, your wound has increased drainage and your wound pain has increased Follow-up/Referrals: Prince Davis MD, FACS [Physician] - 01/07/23 11:00 am (If unable to keep follow up appt please call Dr. Davis's office and reschedule. ) Steven Dunham MD [Primary Care Provider] - (PLEASE CONTACT YOUR PCP TO FOLLOW UP 7-10 DAYS FROM DISCHARGE.) Diet: Regular Addtl Attending Provider Instructions: SPECIAL CARE INSTRUCTIONS: * Cover incisions and change daily for comfort/drainage. * * Avoid constipation- * May Use Senokot S and Milk of Magnesium twice daily as directed on the package * May use ibuprofen for pain as tolerated. * Expect some swelling and bruising. Call your doctor if: * Temperature above 101 degrees * Pain not relieved by pain medicine ordered * There is increased drainage or redness from any incision * You have any unanswered questions or concerns [phone]. FOLLOW UP VISIT: If not already scheduled, please call the office for a follow-up visit. For 2 weeksno sutures to remove OFFICE PHONE NUMBER: Dr. Davis Office Pending Studies at Discharge: Yes Studies:: surgical pathology Stand-Alone Forms: [facility] Work[facility]School Release, Smoking Cessation Medications and DC Order Prescriptions: New hydrocodone-acetaminophen 5-325 mg tablet 1 tab PO Q4H PRN (Reason: pain) Qty: 30 0RF Rx Instructions: For severe pain you may take 2 tablets but not more than 6 tablets in a single day amoxicillin-pot clavulanate 875-125 mg tablet 1 tab PO BID Qty: 14 0RF Continued Eszopiclone (Lunesta) 3 MG tablet 3 mg PO QPM Qty: 0 LAMOTRIGINE 100 MG tablet 100 mg PO HS Qty: 0 AMPHETAMINE-DEXTROAMPHETAMINE 30MG (ADDERALL 30MG) 1 TAB tablet 30 mg PO DAILY PRN (Reason: INABILITY TO CONCENTRATE) Qty: 0 Ranitidine (Zantac) 150 MG tablet 150 mg PO DAILY PRN (Reason: HEARTBURN) Qty: 0 SERTRALINE HCL (ZOLOFT) 100 MG tablet 100 mg PO QAM Qty: 0 ALUM & MAG HYDROX-SIMETHICONE (MYLANTA) 1 ROB ROB 1 dose PO DAILY PRN (Reason: Indigestion) Qty: 0 OXYBUTYNIN CHLORIDE (OXYBUTYNIN CHLORIDE ER) 5 MG tablet 1 tab PO DAILY 14 Days Qty: 14 1RF Tamsulosin HCl 0.4 MG capsule 0.4 mg PO QAM 14 Days Qty: 14 1RF Rx Instructions: Take once daily Discharge Orders: Discharge Order (Routine); Ordered 12/24/22 Ordered By: Cristian Carvalho Admission Data Admit Date/Time: 12/22/22 07:39 Attending Provider: Cristian Carvalho Admit Provider: Dony Stein Primary Care Provider: Steven Dunham Other Providers: Bharathi Astorga ; Viri Dejesus ; Prince Davis Other Interventions: Discharge Summary Assessment (RN) Last Done: 12/23/22 11:37 Coding Level of Care Code HOSP INP/OBS DISCH >30 MIN Diagnoses Acute cholecystitis K81.0 Choledocholithiasis K80.50 Abnormal LFTs R79.89 ADHD F90.9 Bipolar disorder F31.9 GERD (gastroesophageal reflux disease) K21.9 Exercise-induced asthma J45.990 DVT prophylaxis Z29.9 Obesity (BMI 30-39.9) E66.9 Time Spent (min) 35
== END 2022-12-24 13:23 | disposition home or self-care (01) ==
LOC: ED 04:11 → INTOOBSV 07:39 → EDINP 07:39 → SUATTDRO 07:39 → EDINP 13:32 → 3N 18:37